=== PATIENT | female | born 1930 | race Hispanic/Latino ===

== ENCOUNTER 2017-05-20 17:57 | Inpatient (IN) | payer MEDICARE ==
--- NOTE | 2017-05-20 19:10 | C.PDOC ---
History Of Present Illness Patient presents to the ER with daughter due to an increased amount of falls and confusion within the last few days. Patient with increased confusing and difficulty taking care of herself. Time Seen by Provider: 05/20/17 19:10 Chief Complaint (Nursing): Medical Clearance History Per: Patient History/Exam Limitations: no limitations Onset/Duration Of Symptoms: Days Current Symptoms Are (Timing): Still Present Severity: None Pain Scale Rating Of: 0 Recent travel outside of the [place]: No Past Medical History Reviewed: Historical Data, Nursing Documentation, Vital Signs Vital Signs: Last Vital Signs Temp 98.3 F 05/20/17 18:15 Pulse 86 05/20/17 18:15 Resp 18 05/20/17 18:15 BP 128/79 05/20/17 18:15 Pulse Ox 95 05/20/17 19:53 - Medical History PMH: Alzheimer's Disease, Dementia, HTN, Kidney Stones, Osteoporosis Surgical History: Cholecystectomy - [facility] Procedures DILATION OF LEFT URETER WITH INTRALUMINAL DEVICE, ENDO (12/19/16) EXTIRPATION OF MATTER FROM LEFT KIDNEY, ENDO (12/19/16) REMOVAL OF INTRALUMINAL DEVICE FROM URETER, ENDO (12/19/16) Family History: States: No Known Family Hx - Social History Hx Alcohol Use: No Hx Substance Use: No - Immunization History Hx Tetanus Toxoid Vaccination: Yes Hx Influenza Vaccination: Yes Hx Pneumococcal Vaccination: Yes Review Of Systems Constitutional: Negative for: Fever, Chills Eyes: Negative for: Redness ENT: Negative for: Throat Pain Cardiovascular: Negative for: Chest Pain Respiratory: Negative for: Shortness of Breath Gastrointestinal: Negative for: Nausea, Vomiting, Diarrhea Genitourinary: Negative for: Dysuria Musculoskeletal: Negative for: Back Pain Skin: Negative for: Rash Neurological: Positive for: Confusion Psych: Negative for: Depression Physical Exam - Physical Exam Appears: Non-toxic Skin: Warm, Dry Head: Normacephalic Eye(s): bilateral: Normal Inspection Oral Mucosa: Moist Neck: Supple Chest: Symmetrical, No Tenderness Cardiovascular: Rhythm Regular, No Murmur Respiratory: No Rales, No Rhonchi, No Wheezing Gastrointestinal/Abdominal: Soft, No Tenderness Back: No CVA Tenderness Extremity: Normal ROM, No Tenderness Neurological/Psych: Oriented x3, Normal Speech, Normal Cognition Gait: With Assistance ED Course And Treatment - Laboratory Results Result Diagrams: 05/20/17 19:38 05/20/17 19:38 ECG: Interpreted By Me, Viewed By Me ECG Rhythm: Sinus Rhythm (78), Nonspecific Changes O2 Sat by Pulse Oximetry: 95 (Room air) Pulse Ox Interpretation: Normal - Radiology CXR: Interpreted by Me, Viewed By Me CXR Interpretation: Yes: Other (unchnaged from 12/19/16). No: Infiltrates, Fracture, Pnemothorax Progress Note: Blood work, EKG, CXR and urinalysis ordered. Disposition Discussed With Dr.: Jama Salmon Comment: accepted the pt on his service and took over the care at 9PM Doctor Will See Patient In The: Hospital Counseled Patient/Family Regarding: Studies Performed, Diagnosis - Disposition Disposition: HOSPITALIZED Disposition Time: 19:10 Condition: FAIR - POA Present On Arrival: Falls Or Trauma - Clinical Impression Clinical Impression: Dementia, Ambulatory dysfunction, Falls frequently - Scribe Statement The provider has reviewed the documentation as recorded by the Scribe Virgil Ann All medical record entries made by the Scribe were at my direction and personally dictated by me. I have reviewed the chart and agree that the record accurately reflects my personal performance of the history, physical exam, medical decision making, and the department course for this patient. I have also personally directed, reviewed, and agree with the discharge instructions and disposition. Decision To Admit - Pt Status Changed To: Hospital Disposition Of: Inpatient - Admit Certification Admit to Inpatient:: After my assessment, the patient will require hospitalization for at least two midnights. This is because of the severity of symptoms shown, intensity of services needed, and/or the medical risk in this patient being treated as an outpatient. - InPatient: Physician Admission Certification: I certify that this patient requires 2 or more midnights of care for the following reason:: After my assessment, the patient will require hospitalization for at least two midnights. This is because of the severity of symptoms shown, intensity of services needed, and/or the medical risk in this patient being treated as an outpatient. - . Bed Request Type: Regular Admitting Physician: Jama Salmon Patient Diagnosis: Dementia, Ambulatory dysfunction, Falls frequently
[2017-05-20 19:45] LABS: BASO # 0.1 K/uL (0.0-0.2); BASO % 0.9 % (0.0-2.0); EOS # 0.2 K/uL (0.0-0.7); EOS % 2.7 % (0.0-4.0); HEMOGLOBIN 11.8 g/dL (11.0-16.0); LYMPH # 2.6 K/uL (1.0-4.3); LYMPH % 34.6 % (20.0-40.0); MEAN CELL VOLUME 86.7 fL (81.0-99.0); MEAN CORPUSCULAR HEMOGLOBIN 29.8 pg (27.0-31.0); MEAN CORPUSCULAR HGB CONC 34.4 g/dL (33.0-37.0); MEAN PLATELET VOLUME 6.9 fL (7.2-11.7); MONO # 0.5 K/uL (0.0-0.8); MONO % 6.1 % (0.0-10.0); NEUT # 4.2 K/uL (1.8-7.0); NEUT % 55.7 % (50.0-75.0); NRBC % 0.1 % (0.0-2.0); RBC 3.97 Mil/uL (3.80-5.20); RED CELL DISTRIBUTION WIDTH 12.9 % (11.5-14.5); WHITE BLOOD COUNT 7.5 K/uL (4.8-10.8)
[2017-05-20 19:52] LABS: VENOUS BLOOD GAS BASE EXCESS 6.2 mmol/L (0.0-2.0); VENOUS BLOOD GAS PCO2 54 mmHg (40-60); VENOUS BLOOD GAS PO2 19 mm/Hg (30-55); VENOUS BLOOD PH 7.39 (7.32-7.43)
[2017-05-20 19:52] LABS: ALT/SGPT 17 U/L (9-52); AST/SGOT 18 U/L (14-36); BLOOD UREA NITROGEN 19 mg/dL (7-17); GFR AFRICAN-AMERICAN > 60; GFR NON-AFRICAN AMERICAN > 60
[2017-05-20 19:53] LABS: CALCIUM 9.6 mg/dl (8.6-10.4); LIPASE 83 U/L (23-300)
[2017-05-20 19:54] LABS: INR 1.1; PROTHROMBIN TIME 12.1 SECONDS (9.7-12.2)
--- NOTE | 2017-05-20 21:40 | CT ---
EXAM: CT Head Without Intravenous Contrast CLINICAL HISTORY: 86 years old, female; Signs and symptoms; Dizziness TECHNIQUE: Axial computed tomography images of the head/brain without intravenous contrast. This CT exam was performed using one or more of the following dose reduction techniques: automated exposure control, adjustment of the mA and/or kV according to patient size, and/or use of iterative reconstruction technique. EXAM DATE/TIME: 05/20/2017 7:51 PM COMPARISON: There are no prior studies for comparison. FINDINGS: Brain: There is dilatation of sulci gyri and ventricles. There is no midline shift. There is decreased attenuation in periventricular white matter. There are no focal masses. There are no focal hemorrhages. Hastings-white differentiation is visualized. Ventricles: See above. Bones: Cranial vault is intact. Soft tissues: unremarkable Sinuses: There is no acute sinusitis. Ears and mastoids: Middle ears and mastoids are unremarkable. Orbits: Orbital contents are unremarkable. IMPRESSION: Atrophy and small vessel disease, no bleed
[2017-05-21 08:16] VITALS: RESP 20
[2017-05-21] MEDS: GlipiZIDE 2.5 mg SR Tab PO SCH ×2 (08:46→18:08)
--- NOTE | 2017-05-21 10:51 | RAD ---
PROCEDURE: CHEST RADIOGRAPH, 1 VIEW HISTORY: Shortness of breath COMPARISON: 12/19/2016 FINDINGS: LUNGS: Mild venous congestion. Right hilar prominence. Linear increased markings at the right lung base may represent mild atelectasis. Lung apices partially excluded. Milder patchy increased markings at the right lung base. PLEURA: No pneumothorax or pleural fluid seen. CARDIOVASCULAR: Normal. OSSEOUS STRUCTURES: Chronic fracture deformity of the left proximal humerus. VISUALIZED UPPER ABDOMEN: Normal. OTHER FINDINGS: None. IMPRESSION: Mild venous congestion. Right hilar prominence. Linear increased markings at the right lung base may represent mild atelectasis. Lung apices partially excluded. Milder patchy increased markings at the right lung base.
[2017-05-21] MEDS: Enoxaparin 40 mg Syringe SC SCH (11:22)
[2017-05-21] MEDS: Pantoprazole 40 mg EC Tab PO SCH (11:22)
--- NOTE | 2017-05-21 13:13 | CP.PCM.HP ---
History of Present Illness - History of Present Illness History of Present Illness: COMPREHENSIVE HISTORY & PHYSICAL EXAM HPI PT WAS BROUGHT TO HOSPITAL BY DAUGHTER PT IS GETTING MORE CONFUSED AND HAS FREQUENT FALLS . DIFFICULT TO CARE FOE THE PT AT HOME . 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 HTN/RENAL STONE /COPD /SENILE DEMENTIA PERSONAL HIST: Smoking. N Alcohol. N Allergy N Travel_- . FAMILY HIST : ROS : Constitutional: Negative for weight change, chills, night sweats Eyes: Negative for redness, swelling, itching, discharge, vision changes, blurry vision, double vision, glaucoma, cataracts, Ears: Negative for hearing loss, ringing, , tinnitus, vertigo Nose: Negative for rhinorrhea, stuffiness, sniffing, itching, postnasal drip, discoloration, nasal congestion and epistaxis. Throat: Negative for throat clearing, sore throat, hoarseness, difficulty swallowing and difficulty speaking. Respiratory: Negative for cough, , sputum production, chest tightness, wheezing, pleuritic chest pain ,daytime somnolence, chronic cough, hemoptysis, snoring at night, Cardiovascular: Negative for chest pain, palpitations, orthopnea, PND, Edema of legs, leg cramps, angina, claudication, , irregular heartbeat, Neurology: Negative for irritability, muscle weakness, numbness and tingling, seizures, tremors, migraines, slurred speech, syncope. POS. PROGRRESIVE MEMORY LOSS Gastrointestinal: Negative for difficulty swallowing, diarrhea, constipation, black stools, rectal bleeding, nausea, flatulence, reflux, poor appetite, changes in bowel habits, abdominal pain Genitourinary: Negative for frequent urination, hematuria, discharge, incontinence, urinary retention, frequent UTI, Psychiatric: Negative for depression, anxiety/panic, suicidal tendencies, Musculoskeletal: Negative for swollen joints, back pain, , neck pain, morning stiffness of joints, . FREQUENT FALLS Skin: Negative for rash, ulcers, itching, dry skin and pigmented lesions. P/E: Constitutional: Appears stated age and in no apparent distress. Head: Normocephalic. Ears: External ear canals patent without inflammation. Tympanic membranes intact with normal light reflex and landmark. Eyes: Pupils are central, bilaterally equal, symmetrical and reacts to light with normal movements and no icterus or pallor. Nose: External nares are patent. Mucosa is pink Mouth-Throat: Good general appearance and condition. No post-pharyngeal/oropharyngeal erythema and tonsillar hypertrophy. Good dental hygiene. Neck-Lymphatic: Neck is supple with normal ROM, no thyromegaly, lymph nodes or masses. JVD is normal with no carotid bruit. Lungs: Clear to percussion and auscultation with bilateral normal air entry. SCATTERED RONCHI Cardiovascular: S1 and S2 are normal with no murmurs, gallops and rub. GI Exam: No hepatomegaly. Abdomen is soft and non-tender. No Organomegaly , masses or hernias are evident and bowel sounds are normal and active. Neurology: Higher function and all cranial nerves intact, with no gross motor or sensory deficit. Superficial and deep reflexes are normal with downwards planters. No cerebellar deficit with normal gait. Musculoskeletal: No tender spots with normal curvature of the spine with no swelling or restricted ROM of the small and large joints. Extremities: Homans sign absent. Intact pulses with no pitting edema, calf tenderness or skin color changes. Skin: No rash, eruptions or abnormal skin pigmentation LAB/RADIOLOGY: ASSESMENT : CHANGE OF MENTAL STATUS WITH WORSENING MEMORY HTN SENILE DEMENTIA PLAN: SEE ORDERS Present on Admission - Present on Admission Any Indicators Present on Admission: No Past Patient History - Past Medical History & Family History Past Medical History?: Yes - Past Social History Smoking Status: Never Smoked - CARDIAC Hx Cardiac Disorders: Yes Hx Hypertension: Yes - PULMONARY Hx Respiratory Disorders: No - NEUROLOGICAL Hx Neurological Disorder: Yes Hx Alzheimer's Disease: Yes Hx Dementia: Yes - HEENT Hx HEENT Problems: Yes Other/Comment: glasses for reading - RENAL Hx Chronic Kidney Disease: Yes Hx Kidney Stones: Yes - ENDOCRINE/METABOLIC Hx Endocrine Disorders: Yes Hx Diabetes Mellitus Type 2: Yes - HEMATOLOGICAL/ONCOLOGICAL Hx Blood Disorders: No - INTEGUMENTARY Hx Dermatological Problems: No - MUSCULOSKELETAL/RHEUMATOLOGICAL Hx Musculoskeletal Disorders: Yes Hx Falls: Yes Hx Osteoporosis: Yes Hx Unsteady Gait: Yes - GASTROINTESTINAL Hx Gastrointestinal Disorders: No - GENITOURINARY/GYNECOLOGICAL Hx Genitourinary Disorders: No - PSYCHIATRIC Hx Psychophysiologic Disorder: No Hx Substance Use: No - SURGICAL HISTORY Hx Surgeries: Yes Hx Cholecystectomy: Yes - ANESTHESIA Hx Anesthesia: Yes Hx Anesthesia Reactions: No Hx Malignant Hyperthermia: No Meds Allergies/Adverse Reactions: Allergies Allergy/AdvReac Type Severity Reaction Status Date / Time No Known Allergies Allergy Verified 05/20/17 18:12 Results - Vital Signs Recent Vital Signs: Last Vital Signs Temp 97.7 F 05/21/17 08:15 Pulse 70 05/21/17 08:15 Resp 20 05/21/17 08:15 BP 154/80 H 05/21/17 11:22 Pulse Ox 99 05/21/17 08:15 - Labs Result Diagrams: 05/20/17 19:38 05/20/17 19:38 Labs: Laboratory Results - last 24 hr 05/21/17 07:47 POC Glucose (mg/dL) 101
[2017-05-21] MEDS: (Novolin R) Insulin Human Regular 100 units/ml vial SC SCH ×2 (17:33→21:41)
[2017-05-22] MEDS: (Novolin R) Insulin Human Regular 100 units/ml vial SC SCH ×4 (08:20→22:02)
[2017-05-22] MEDS: GlipiZIDE 2.5 mg SR Tab PO SCH ×2 (08:20→16:42)
[2017-05-22] MEDS: Pantoprazole 40 mg EC Tab PO SCH (10:49)
[2017-05-22] MEDS: Enoxaparin 40 mg Syringe SC SCH (10:49)
--- NOTE | 2017-05-22 13:16 | CP.PCM.PN ---
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 TERM CARE PER FAMILY Objective - Vital Signs/Intake and Output Vital Signs (last 24 hours): Temp Pulse Resp BP Pulse Ox 98.3 F 76 20 153/82 H 98 05/22/17 08:00 05/22/17 08:00 05/22/17 08:00 05/22/17 10:49 05/22/17 08:00 Intake and Output: 05/22/17 05/22/17 11:59 23:59 Intake Total 0 Balance 0 - Medications Medications: Current Medications Enalapril Maleate (Vasotec) 5 mg PO DAILY [facility] Last Admin: 05/22/17 10:49 Dose: 5 mg Enoxaparin Sodium (Lovenox) 40 mg SC DAILY [facility] Last Admin: 05/22/17 10:49 Dose: 40 mg Glipizide (Glucotrol Xl) 2.5 mg PO ACBD [facility] Last Admin: 05/22/17 08:20 Dose: 2.5 mg Insulin Human Regular (Novolin R) 0 unit SC ACHS [facility] PRN Reason: Protocol Last Admin: 05/22/17 11:55 Dose: 2 unit Memantine (Namenda) 5 mg PO DAILY [facility] Last Admin: 05/22/17 10:49 Dose: 5 mg Metformin HCl (Glucophage) 500 mg PO BIDBS [facility] Pantoprazole Sodium (Protonix Ec Tab) 40 mg PO DAILY [facility] Last Admin: 05/22/17 10:49 Dose: 40 mg - Labs Labs: PT 12.1 SECONDS (9.7-12.2) 05/20/17 19:38 INR 1.1 05/20/17 19:38 APTT 30 SECONDS (21-34) 05/20/17 19:38
[2017-05-23 07:08] LABS: BASO % 0.7 % (0.0-2.0); EOS # 0.2 K/uL (0.0-0.7); EOS % 3.1 % (0.0-4.0); HEMOGLOBIN 10.9 g/dL (11.0-16.0); LYMPH % 35.1 % (20.0-40.0); MEAN CELL VOLUME 85.9 fL (81.0-99.0); MEAN CORPUSCULAR HEMOGLOBIN 29.9 pg (27.0-31.0); MEAN CORPUSCULAR HGB CONC 34.8 g/dL (33.0-37.0); MEAN PLATELET VOLUME 7.4 fL (7.2-11.7); MONO # 0.5 K/uL (0.0-0.8); NEUT # 3.1 K/uL (1.8-7.0); NEUT % 53.1 % (50.0-75.0); RBC 3.64 Mil/uL (3.80-5.20); RED CELL DISTRIBUTION WIDTH 12.9 % (11.5-14.5); WHITE BLOOD COUNT 5.8 K/uL (4.8-10.8)
[2017-05-23 07:40] LABS: GFR AFRICAN-AMERICAN > 60; GFR NON-AFRICAN AMERICAN > 60
[2017-05-23 07:41] LABS: BLOOD UREA NITROGEN 15 mg/dL (7-17); CALCIUM 8.8 mg/dl (8.6-10.4)
[2017-05-23] MEDS: (Novolin R) Insulin Human Regular 100 units/ml vial SC SCH ×4 (08:02→22:03)
[2017-05-23] MEDS: GlipiZIDE 2.5 mg SR Tab PO SCH ×2 (08:03→16:30)
[2017-05-23] MEDS: Enoxaparin 40 mg Syringe SC SCH (10:55)
[2017-05-23] MEDS: Potassium Chloride 20 mEq/15 ml LIQ UD PO SCH ×2 (10:55→14:51)
[2017-05-23] MEDS: Pantoprazole 40 mg EC Tab PO SCH (10:55)
--- NOTE | 2017-05-23 13:34 | CP.PCM.PN ---
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 TERM CARE PER FAMILY Objective - Vital Signs/Intake and Output Vital Signs (last 24 hours): Temp Pulse Resp BP Pulse Ox 97.5 F L 71 20 122/78 96 05/23/17 08:37 05/23/17 08:37 05/23/17 08:37 05/23/17 10:55 05/23/17 08:37 Intake and Output: 05/23/17 05/23/17 11:59 23:59 Intake Total 200 Balance 200 - Medications Medications: Current Medications Enalapril Maleate (Vasotec) 5 mg PO DAILY [facility] Last Admin: 05/23/17 10:55 Dose: 5 mg Enoxaparin Sodium (Lovenox) 40 mg SC DAILY [facility] Last Admin: 05/23/17 10:55 Dose: 40 mg Glipizide (Glucotrol Xl) 2.5 mg PO ACBD [facility] Last Admin: 05/23/17 08:03 Dose: Not Given Insulin Human Regular (Novolin R) 0 unit SC ACHS [facility] PRN Reason: Protocol Last Admin: 05/23/17 13:03 Dose: 3 unit Memantine (Namenda) 5 mg PO DAILY [facility] Last Admin: 05/23/17 10:55 Dose: 5 mg Metformin HCl (Glucophage) 500 mg PO BIDBS [facility] Last Admin: 05/23/17 08:03 Dose: Not Given Pantoprazole Sodium (Protonix Ec Tab) 40 mg PO DAILY [facility] Last Admin: 05/23/17 10:55 Dose: 40 mg Potassium Chloride (Potassium Chloride Oral Soln) 40 meq PO Q4H [facility] Stop: 05/23/17 14:16 Last Admin: 05/23/17 10:55 Dose: 40 meq - Labs Labs: 05/23/17 06:35 05/23/17 06:35 PT 12.1 SECONDS (9.7-12.2) 05/20/17 19:38 INR 1.1 05/20/17 19:38 APTT 30 SECONDS (21-34) 05/20/17 19:38
[2017-05-23 18:52] LABS: SQUAMOUS EPITHIAL 1 /hpf (0-5); URINE BACTERIA FEW (<OCC); URINE BILIRUBIN NEGATIVE (NEGATIVE); URINE BLOOD NEGATIVE (NEGATIVE); URINE CLARITY Clear (Clear); URINE COLOR Yellow (YELLOW); URINE GLUCOSE (UA) NORMAL (Normal); URINE LEUKOCYTE ESTERASE 3+ Leu/uL (Negative); URINE NITRATE NEGATIVE (NEGATIVE); URINE PROTEIN NEGATIVE (NEGATIVE); URINE UROBILINOGEN NORMAL mg/dL (0.2-1.0)
[2017-05-24] MEDS: Pantoprazole 40 mg EC Tab PO SCH (10:38)
[2017-05-24] MEDS: Enoxaparin 40 mg Syringe SC SCH (10:39)
[2017-05-24] MEDS: (Novolin R) Insulin Human Regular 100 units/ml vial SC SCH ×3 (10:39→18:17)
[2017-05-24] MEDS: GlipiZIDE 2.5 mg SR Tab PO SCH ×2 (10:39→17:30)
--- NOTE | 2017-05-24 11:55 | CP.PCM.CON ---
History of Present Illness - History of Present Illness History of Present Illness: Pt seen at bedside for eval of at risk foot care. Pt seen at request of PCP for c/o painful thickened nails that are hard to cut. Past Patient History - Past Medical History & Family History Past Medical History?: Yes - Past Social History Smoking Status: Never Smoked - CARDIAC Hx Cardiac Disorders: Yes Hx Hypertension: Yes - PULMONARY Hx Respiratory Disorders: No - NEUROLOGICAL Hx Neurological Disorder: Yes Hx Alzheimer's Disease: Yes Hx Dementia: Yes - HEENT Hx HEENT Problems: Yes Other/Comment: glasses for reading - RENAL Hx Chronic Kidney Disease: Yes Hx Kidney Stones: Yes - ENDOCRINE/METABOLIC Hx Diabetes Mellitus Type 2: Yes - HEMATOLOGICAL/ONCOLOGICAL Hx Blood Disorders: No - INTEGUMENTARY Hx Dermatological Problems: No - MUSCULOSKELETAL/RHEUMATOLOGICAL Hx Arthritis: Yes (KNEES; L SHOULDER) - GASTROINTESTINAL Hx Gastrointestinal Disorders: No - GENITOURINARY/GYNECOLOGICAL Hx Genitourinary Disorders: No - PSYCHIATRIC Hx Psychophysiologic Disorder: No Hx Substance Use: No - SURGICAL HISTORY Hx Surgeries: Yes Hx Cholecystectomy: Yes - ANESTHESIA Hx Anesthesia: Yes Hx Anesthesia Reactions: No Hx Malignant Hyperthermia: No Meds Allergies/Adverse Reactions: Allergies Allergy/AdvReac Type Severity Reaction Status Date / Time No Known Allergies Allergy Verified 05/20/17 18:12 - Medications Medications: Current Medications Enalapril Maleate (Vasotec) 5 mg PO DAILY [facility] Last Admin: 05/24/17 10:38 Dose: 5 mg Enoxaparin Sodium (Lovenox) 40 mg SC DAILY [facility] Last Admin: 05/24/17 10:39 Dose: 40 mg Glipizide (Glucotrol Xl) 2.5 mg PO ACBD [facility] Last Admin: 05/24/17 10:39 Dose: 2.5 mg Insulin Human Regular (Novolin R) [address] [facility] PRN Reason: Protocol Last Admin: 05/24/17 10:39 Dose: Not Given Memantine (Namenda) 5 mg PO DAILY [facility] Last Admin: 05/24/17 10:38 Dose: 5 mg Metformin HCl (Glucophage) 500 mg PO BIDBS [facility] Last Admin: 05/24/17 10:38 Dose: 500 mg Pantoprazole Sodium (Protonix Ec Tab) 40 mg PO DAILY [facility] Last Admin: 05/24/17 10:38 Dose: 40 mg Physical Exam - Additional Findings Additional findings: DP/PT pulses 1/4 B/L. Thickened, elongated, dystrophic, brittle, yellow, discolored nails x 10 with subungual debris (B/L 1-5). No breaks in skin. Skin is shiny and atrophic. Results - Vital Signs Recent Vital Signs: Last Vital Signs Temp 97.2 F L 05/24/17 08:00 Pulse 72 05/24/17 08:00 Resp 20 05/24/17 08:00 BP 127/70 05/24/17 10:38 Pulse Ox 97 05/24/17 08:00 - Labs Result Diagrams: 05/23/17 06:35 05/23/17 06:35 Labs: Laboratory Results - last 24 hr 05/23/17 05/23/17 05/23/17 16:59 18:35 21:33 POC Glucose (mg/dL) 134 H 214 H Urine Color Yellow Urine Clarity Clear Urine pH 7.0 Ur Specific [place] 1.013 Urine Protein Negative Urine Glucose (UA) Normal Urine Ketones Negative Urine Blood Negative Urine Nitrate Negative Urine Bilirubin Negative Urine Urobilinogen Normal Ur Leukocyte Esterase 3+ H Urine WBC (Auto) 26 H Urine RBC (Auto) < 1 Ur Squamous Epith Cells 1 Ur Transition Epith Cell < 1 Urine Bacteria Few H 05/24/17 05/24/17 07:16 11:38 POC Glucose (mg/dL) 216 H 259 H Urine Color Urine Clarity Urine pH Ur Specific [place] Urine Protein Urine Glucose (UA) Urine Ketones Urine Blood Urine Nitrate Urine Bilirubin Urine Urobilinogen Ur Leukocyte Esterase Urine WBC (Auto) Urine RBC (Auto) Ur Squamous Epith Cells Ur Transition Epith Cell Urine Bacteria Assessment & Plan - Assessment and Plan (Free Text) Assessment: 1. Onychomycosis 2. PVD 3. Fissured skin 4. Arthritis Plan: 1. H+P 2. Sharp debridment of mycotic nails 3. Cont with palliative care 4. Will f/u as outpatient Thank you for allowing us to participate in the care of your patient.
--- NOTE | 2017-05-24 13:27 | CP.PCM.DIS ---
Provider - Provider Date of Admission: 05/20/17 21:15 Attending physician: Jama Salmon MD Time Spent in preparation of Discharge (in minutes): 30 Hospital Course - Lab Results Lab Results: Micro Results 05/23/17 15:00 Urine Urine Culture - Preliminary Gram Negative Julio César Most Recent Lab Values WBC 5.8 K/uL (4.8-10.8) 05/23/17 06:35 RBC 3.64 Mil/uL (3.80-5.20) L 05/23/17 06:35 Hgb 10.9 g/dL (11.0-16.0) L 05/23/17 06:35 Hct 31.3 % (34.0-47.0) L 05/23/17 06:35 MCV 85.9 fL (81.0-99.0) 05/23/17 06:35 MCH 29.9 pg (27.0-31.0) 05/23/17 06:35 MCHC 34.8 g/dL (33.0-37.0) 05/23/17 06:35 RDW 12.9 % (11.5-14.5) 05/23/17 06:35 Plt Count 219 K/uL (130-400) 05/23/17 06:35 MPV 7.4 fL (7.2-11.7) 05/23/17 06:35 Neut % (Auto) 53.1 % (50.0-75.0) 05/23/17 06:35 Lymph % (Auto) 35.1 % (20.0-40.0) 05/23/17 06:35 Keith % (Auto) 8.0 % (0.0-10.0) 05/23/17 06:35 Eos % (Auto) 3.1 % (0.0-4.0) 05/23/17 06:35 Baso % (Auto) 0.7 % (0.0-2.0) 05/23/17 06:35 Neut # 3.1 K/uL (1.8-7.0) 05/23/17 06:35 Lymph # 2.0 K/uL (1.0-4.3) 05/23/17 06:35 Keith # 0.5 K/uL (0.0-0.8) 05/23/17 06:35 Eos # 0.2 K/uL (0.0-0.7) 05/23/17 06:35 Baso # 0.0 K/uL (0.0-0.2) 05/23/17 06:35 PT 12.1 SECONDS (9.7-12.2) 05/20/17 19:38 INR 1.1 05/20/17 19:38 APTT 30 SECONDS (21-34) 05/20/17 19:38 pO2 19 mm/Hg (30-55) L 05/20/17 19:48 VBG pH 7.39 (7.32-7.43) 05/20/17 19:48 VBG pCO2 54 mmHg (40-60) 05/20/17 19:48 VBG HCO3 27.9 mmol/L 05/20/17 19:48 VBG Total CO2 34.4 mmol/L (22-28) H 05/20/17 19:48 VBG O2 Sat (Calc) 30.6 % (40-65) L 05/20/17 19:48 VBG Base Excess 6.2 mmol/L (0.0-2.0) H 05/20/17 19:48 VBG Potassium 3.7 mmol/L (3.6-5.2) 05/20/17 19:48 Sodium 141.0 mmol/l (132-148) 05/20/17 19:48 Chloride 105.0 mmol/L (98-107) 05/20/17 19:48 Glucose 121 mg/dl (65-105) H 05/20/17 19:48 Lactate 2.3 mmol/L (0.7-2.1) H 05/20/17 19:48 Sodium 139 mmol/L (132-148) 05/23/17 06:35 Potassium 3.2 mmol/L (3.6-5.2) L 05/23/17 06:35 Chloride 104 mmol/L (98-107) 05/23/17 06:35 Carbon Dioxide 26 mmol/L (22-30) 05/23/17 06:35 Anion Gap 12 (10-20) 05/23/17 06:35 BUN 15 mg/dL (7-17) 05/23/17 06:35 Creatinine 0.6 MG/DL (0.7-1.2) L 05/23/17 06:35 Est GFR ( Amer) > 60 05/23/17 06:35 Est GFR (Non-Af Amer) > 60 05/23/17 06:35 POC Glucose (mg/dL) 259 mg/dL (65-110) H 05/24/17 11:38 Random Glucose 81 mg/dL (65-105) 05/23/17 06:35 Calcium 8.8 mg/dl (8.6-10.4) 05/23/17 06:35 Total Bilirubin 0.6 mg/dL (0.2-1.3) 05/20/17 19:38 AST 18 U/L (14-36) 05/20/17 19:38 ALT 17 U/L (9-52) 05/20/17 19:38 Alkaline Phosphatase 67 U/L (38-126) 05/20/17 19:38 Total Protein 8.0 g/dL (6.3-8.3) 05/20/17 19:38 Albumin 4.0 g/dL (3.5-5.0) 05/20/17 19:38 Globulin 4.0 gm/dL (2.2-3.9) H 05/20/17 19:38 Albumin/Globulin Ratio 1.0 (1.0-2.1) 05/20/17 19:38 Lipase 83 U/L (23-300) 05/20/17 19:38 Venous Blood Potassium 3.7 mmol/L (3.6-5.2) 05/20/17 19:48 Urine Color Yellow (YELLOW) 05/23/17 18:35 Urine Clarity Clear (Clear) 05/23/17 18:35 Urine pH 7.0 (5.0-8.0) 05/23/17 18:35 Ur Specific [place] 1.013 (1.003-1.030) 05/23/17 18:35 Urine Protein Negative mg/dL (NEGATIVE) 05/23/17 18:35 Urine Glucose (UA) Normal mg/dL (Normal) 05/23/17 18:35 Urine Ketones Negative mg/dL (NEGATIVE) 05/23/17 18:35 Urine Blood Negative (NEGATIVE) 05/23/17 18:35 Urine Nitrate Negative (NEGATIVE) 05/23/17 18:35 Urine Bilirubin Negative (NEGATIVE) 05/23/17 18:35 Urine Urobilinogen Normal mg/dL (0.2-1.0) 05/23/17 18:35 Ur Leukocyte Esterase 3+ Bibiana/uL (Negative) H 05/23/17 18:35 Urine WBC (Auto) 26 /hpf (0-5) H 05/23/17 18:35 Urine RBC (Auto) < 1 /hpf (0-3) 05/23/17 18:35 Ur Squamous Epith Cells 1 /hpf (0-5) 05/23/17 18:35 Ur Transition Epith Cell < 1 /hpf (0-3) 05/23/17 18:35 Urine Bacteria Few (<OCC) H 05/23/17 18:35 - Hospital Course Hospital Course: PT WAS BROUGHT TO HOSPITAL BY DAUGHTER PT IS GETTING MORE CONFUSED AND HAS FREQUENT FALLS . DIFFICULT TO CARE FOE THE PT AT HOME . PT IS ADMITTED TO R/O ANY ACUTE PATHOLOGY AND WILL BE [facility]ERRED TO [facility] FOR SENIOR CARE CARE PAST HIST. HTN/RENAL STONE /COPD /SENILE DEMENTIA PT. WAS MANAGED WITH ROUTINE TREATMENT FAMILY REFUSED TO GIVE FINANCIAL INFO TO MEDICAID PT HAS NO MEDICARE DAYS LEFT AFTER EXTENSIVE DISCUSSION BETWEEN SS AND DAUGHTER , THE FAMILY DECIDED TO TAKE PT HOME AND WILL MANAGE AT HOME Discharge Plan - Follow Up Plan Condition: FAIR Disposition: HOME/ ROUTINE
--- NOTE | 2017-05-24 16:18 | CP.PCM.CON ---
History of Present Illness - History of Present Illness History of Present Illness: INFECTIOUS DISEASE CONSULT: HPI: 86-year-old female with history of Alzheimer's dementia, hypertension, kidney stones, osteoporosis who was brought in by family members on 05/20/17 due to increased amount of falls and confusion within the last few days prior to admission. As per patient daughter patient was unable to take care of herself at home. She was recently discharged from subacute rehabilitation after a long stay at [facility] subacute rehabilitation. Patient had extensive workup including CT scan of the head on admission which showed atrophy and small vessel disease and no acute bleed. No history of fever or chills. Patient denies any cough or expectoration or shortness of breath. Patient was ready to be discharged today when urine cultures reported to be positive for gram-negative rods. History obtained mainly from the chart and the staff. Patient speaks [place] only and difficult to obtain facts. As per staff patient appetite is fair and patient denies any hematuria, dysuria or flank pain. Infectious disease consultation requested by PMD for further evaluation. PMH: Alzheimer's Disease, Dementia, HTN, Kidney Stones, Osteoporosis Surgical History: Cholecystectomy - [facility] Procedures DILATION OF LEFT URETER WITH INTRALUMINAL DEVICE, ENDO (12/19/16) EXTIRPATION OF MATTER FROM LEFT KIDNEY, ENDO (12/19/16) REMOVAL OF INTRALUMINAL DEVICE FROM URETER, ENDO (12/19/16) Family History: States: No Known Family Hx - Social History Hx Alcohol Use: No Hx Substance Use: No - Immunization History Hx Tetanus Toxoid Vaccination: Yes Hx Influenza Vaccination: Yes Hx Pneumococcal Vaccination: Yes Review of Systems - Constitutional Constitutional: absent: Chills, Fever Past Patient History - Past Medical History & Family History Past Medical History?: Yes - Past Social History Smoking Status: Never Smoked - CARDIAC Hx Cardiac Disorders: Yes Hx Hypertension: Yes - PULMONARY Hx Respiratory Disorders: No - NEUROLOGICAL Hx Neurological Disorder: Yes Hx Alzheimer's Disease: Yes Hx Dementia: Yes - HEENT Hx HEENT Problems: Yes Other/Comment: glasses for reading - RENAL Hx Chronic Kidney Disease: Yes Hx Kidney Stones: Yes - ENDOCRINE/METABOLIC Hx Diabetes Mellitus Type 2: Yes - HEMATOLOGICAL/ONCOLOGICAL Hx Blood Disorders: No - INTEGUMENTARY Hx Dermatological Problems: No - MUSCULOSKELETAL/RHEUMATOLOGICAL Hx Arthritis: Yes (KNEES; L SHOULDER) - GASTROINTESTINAL Hx Gastrointestinal Disorders: No - GENITOURINARY/GYNECOLOGICAL Hx Genitourinary Disorders: No - PSYCHIATRIC Hx Psychophysiologic Disorder: No Hx Substance Use: No - SURGICAL HISTORY Hx Surgeries: Yes Hx Cholecystectomy: Yes - ANESTHESIA Hx Anesthesia: Yes Hx Anesthesia Reactions: No Hx Malignant Hyperthermia: No Meds Allergies/Adverse Reactions: Allergies Allergy/AdvReac Type Severity Reaction Status Date / Time No Known Allergies Allergy Verified 05/20/17 18:12 - Medications Medications: Current Medications Enalapril Maleate (Vasotec) 5 mg PO DAILY [facility] Last Admin: 05/24/17 10:38 Dose: 5 mg Enoxaparin Sodium (Lovenox) 40 mg SC DAILY [facility] Last Admin: 05/24/17 10:39 Dose: 40 mg Glipizide (Glucotrol Xl) 2.5 mg PO ACBD [facility] Last Admin: 05/24/17 10:39 Dose: 2.5 mg Insulin Human Regular (Novolin R) 0 unit SC ACHS [facility] PRN Reason: Protocol Last Admin: 05/24/17 12:55 Dose: 4 unit Memantine (Namenda) 5 mg PO DAILY [facility] Last Admin: 05/24/17 10:38 Dose: 5 mg Metformin HCl (Glucophage) 500 mg PO BIDBS [facility] Last Admin: 05/24/17 10:38 Dose: 500 mg Pantoprazole Sodium (Protonix Ec Tab) 40 mg PO DAILY [facility] Last Admin: 05/24/17 10:38 Dose: 40 mg Physical Exam - Constitutional Appears: No Acute Distress, Confused - Head Exam Head Exam: NORMAL INSPECTION - Eye Exam Eye Exam: EOMI, PERRL - ENT Exam ENT Exam: Normal Oropharynx - Neck Exam Neck exam: Positive for: Normal Inspection - Respiratory Exam Respiratory Exam: Clear to Auscultation Bilateral, NORMAL BREATHING PATTERN - Cardiovascular Exam Cardiovascular Exam: REGULAR RHYTHM, +S1, +S2. absent: Systolic Murmur - GI/Abdominal Exam GI & Abdominal Exam: Normal Bowel Sounds, Soft. absent: Organomegaly - Extremities Exam Extremities exam: Positive for: normal capillary refill, pedal pulses present. Negative for: calf tenderness, pedal edema - Neurological Exam Neurological exam: CN II-XII Intact, Reflexes Normal - Skin Skin Exam: Normal Color, Warm Results - Vital Signs Recent Vital Signs: Last Vital Signs Temp 97.2 F L 05/24/17 08:00 Pulse 81 05/24/17 12:20 Resp 20 05/24/17 08:00 BP 127/70 05/24/17 10:38 Pulse Ox 96 05/24/17 12:20 - Labs Result Diagrams: 05/23/17 06:35 05/23/17 06:35 Labs: Laboratory Results - last 24 hr 05/23/17 05/23/17 05/23/17 16:59 18:35 21:33 POC Glucose (mg/dL) 134 H 214 H Urine Color Yellow Urine Clarity Clear Urine pH 7.0 Ur Specific [place] 1.013 Urine Protein Negative Urine Glucose (UA) Normal Urine Ketones Negative Urine Blood Negative Urine Nitrate Negative Urine Bilirubin Negative Urine Urobilinogen Normal Ur Leukocyte Esterase 3+ H Urine WBC (Auto) 26 H Urine RBC (Auto) < 1 Ur Squamous Epith Cells 1 Ur Transition Epith Cell < 1 Urine Bacteria Few H 05/24/17 05/24/17 07:16 11:38 POC Glucose (mg/dL) 216 H 259 H Urine Color Urine Clarity Urine pH Ur Specific [place] Urine Protein Urine Glucose (UA) Urine Ketones Urine Blood Urine Nitrate Urine Bilirubin Urine Urobilinogen Ur Leukocyte Esterase Urine WBC (Auto) Urine RBC (Auto) Ur Squamous Epith Cells Ur Transition Epith Cell Urine Bacteria - Imaging and Cardiology Chest x-ray Status: Report reviewed by me (MILD VENOUS CONGESTION.) Assessment & Plan (1) UTI (urinary tract infection) Assessment and Plan: PATIENT PRESENTLY HAS ASYMPTOMATIC BACTERIURIA / OR COLONIZATION. NO FEVER OR LEUKOCYTOSIS. WILL TRY TO GET CLEAN CATCH MIDSTREAM ua AND URINE CULTURE AND FOLLOW UP CLOSELY OUTPATIENT. DISCUSSED WITH THE STAFF AND NURSE PRACTITIONER MS ANITA SMITH. PATIENT HAS PREVIOUS HISTORY BILATERAL RENAL CALCULI AND PREVIOUS LEFT URETERAL STENT ON ct OF THE ABDOMEN AND PELVIS PERFORMED 12/28/16. PATIENT DOES HAVE HISTORY OF PREVIOUS UTI WITH PROTEUS MIRABILIS/ VRE PATIENT CAN BE FOLLOWED UP OUTPATIENT. fOLLOW UP IN OFFICE NEXT WEEK. Status: Acute (2) Dementia Assessment and Plan: CT HEAD 05/20/17 SHOWS ATROPHY AND SMALL VESSEL DISEASE. NO INTRACRANIAL BLEED. PATIENT HAS NO DEFICITS. CONTINUE TO OBSERVE. Status: Acute (3) Falls frequently Status: Acute
[2017-05-24 17:02] VITALS: BP 123/74; PULSE 88; TEMP 97.8; O2SAT 95
[2017-05-24 17:36] LABS: SQUAMOUS EPITHIAL 1 /hpf (0-5); URINE BACTERIA MANY (<OCC); URINE BILIRUBIN NEGATIVE (NEGATIVE); URINE BLOOD 1+ (NEGATIVE); URINE CLARITY Hazy (Clear); URINE COLOR Yellow (YELLOW); URINE GLUCOSE (UA) NORMAL (Normal); URINE LEUKOCYTE ESTERASE 3+ Leu/uL (Negative); URINE NITRATE POSITIVE (NEGATIVE); URINE PROTEIN NEGATIVE (NEGATIVE); URINE UROBILINOGEN NORMAL mg/dL (0.2-1.0); WBC CLUMPS MANY /hpf
--- NOTE | 2017-06-10 13:30 | CARD ---
APPROVED REPORT EKG Measurement Heart [id number] <Conclusion> Normal sinus rhythm Low voltage QRS Borderline ECG
== END 2017-05-24 18:15 | disposition home or self-care (01) | DRG 57 ==
LOC: C.ER 17:57 → C.9E 21:15 → C.3T 22:15
PROVIDERS: ADMIT Internal Medicine Cardiovascular Disease; ATTEND Internal Medicine Cardiovascular Disease
DX: G30.1 Alzheimer's disease with late onset (principal); E11.22 Type 2 diabetes mellitus with diabetic chronic kidney disease; N39.0 Urinary tract infection, site not specified; F02.80 Dementia in other diseases classified elsewhere, unspecified severity, without behavioral disturbance, psychotic disturbance, mood disturbance, and anxiety; B35.1 Tinea unguium; I12.9 Hypertensive chronic kidney disease with stage 1 through stage 4 chronic kidney disease, or unspecified chronic kidney disease; J44.9 Chronic obstructive pulmonary disease, unspecified; I73.9 Peripheral vascular disease, unspecified; M19.90 Unspecified osteoarthritis, unspecified site; N20.0 Calculus of kidney; R29.6 Repeated falls

== ENCOUNTER 2017-06-12 15:51 | Inpatient (IN) | payer MEDICARE ==
--- NOTE | 2017-06-12 16:18 | C.PDOC ---
History Of Present Illness Patient is a 86 y/o female, whose past medical history includes Alzheimer's, dementia, hypertension, kidney stones, and osteoporosis, presents to the emergency department with complaints of right sided chest pain. Patient states she feels pain because she fell. Patient was discharged on 05/24 after a fall. Otherwise, denies any cough, fever, or any other associated symptoms at this time. History limited due to dementia. LIMITED DUE TO DEMENTIA CO R SIDED CP "BC I FEEL". DENIES COUGH, FEVER, OTHER SX history of Alzheimer's dementia, hypertension, kidney stones, osteoporosis DC 05/24 SP FALL, ABN UA. ROS UTO EXAM NONTOXIC NAD HEENT ATRAUM LUNGS NEG CHEST WALL ATRAUM NONTEND BACK B/L MID BACK TEND ATRAUM PAIN W AROM NO LS TEND ABD NEG NEURO NO FOCAL DEF EXT R KNEE MOD SWELL. LIMITED AROM DUE TO PAIN. NO DEFORM SKIN +HEALING ABRASION R KNEE. NO INFXN NEG Time Seen by Provider: 06/12/17 16:15 Chief Complaint (Nursing): Back Pain History Per: Patient History/Exam Limitations: clinical condition Current Symptoms Are (Timing): Still Present Recent travel outside of the [place]: No Additional History Per: Patient Past Medical History Reviewed: Historical Data, Nursing Documentation, Vital Signs Vital Signs: Last Vital Signs Temp 98.1 F 06/12/17 16:01 Pulse 66 06/12/17 17:48 Resp 18 06/12/17 17:48 BP 122/57 L 06/12/17 17:48 Pulse Ox 98 06/12/17 18:48 - Medical History PMH: Alzheimer's Disease, Arthritis (KNEES; L SHOULDER), Dementia, HTN, Hypercholesterolemia, Kidney Stones, Osteoporosis, Chronic Kidney Disease Surgical History: Cholecystectomy - [facility] Procedures DILATION OF LEFT URETER WITH INTRALUMINAL DEVICE, ENDO (12/19/16) EXTIRPATION OF MATTER FROM LEFT KIDNEY, ENDO (12/19/16) REMOVAL OF INTRALUMINAL DEVICE FROM URETER, ENDO (12/19/16) Family History: States: Unknown Family Hx - Social History Hx Alcohol Use: No Hx Substance Use: No - Immunization History Hx Tetanus Toxoid Vaccination: Yes Hx Influenza Vaccination: Yes Hx Pneumococcal Vaccination: Yes Review Of Systems Review Of Systems: ROS cannot be obtained secondary to pt's inabilty to answer questions. Constitutional: Negative for: Fever, Chills Cardiovascular: Positive for: Chest Pain Respiratory: Negative for: Cough Physical Exam - Physical Exam Appears: Non-toxic, No Acute Distress Skin: Warm, Dry, Other (healing abrasion to right knee, no signs of infection) Head: Atraumatic, Normacephalic Eye(s): bilateral: Normal Inspection, PERRL, EOMI Ear(s): Bilateral: Normal Nose: Normal Oral Mucosa: Moist Throat: Normal, No Erythema, No Exudate Chest: Symmetrical, No Deformity, No Tenderness Cardiovascular: Rhythm Regular, No Murmur Respiratory: Normal Breath Sounds, No Accessory Muscle Use, No Rales, No Rhonchi , No Wheezing Gastrointestinal/Abdominal: Soft, No Tenderness Back: No CVA Tenderness, No Vertebral Tenderness, Paraspinal Tenderness ( tenderness to bilateral mid back, no LS tenderness, pain with ROM), Other Extremity: No Normal ROM (limited ROM of right knee secondary to pain), Capillary Refill (< 2 sec.), No Deformity, Swelling (moderate swelling to right knee) Neurological/Psych: Oriented x3, Normal Speech, Normal Cognition ED Course And Treatment - Laboratory Results Result Diagrams: 06/12/17 17:04 06/12/17 17:04 ECG: Interpreted By Mn ECG Rhythm: Sinus Rhythm ECG Interpretation: Normal Rate From EC O2 Sat by Pulse Oximetry: 98 Pulse Ox Interpretation: Normal Progress Note: Blood work, urinalysis, Abd & pelvis CT, EKG, CXR ordered and reviewed. Patient was given Toradol. Progress - Re-Evaluation Re-evaluation Note: 06/12/17 16:42 D/W DR PETERSON PT W HO COPD, UNRELIABLE HISTORIAN. REQUESTS CALL BACK W ER RESULTS 06/12/17 17:30 FAMILY @ BEDSIDE: STATES PT W RECUR FALL 1.5 WEEKS AGO NOW W NEW R KNEE INJURY AND SWELLING. TRIPPED DOWN STEPS WHILE USING WALKER. ALSO CO R SIDED CHEST WALL PAIN SINCE FALL, UNK IF DIRECT INJURY. CO EXAC CHRONIC BACK PAIN SINCE FALL. MORE INTENSE THAN USUAL PAIN, WORSE W MOVEMENT. FAMILH CONCERN FOR RECUR KIDNEY STONES. NO UTI SX, FEVER 06/12/17 18:48 EXAM [facility] PRIOR. PENDING UA, KNEE XRAY - Data Reviewed Data Reviewed: Lab, Diagnostic imaging, EKG, Old records Disposition Counseled Patient/Family Regarding: Studies Performed, Diagnosis - Disposition Disposition Time: 19:00 Condition: STABLE - Clinical Impression Clinical Impression: Acute exacerbation of chronic low back pain, Knee pain, Chest wall pain - Scribe Statement The provider has reviewed the documentation as recorded by the Sandyibdavid Gillespie All medical record entries made by the Scribe were at my direction and personally dictated by me. I have reviewed the chart and agree that the record accurately reflects my personal performance of the history, physical exam, medical decision making, and the department course for this patient. I have also personally directed, reviewed, and agree with the discharge instructions and disposition. Physician Patient Turnover Patient Signed Over To: Stuart Walker Handoff Comments: TONI XRAY, UA, MARCIANOO
[2017-06-12 17:09] LABS: BASO # 0.1 K/uL (0.0-0.2); BASO % 0.8 % (0.0-2.0); EOS # 0.1 K/uL (0.0-0.7); EOS % 1.7 % (0.0-4.0); HEMATOCRIT 32.4 % (34.0-47.0); LYMPH # 1.6 K/uL (1.0-4.3); MEAN CELL VOLUME 87.1 fL (81.0-99.0); MEAN CORPUSCULAR HEMOGLOBIN 30.3 pg (27.0-31.0); MEAN CORPUSCULAR HGB CONC 34.8 g/dL (33.0-37.0); MONO # 0.4 K/uL (0.0-0.8); MONO % 5.2 % (0.0-10.0); RED CELL DISTRIBUTION WIDTH 13.5 % (11.5-14.5); WHITE BLOOD COUNT 7.8 K/uL (4.8-10.8)
[2017-06-12 17:16] LABS: CHLORIDE 97 mmol/L (98-107)
[2017-06-12 17:17] LABS: POTASSIUM 3.4 mmol/L (3.6-5.2); SODIUM 139 mmol/L (132-148)
[2017-06-12 17:19] LABS: GFR AFRICAN-AMERICAN > 60
[2017-06-12 17:20] LABS: BLOOD UREA NITROGEN 19 mg/dL (7-17); CARBON DIOXIDE 25 mmol/L (22-30); GLUCOSE,RANDOM 179 mg/dL (65-105)
[2017-06-12] MEDS ORDERED: Lidocaine 5% Patch TD STA ×2 (17:34)
[2017-06-12] MEDS ORDERED: Lidocaine 5% Patch TD ONE (17:41)
--- NOTE | 2017-06-12 17:56 | RAD ---
HISTORY: CHEST PAIN COMPARISON: Chest x-ray performed 05/20/17 TECHNIQUE: Chest, one view. FINDINGS: Patient's chin obscures evaluation of the lung apices. Examination limited by habitus. LUNGS: No focal consolidation. Increased lucencies especially within the bilateral upper lung corley compatible with underlying emphysema. Please note that chest x-ray has limited sensitivity for the detection of pulmonary masses. PLEURA: No significant pleural effusion identified. No definite pneumothorax . CARDIOVASCULAR: Heart size appears within normal limits. OSSEOUS STRUCTURES: Osseous demineralization. Degenerative changes of the spine and shoulders. Chronic fracture deformity of the left proximal humerus. VISUALIZED UPPER ABDOMEN: Unremarkable. OTHER FINDINGS: None. IMPRESSION: Emphysematous changes.
--- NOTE | 2017-06-12 18:42 | CT ---
PROCEDURE: CT Abdomen and Pelvis without Oral or IV contrast. HISTORY: BACK PAIN RO RENAL STONE COMPARISON: CT abdomen and pelvis without contrast performed 12/28/16 TECHNIQUE: Contiguous axial images of the abdomen and pelvis. No oral or IV contrast administered. Coronal and Sagittal reformats generated and reviewed. Radiation dose: Total exam DLP = 890.02 mGy-cm. This CT exam was performed using one or more of the following dose reduction techniques: Automated exposure control, adjustment of the mA and/or kV according to patient size, and/or use of iterative reconstruction technique. FINDINGS: There is limited evaluation of the solid organs without the administration of IV contrast. LOWER THORAX: No visible consolidation, pleural effusion, or pneumothorax. Partially imaged dense coronary and valvular calcifications. Small hiatal hernia/distal esophageal wall thickening. LIVER: Unremarkable unenhanced appearance. GALLBLADDER AND BILE DUCTS: Cholecystectomy. Dilated common bile duct. PANCREAS: Atrophy. SPLEEN: Unremarkable unenhanced appearance. ADRENALS: Unremarkable unenhanced appearance. KIDNEYS AND URETERS: Interval removal of left ureteral stent. No hydronephrosis or obstructing renal calculus. 6 mm nonobstructing right upper pole calculus. Additional punctate bilateral upper lobe calculi measuring approximately 2 mm. BLADDER: Mildly thick-walled urinary bladder may be exaggerated by under distension. REPRODUCTIVE: Uterus is absent consistent with hysterectomy. APPENDIX: The appendix is not identified. No secondary signs of acute appendicitis. BOWEL: The stomach is nondistended. Lack of oral contrast limits evaluation for bowel pathology. The bowel loops appear within normal limits of caliber without evidence of intestinal obstruction. PERITONEUM: No significant free fluid. No definite free air. LYMPH NODES: No bulky lymphadenopathy identified. VASCULATURE: Atherosclerotic calcifications. No aortic aneurysm. BONES: Diffuse osseous demineralization. Multilevel degenerative changes. OTHER FINDINGS: None. IMPRESSION: Interval removal of left ureteral stent. No hydronephrosis or obstructing renal calculus. 6 mm nonobstructing right upper pole calculus. Additional punctate bilateral upper lobe calculi measuring approximately 2 mm. Mildly thick-walled urinary bladder may be exaggerated by under distension. Recommend correlation with urinalysis. Additional findings as above.
[2017-06-12 19:46] LABS: RBC URINE 4 /hpf (0-3); URINE BACTERIA MANY (<OCC); URINE BILIRUBIN NEGATIVE (NEGATIVE); URINE COLOR Amber (YELLOW); URINE GLUCOSE (UA) NORMAL (Normal); URINE KETONE TRACE mg/dL (NEGATIVE); URINE LEUKOCYTE ESTERASE 3+ Leu/uL (Negative); URINE PROTEIN 1+ mg/dL (NEGATIVE); URINE UROBILINOGEN NORMAL mg/dL (0.2-1.0); WBC URINE 218 /hpf (0-5)
[2017-06-12 19:47] LABS: URINE BLOOD 1+ (NEGATIVE)
[2017-06-12] MEDS ORDERED: Piperacillin/Tazobact 3.375 gm 100 ML IVPB STA (19:48)
[2017-06-12] MEDS ORDERED: Piperacillin/Tazobact 3.375 gm 100 ML IVPB ONE (20:02)
[2017-06-12] MEDS: (Novolog) Insulin Aspart, Recombinant 100 u/ml 10 ml vial SC SCH (22:13)
--- NOTE | 2017-06-12 23:20 | CP.PCM.CON ---
History of Present Illness - History of Present Illness History of Present Illness: INFECTIOUS DISEASE CONSULT; HPI: 86-year-old female with history of HTN, Alzheimer's dementia, kidney stones, osteoporosis was brought in by her daughter with complaints of change in mental status, shortness of breath and right-sided chest and flank pain. Patient well known to me from her previous admission and has had UTIs in the past. Patient also had a history of left ureteral stent which was removed in November 2016. Patient unable to give any details but at times is incontinent of urine. Patient only speaks [place] and difficult to obtain facts. In the ER patient was found to have foul-smelling urine with multiple WBCs. No history of hematuria. Infectious disease consultation was requested by PMD for further therapy . PMH: Alzheimer's Disease, Dementia, HTN, Kidney Stones, Osteoporosis Surgical History: Cholecystectomy - [facility] Procedures DILATION OF LEFT URETER WITH INTRALUMINAL DEVICE, ENDO (12/19/16) EXTIRPATION OF MATTER FROM LEFT KIDNEY, ENDO (12/19/16) REMOVAL OF INTRALUMINAL DEVICE FROM URETER, ENDO (12/19/16) Family History: States: No Known Family Hx - Social History Hx Alcohol Use: No Hx Substance Use: No - Immunization History Hx Tetanus Toxoid Vaccination: Yes Hx Influenza Vaccination: Yes Hx Pneumococcal Vaccination: Yes Review of Systems - Review of Systems Systems not reviewed;Unavailable: Dementia, Altered Mental Status Past Patient History - Infectious Disease Hx of Infectious Diseases: None - Past Medical History & Family History Past Medical History?: Yes - Past Social History Smoking Status: Never Smoked - CARDIAC Hx Hypercholesterolemia: Yes Hx Hypertension: Yes - PULMONARY Hx Respiratory Disorders: No - NEUROLOGICAL Hx Alzheimer's Disease: Yes Hx Dementia: Yes - HEENT Hx HEENT Problems: Yes Other/Comment: glasses for reading - RENAL Hx Chronic Kidney Disease: Yes Hx Kidney Stones: Yes - ENDOCRINE/METABOLIC Hx Diabetes Mellitus Type 2: Yes - HEMATOLOGICAL/ONCOLOGICAL Hx Blood Disorders: No - INTEGUMENTARY Hx Dermatological Problems: No - MUSCULOSKELETAL/RHEUMATOLOGICAL Hx Arthritis: Yes (KNEES; L SHOULDER) Hx Osteoporosis: Yes - GASTROINTESTINAL Hx Gastrointestinal Disorders: No - GENITOURINARY/GYNECOLOGICAL Hx Genitourinary Disorders: No - PSYCHIATRIC Hx Substance Use: No - SURGICAL HISTORY Hx Cholecystectomy: Yes - ANESTHESIA Hx Anesthesia: Yes Hx Anesthesia Reactions: No Hx Malignant Hyperthermia: No Meds Allergies/Adverse Reactions: Allergies Allergy/AdvReac Type Severity Reaction Status Date / Time No Known Allergies Allergy Verified 06/12/17 16:05 - Medications Medications: Current Medications Enalapril Maleate (Vasotec) 5 mg PO DAILY [facility] Glipizide (Glucotrol Xl) 2.5 mg PO ACBD [facility] Insulin Aspart (Novolog) 0 unit SC ACHS [facility] PRN Reason: Protocol Last Admin: 06/12/17 22:13 Dose: Not Given Memantine (Namenda) 5 mg PO DAILY [facility] Metformin HCl (Glucophage) 500 mg PO BID [facility] Pantoprazole Sodium (Protonix Ec Tab) 40 mg PO DAILY [facility] Physical Exam - Constitutional Appears: No Acute Distress - Head Exam Head Exam: NORMAL INSPECTION - Eye Exam Eye Exam: EOMI, PERRL, Scleral icterus - ENT Exam ENT Exam: Normal Oropharynx - Neck Exam Neck exam: Positive for: Normal Inspection. Negative for: Meningismus - Respiratory Exam Respiratory Exam: Clear to Auscultation Bilateral, NORMAL BREATHING PATTERN - Cardiovascular Exam Cardiovascular Exam: REGULAR RHYTHM, +S1, +S2 - GI/Abdominal Exam GI & Abdominal Exam: Normal Bowel Sounds, Soft, Tenderness (mild tenderness on deep palpation left flank region.) - Extremities Exam Extremities exam: Positive for: pedal pulses present. Negative for: calf tenderness, pedal edema - Neurological Exam Neurological exam: Altered, CN II-XII Intact, Reflexes Normal - Psychiatric Exam Psychiatric exam: Flat Affect - Skin Skin Exam: Normal Color, Warm Results - Vital Signs Recent Vital Signs: Last Vital Signs Temp 98 F 06/12/17 22:56 Pulse 68 06/12/17 22:56 Resp 18 06/12/17 22:56 BP 152/82 H 06/12/17 22:56 Pulse Ox 97 06/12/17 22:56 - Labs Result Diagrams: 06/12/17 17:04 06/12/17 17:04 Labs: Laboratory Results - last 24 hr 06/12/17 21:31 POC Glucose (mg/dL) 177 H - Imaging and Cardiology CT scan - abdomenand pelvis without by mouth or IV contrast Status: Report reviewed by me Assessment & Plan (1) Sepsis Assessment and Plan: pancultures Patient received 1 dose of Zosyn 3.375 in the ER 06/12 Start IV Azactam 1 g every 8 hourly for gram-negative coverage as previous history of Escherichia coli in the urine. Follow-up cultures to adjust antibiotics Status: Acute (2) UTI (urinary tract infection) Assessment and Plan: patient has history of left ureteral stent and bilateral kidney/ureteral stones. Patient stent has been removed in November 2016. CT of the abdomen and pelvis reviewed presently no hydro-or obstructive renal calculi. Continue IV Azactam 1 g every 8 hourly while awaiting cultures Status: Acute (3) Ureteral calculus, left Assessment and Plan: history of left hydro-and left ureteral stent which has been removed in November 2016. Present CT of the abdomen and pelvis without contrast shows no hydro-or obstructive renal calculi. Status: Acute (4) Falls frequently Assessment and Plan: c/o recurrent falls as per family member Status: Acute (5) COPD exacerbation Assessment and Plan: chest x-ray 06/12/17 shows extensive emphysematous changes. Pulmonary toilet. Status: Acute (6) Dementia Status: Acute
--- NOTE | 2017-06-12 23:33 | CP.PCM.HP ---
History of Present Illness - History of Present Illness History of Present Illness: COMPREHENSIVE HISTORY & PHYSICAL EXAM HPI The patient is admitted in [facility] for change in mental status mild dysuria and shortness of breath. Patient was evaluated in [facility] ER, patient had multiple WBCs in the urine and the rest of the pulmonary findings were normal PAST HIST. Hypertension, COPD, renal stones with mild renal insufficiency, dementia, and frequent UTIs. PERSONAL HIST: Smoking. N Alcohol. N Allergy N Travel_- . FAMILY HIST : ROS : Patient could not be evaluated for review of system because patient has a language barrier and also has confusion and disorientation. P/E: Constitutional: Appears stated age and in no apparent distress. Head: Normocephalic. Ears: External ear canals patent without inflammation. Tympanic membranes intact with normal light reflex and landmark. Eyes: Pupils are central, bilaterally equal, symmetrical and reacts to light with normal movements and no icterus or pallor. Nose: External nares are patent. Mucosa is pink Mouth-Throat: Good general appearance and condition. No post-pharyngeal/oropharyngeal erythema and tonsillar hypertrophy. Good dental hygiene. Neck-Lymphatic: Neck is supple with normal ROM, no thyromegaly, lymph nodes or masses. JVD is normal with no carotid bruit. Lungs: Clear to percussion and auscultation with bilateral normal air entry. Cardiovascular: S1 and S2 are normal with no murmurs, gallops and rub. GI Exam: No hepatomegaly. Abdomen is soft and non-tender. No Organomegaly , masses or hernias are evident and bowel sounds are normal and active. Neurology: Higher function and all cranial nerves intact, with no gross motor or sensory deficit. Superficial and deep reflexes are normal with downwards planters. No cerebellar deficit with normal gait. Musculoskeletal: No tender spots with normal curvature of the spine with no swelling or restricted ROM of the small and large joints. Extremities: Homans sign absent. Intact pulses with no pitting edema, calf tenderness or skin color changes. Skin: No rash, eruptions or abnormal skin pigmentation LAB/RADIOLOGY: ASSESMENT : Urinary tract infection. COPD with exacerbation. Previous history of renal stones with ureteral stent. Plan. IV antibiotics and bronchodilators. Present on Admission - Present on Admission Any Indicators Present on Admission: No Past Patient History - Infectious Disease Hx of Infectious Diseases: None - Past Medical History & Family History Past Medical History?: Yes - Past Social History Smoking Status: Never Smoked - CARDIAC Hx Hypercholesterolemia: Yes Hx Hypertension: Yes - PULMONARY Hx Respiratory Disorders: No - NEUROLOGICAL Hx Alzheimer's Disease: Yes Hx Dementia: Yes - HEENT Hx HEENT Problems: Yes Other/Comment: glasses for reading - RENAL Hx Chronic Kidney Disease: Yes Hx Kidney Stones: Yes - ENDOCRINE/METABOLIC Hx Diabetes Mellitus Type 2: Yes - HEMATOLOGICAL/ONCOLOGICAL Hx Blood Disorders: No - INTEGUMENTARY Hx Dermatological Problems: No - MUSCULOSKELETAL/RHEUMATOLOGICAL Hx Arthritis: Yes (KNEES; L SHOULDER) Hx Osteoporosis: Yes - GASTROINTESTINAL Hx Gastrointestinal Disorders: No - GENITOURINARY/GYNECOLOGICAL Hx Genitourinary Disorders: No - PSYCHIATRIC Hx Substance Use: No - SURGICAL HISTORY Hx Cholecystectomy: Yes - ANESTHESIA Hx Anesthesia: Yes Hx Anesthesia Reactions: No Hx Malignant Hyperthermia: No Meds Allergies/Adverse Reactions: Allergies Allergy/AdvReac Type Severity Reaction Status Date / Time No Known Allergies Allergy Verified 06/12/17 16:05 Results - Vital Signs Recent Vital Signs: Last Vital Signs Temp 98 F 06/12/17 22:56 Pulse 68 06/12/17 22:56 Resp 18 06/12/17 22:56 BP 152/82 H 06/12/17 22:56 Pulse Ox 97 06/12/17 22:56 - Labs Result Diagrams: 06/12/17 17:04 06/12/17 17:04 Labs: Laboratory Results - last 24 hr 06/12/17 21:31 POC Glucose (mg/dL) 177 H
[2017-06-13] MEDS: Aztreonam 1 GM in Sodium Chloride 0.9% 100 ML IVPB SCH ×5 (00:30→23:46)
[2017-06-13] MEDS: (Novolog) Insulin Aspart, Recombinant 100 u/ml 10 ml vial SC SCH ×4 (08:23→22:15)
[2017-06-13] MEDS: GlipiZIDE 2.5 mg SR Tab PO SCH ×2 (08:41→16:27)
[2017-06-13] MEDS: Pantoprazole 40 mg EC Tab PO SCH (09:33)
--- NOTE | 2017-06-13 10:21 | RAD ---
PROCEDURE: Right Knee Radiographs. HISTORY: COMPARISON: None available FINDINGS: BONES: Osseous demineralization limits evaluation for acute fracture lines. Extensive degenerative changes including tenting of the intercondylar notch. No acute displaced fracture. Suprapatellar enthesophyte. JOINTS: Tricompartmental joint space narrowing. No dislocation. JOINT EFFUSION: No significant joint effusion. OTHER FINDINGS: None. IMPRESSION: Extensive degenerative changes as above. If high clinical index of suspicion persists for occult fracture, suggest MRI for further evaluation due to extensive demineralization.
[2017-06-13] MEDS ORDERED: Potassium Chloride 20 mEq/15 ml LIQ UD PO ONE (12:00)
--- NOTE | 2017-06-13 14:16 | CP.PCM.PN ---
Subjective - Date & Time of Evaluation Date of Evaluation: 06/13/17 Time of Evaluation: 14:14 - Subjective Subjective: GRAM NEG RODS IN URINE ALERT AWAKE AND IN NO DISTRESS V.S As noted in the chart Head ,ear nose,throat and eyes : Normal. Neck : Supple with normal carotids. Lungs: RONCHI . Heart : S1 & S2 normal with S4. No murmur. Abd : Soft non tender with normal bowel sounds. Neuro : Moves all ext. with no localized deficit. Ext : No edema with intact pulses.Non tender calves Derm : No rashes or decubitus ulcer. LABS/RADIOLOGY: ASSESSMENT/PLAN : IV AB FOR UTI Objective - Vital Signs/Intake and Output Vital Signs (last 24 hours): Temp Pulse Resp BP Pulse Ox 97.8 F 60 20 138/75 97 06/13/17 07:53 06/13/17 07:53 06/13/17 07:53 06/13/17 09:32 06/13/17 07:53 Intake and Output: 06/13/17 06/13/17 11:59 23:59 Intake Total 220 Output Total 350 Balance -130 - Medications Medications: Current Medications Enalapril Maleate (Vasotec) 5 mg PO DAILY [facility] Last Admin: 06/13/17 09:32 Dose: 5 mg Glipizide (Glucotrol Xl) 2.5 mg PO ACBD [facility] Last Admin: 06/13/17 08:41 Dose: 2.5 mg Heparin Sodium (Porcine) (Heparin) 5,000 units SC Q12 [facility] Last Admin: 06/13/17 09:33 Dose: 5,000 units Aztreonam 1 gm/ Sodium (Chloride) 100 mls @ 100 mls/hr IVPB Q8H [facility] Last Admin: 06/13/17 09:30 Dose: 100 mls/hr Insulin Aspart (Novolog) 0 unit SC ACHS [facility] PRN Reason: Protocol Last Admin: 06/13/17 12:39 Dose: 4 unit Memantine (Namenda) 5 mg PO DAILY [facility] Last Admin: 06/13/17 10:58 Dose: 5 mg Metformin HCl (Glucophage) 500 mg PO BID [facility] Last Admin: 06/13/17 09:32 Dose: 500 mg Pantoprazole Sodium (Protonix Ec Tab) 40 mg PO DAILY [facility] Last Admin: 06/13/17 09:33 Dose: 40 mg
--- NOTE | 2017-06-13 14:40 | CARD ---
APPROVED REPORT EKG Measurement Heart [id number] [place] [id number] [id number] <Conclusion> Normal sinus rhythm Normal ECG
--- NOTE | 2017-06-13 18:11 | CP.PCM.PN ---
Subjective - Date & Time of Evaluation Date of Evaluation: 06/13/17 Time of Evaluation: 18:11 - Subjective Subjective: CHIEF COMPLAINTS TODAY : afebrile, confused Awake c/o left lower quadrant pain. No shortness of breath or chest pain. ROS. HEENT : N. Resp : No SOB wheezing, cough Cardio : No CP, PND orthopnea GI : +ve LT FLANK abd. 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 Musculoskel : N Ext. : Pedal pulses intact, no edema or calf pain Derm : N Psych : N. PE. Pt. is alert awake in no distress. V.S As noted in the chart Head ,ear nose,throat and eyes : Normal. Neck : Supple with normal carotids. Lungs: DIMINISHED BREATH SOUNDS. Heart : S1 & S2 normal . . No murmur. S4 + Abd : Soft MILD TENDERNESS LEFT LOWER QUADRANT AND SUPRAPUBIC with normal bowel sounds. Neuro : Moves all ext. with no localized deficit. Ext : No edema with intact pulses. Neg. calf tenderness Derm : No rashes or decubitus ulcer. Radiology/Labs .. URINE CULTURE +VE GRAM-NEGATIVE RODS. X-RAY RIGHT KNEE EXTENSIVE DEGENERATIVE CHANGES. CHEST [id number] CHANGES Objective - Vital Signs/Intake and Output Vital Signs (last 24 hours): Temp Pulse Resp BP Pulse Ox 98.3 F 67 20 119/65 98 06/13/17 15:00 06/13/17 15:00 06/13/17 15:00 06/13/17 15:00 06/13/17 15:00 Intake and Output: 06/13/17 06/13/17 06:59 18:59 Intake Total 560 Output Total 350 Balance 210 - Medications Medications: Current Medications Enalapril Maleate (Vasotec) 5 mg PO DAILY [facility] Last Admin: 06/13/17 09:32 Dose: 5 mg Glipizide (Glucotrol Xl) 2.5 mg PO ACBD [facility] Last Admin: 06/13/17 16:27 Dose: 2.5 mg Heparin Sodium (Porcine) (Heparin) 5,000 units SC Q12 [facility] Last Admin: 06/13/17 09:33 Dose: 5,000 units Aztreonam 1 gm/ Sodium (Chloride) 100 mls @ 100 mls/hr IVPB Q8H [facility] Last Admin: 06/13/17 16:27 Dose: 100 mls/hr Insulin Aspart (Novolog) 0 unit SC ACHS [facility] PRN Reason: Protocol Last Admin: 06/13/17 16:28 Dose: 4 unit Memantine (Namenda) 5 mg PO DAILY [facility] Last Admin: 06/13/17 10:58 Dose: 5 mg Metformin HCl (Glucophage) 500 mg PO BIDBS [facility] Last Admin: 06/13/17 16:27 Dose: 500 mg Pantoprazole Sodium (Protonix Ec Tab) 40 mg PO DAILY [facility] Last Admin: 06/13/17 09:33 Dose: 40 mg Assessment and Plan (1) Sepsis Assessment & Plan: blood cultures -pending. Patient on IV Azactam 1 g every 8 hourly Follow-up cultures to adjust antibiotics Status: Acute (2) UTI (urinary tract infection) Assessment & Plan: urine culture positive for gram-negative rods. continue IV Azactam 1 g every 8 hourly.. 06/12/17. Status: Acute (3) Ureteral calculus, left Status: Acute (4) COPD exacerbation Status: Acute (5) Dementia Status: Acute
[2017-06-14] MEDS: Pantoprazole 40 mg EC Tab PO SCH (10:40)
[2017-06-14] MEDS: (Novolog) Insulin Aspart, Recombinant 100 u/ml 10 ml vial SC SCH ×4 (10:40→22:24)
[2017-06-14] MEDS: GlipiZIDE 2.5 mg SR Tab PO SCH ×2 (10:40→17:08)
[2017-06-14] MEDS: Aztreonam 1 GM in Sodium Chloride 0.9% 100 ML IVPB SCH ×2 (10:48→17:08)
--- NOTE | 2017-06-14 13:10 | CP.PCM.PN ---
Subjective - Date & Time of Evaluation Date of Evaluation: 06/14/17 Time of Evaluation: 13:10 - Subjective Subjective: GRAM NEG RODS IN URINE ., E COLI ALERT AWAKE AND IN NO DISTRESS V.S As noted in the chart Head ,ear nose,throat and eyes : Normal. Neck : Supple with normal carotids. Lungs: RONCHI . Heart : S1 & S2 normal with S4. No murmur. Abd : Soft non tender with normal bowel sounds. Neuro : Moves all ext. with no localized deficit. Ext : No edema with intact pulses.Non tender calves Derm : No rashes or decubitus ulcer. LABS/RADIOLOGY: ASSESSMENT/PLAN : IV AB FOR UTI Objective - Vital Signs/Intake and Output Vital Signs (last 24 hours): Temp Pulse Resp BP Pulse Ox 97.9 F 66 20 175/74 H 97 06/14/17 08:00 06/14/17 08:00 06/14/17 08:00 06/14/17 10:41 06/14/17 08:00 Intake and Output: 06/14/17 06/14/17 11:59 23:59 Intake Total 220 Balance 220 - Medications Medications: Current Medications Enalapril Maleate (Vasotec) 5 mg PO DAILY [facility] Last Admin: 06/14/17 10:41 Dose: 5 mg Glipizide (Glucotrol Xl) 2.5 mg PO ACBD [facility] Last Admin: 06/14/17 10:40 Dose: 2.5 mg Heparin Sodium (Porcine) (Heparin) 5,000 units SC Q12 [facility] Last Admin: 06/14/17 10:40 Dose: 5,000 units Aztreonam 1 gm/ Sodium (Chloride) 100 mls @ 100 mls/hr IVPB Q8H [facility] Last Admin: 06/14/17 10:48 Dose: 100 mls/hr Insulin Aspart (Novolog) 0 unit SC ACHS [facility] PRN Reason: Protocol Last Admin: 06/14/17 10:40 Dose: Not Given Memantine (Namenda) 5 mg PO DAILY [facility] Last Admin: 06/14/17 10:40 Dose: 5 mg Metformin HCl (Glucophage) 500 mg PO BIDBS [facility] Last Admin: 06/14/17 10:40 Dose: 500 mg Pantoprazole Sodium (Protonix Ec Tab) 40 mg PO DAILY [facility] Last Admin: 06/14/17 10:40 Dose: 40 mg
--- NOTE | 2017-06-14 14:10 | CP.PCM.PN ---
Subjective - Date & Time of Evaluation Date of Evaluation: 06/14/17 Time of Evaluation: 14:10 - Subjective Subjective: CHIEF COMPLAINTS TODAY : afebrile, confused Awake No shortness of breath or chest pain. ROS. HEENT : N. Resp : No SOB wheezing, cough Cardio : No CP, PND orthopnea GI : +ve LT FLANK abd. Pain, NO n/v SEWER HEAD : No headache , focal deficit. Musculoskel : N Ext. : Pedal pulses intact, no edema or calf pain Derm : N Psych : N. PE. Pt. is alert awake in no distress. V.S As noted in the chart Head ,ear nose,throat and eyes : Normal. Neck : Supple with normal carotids. Lungs: DIMINISHED BREATH SOUNDS. Heart : S1 & S2 normal . . No murmur. S4 + Abd : Soft MILD TENDERNESS LEFT LOWER QUADRANT AND SUPRAPUBIC with normal bowel sounds. Neuro : Moves all ext. with no localized deficit. Ext : No edema with intact pulses. Neg. calf tenderness Derm : No rashes or decubitus ulcer. Radiology/Labs .. URINE CULTURE +VE ESCHERICHIA COLI- PANSENSITIVE X-RAY RIGHT KNEE EXTENSIVE DEGENERATIVE CHANGES. CHEST [id number] CHANGES Objective - Vital Signs/Intake and Output Vital Signs (last 24 hours): Temp Pulse Resp BP Pulse Ox 97.9 F 66 20 175/74 H 97 06/14/17 08:00 06/14/17 08:00 06/14/17 08:00 06/14/17 10:41 06/14/17 08:00 Intake and Output: 06/14/17 06/14/17 06:59 18:59 Intake Total 670 Balance 670 - Medications Medications: Current Medications Enalapril Maleate (Vasotec) 5 mg PO DAILY [facility] Last Admin: 06/14/17 10:41 Dose: 5 mg Glipizide (Glucotrol Xl) 2.5 mg PO ACBD [facility] Last Admin: 06/14/17 10:40 Dose: 2.5 mg Heparin Sodium (Porcine) (Heparin) 5,000 units SC Q12 [facility] Last Admin: 06/14/17 10:40 Dose: 5,000 units Aztreonam 1 gm/ Sodium (Chloride) 100 mls @ 100 mls/hr IVPB Q8H [facility] Last Admin: 06/14/17 10:48 Dose: 100 mls/hr Insulin Aspart (Novolog) 0 unit SC ACHS [facility] PRN Reason: Protocol Last Admin: 06/14/17 13:41 Dose: Not Given Memantine (Namenda) 5 mg PO DAILY [facility] Last Admin: 06/14/17 10:40 Dose: 5 mg Metformin HCl (Glucophage) 500 mg PO BIDBS [facility] Last Admin: 06/14/17 10:40 Dose: 500 mg Pantoprazole Sodium (Protonix Ec Tab) 40 mg PO DAILY [facility] Last Admin: 06/14/17 10:40 Dose: 40 mg Assessment and Plan (1) Sepsis Assessment & Plan: BLOOD CULTURES NEGATIVE TO DATE Status: Acute (2) UTI (urinary tract infection) Assessment & Plan: URINE CULTURES +VE ESCHERICHIA COLI PANSENSITIVE CONTINUE iv AZACTAM 1 G EVERY 8 HOURLY -DAY 3. F/U CLEAN CATCH ua URINE CULTURE IN A.M. Status: Acute (3) Ureteral calculus, left Assessment & Plan: ASYMPTOMATIC NONOBSTRUCTIVE URETERAL CALCULI. Status: Acute (4) COPD exacerbation Status: Acute (5) Dementia Status: Acute
[2017-06-15] MEDS: Aztreonam 1 GM in Sodium Chloride 0.9% 100 ML IVPB SCH ×3 (00:30→17:20)
[2017-06-15] MEDS: (Novolog) Insulin Aspart, Recombinant 100 u/ml 10 ml vial SC SCH ×4 (07:51→22:08)
[2017-06-15] MEDS: GlipiZIDE 2.5 mg SR Tab PO SCH ×2 (08:13→17:20)
[2017-06-15 08:25] VITALS: RESP 20
[2017-06-15 08:28] LABS: URINE BACTERIA OCC (<OCC); URINE BILIRUBIN NEGATIVE (NEGATIVE); URINE BLOOD NEGATIVE (NEGATIVE); URINE COLOR Yellow (YELLOW); URINE GLUCOSE (UA) NORMAL (Normal); URINE KETONE NEGATIVE (NEGATIVE); URINE LEUKOCYTE ESTERASE 2+ Leu/uL (Negative); URINE PROTEIN NEGATIVE (NEGATIVE); URINE UROBILINOGEN NORMAL mg/dL (0.2-1.0); WBC URINE 10 /hpf (0-5)
[2017-06-15] MEDS: Pantoprazole 40 mg EC Tab PO SCH (09:14)
--- NOTE | 2017-06-15 13:33 | CP.PCM.PN ---
Subjective - Date & Time of Evaluation Date of Evaluation: 06/15/17 Time of Evaluation: 13:33 - Subjective Subjective: GRAM NEG RODS IN URINE ., E COLI ALERT AWAKE AND IN NO DISTRESS V.S As noted in the chart Head ,ear nose,throat and eyes : Normal. Neck : Supple with normal carotids. Lungs: RONCHI . Heart : S1 & S2 normal with S4. No murmur. Abd : Soft non tender with normal bowel sounds. Neuro : Moves all ext. with no localized deficit. Ext : No edema with intact pulses.Non tender calves Derm : No rashes or decubitus ulcer. LABS/RADIOLOGY: ASSESSMENT/PLAN : IV AB FOR UTI Objective - Vital Signs/Intake and Output Vital Signs (last 24 hours): Temp Pulse Resp BP Pulse Ox 98.0 F 62 20 158/86 H 96 06/15/17 08:24 06/15/17 08:24 06/15/17 08:24 06/15/17 09:14 06/15/17 08:24 Intake and Output: 06/15/17 06/15/17 11:59 23:59 Intake Total 220 Balance 220 - Medications Medications: Current Medications Enalapril Maleate (Vasotec) 5 mg PO DAILY [facility] Last Admin: 06/15/17 09:14 Dose: 5 mg Glipizide (Glucotrol Xl) 2.5 mg PO ACBD [facility] Last Admin: 06/15/17 08:13 Dose: 2.5 mg Heparin Sodium (Porcine) (Heparin) 5,000 units SC Q12 [facility] Last Admin: 06/15/17 09:14 Dose: 5,000 units Aztreonam 1 gm/ Sodium (Chloride) 100 mls @ 100 mls/hr IVPB Q8H [facility] Last Admin: 06/15/17 09:13 Dose: 100 mls/hr Insulin Aspart (Novolog) 0 unit SC ACHS [facility] PRN Reason: Protocol Last Admin: 06/15/17 11:45 Dose: Not Given Memantine (Namenda) 5 mg PO DAILY [facility] Last Admin: 06/15/17 09:14 Dose: 5 mg Metformin HCl (Glucophage) 500 mg PO BIDBS [facility] Last Admin: 06/15/17 08:13 Dose: 500 mg Pantoprazole Sodium (Protonix Ec Tab) 40 mg PO DAILY [facility] Last Admin: 06/15/17 09:14 Dose: 40 mg
--- NOTE | 2017-06-15 22:15 | CP.PCM.PN ---
Subjective - Date & Time of Evaluation Date of Evaluation: 06/15/17 Time of Evaluation: 22:15 - Subjective Subjective: CHIEF COMPLAINTS TODAY : afebrile, confused Awake No shortness of breath or chest pain. ROS. HEENT : N. Resp : No SOB wheezing, cough Cardio : No CP, PND orthopnea GI : +ve LT FLANK abd. 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 Musculoskel : N Ext. : Pedal pulses intact, no edema or calf pain Derm : N Psych : N. PE. Pt. is alert awake in no distress. V.S As noted in the chart Head ,ear nose,throat and eyes : Normal. Neck : Supple with normal carotids. Lungs: DIMINISHED BREATH SOUNDS. Heart : S1 & S2 normal . . No murmur. S4 + Abd : Soft MILD TENDERNESS LEFT LOWER QUADRANT AND SUPRAPUBIC with normal bowel sounds. Neuro : Moves all ext. with no localized deficit. Ext : No edema with intact pulses. Neg. calf tenderness Derm : No rashes or decubitus ulcer. Radiology/Labs .. URINE CULTURE +VE ESCHERICHIA COLI- PANSENSITIVE X-RAY RIGHT KNEE EXTENSIVE DEGENERATIVE CHANGES. CHEST [id number] CHANGES Objective - Vital Signs/Intake and Output Vital Signs (last 24 hours): Temp Pulse Resp BP Pulse Ox 99 F 68 20 148/60 97 06/15/17 16:00 06/15/17 16:00 06/15/17 16:00 06/15/17 16:00 06/15/17 16:00 Intake and Output: 06/15/17 06/16/17 18:59 06:59 Intake Total 400 Balance 400 - Medications Medications: Current Medications Enalapril Maleate (Vasotec) 5 mg PO DAILY [facility] Last Admin: 06/15/17 09:14 Dose: 5 mg Glipizide (Glucotrol Xl) 2.5 mg PO ACBD [facility] Last Admin: 06/15/17 17:20 Dose: 2.5 mg Heparin Sodium (Porcine) (Heparin) 5,000 units SC Q12 [facility] Last Admin: 06/15/17 09:14 Dose: 5,000 units Aztreonam 1 gm/ Sodium (Chloride) 100 mls @ 100 mls/hr IVPB Q8H [facility] Last Admin: 06/15/17 17:20 Dose: 100 mls/hr Insulin Aspart (Novolog) 0 unit SC ACHS [facility] PRN Reason: Protocol Last Admin: 06/15/17 22:08 Dose: Not Given Memantine (Namenda) 5 mg PO DAILY [facility] Last Admin: 06/15/17 09:14 Dose: 5 mg Metformin HCl (Glucophage) 500 mg PO BIDBS [facility] Last Admin: 06/15/17 17:20 Dose: 500 mg Pantoprazole Sodium (Protonix Ec Tab) 40 mg PO DAILY [facility] Last Admin: 06/15/17 09:14 Dose: 40 mg Assessment and Plan (1) Sepsis Assessment & Plan: BLOOD CULTURES 2;2 SETS NEGATIVE TO DATE. cONTINUE iv ANTIBIOTICS Status: Acute (2) UTI (urinary tract infection) Assessment & Plan: URINE CULTURE +VE ECOLI -PANSENSITIVE. ON IV AZACTAM 1GM IV Q 8HRLY -DAY 4 F/U REPEAT U/A AND URINE CULTURE Status: Acute (3) Ureteral calculus, left Assessment & Plan: ASYMPTOMATIC NONOBSTRUCTIVE URETERAL CALCULI Status: Acute (4) COPD exacerbation Status: Acute (5) Dementia Status: Acute
[2017-06-16] MEDS: Aztreonam 1 GM in Sodium Chloride 0.9% 100 ML IVPB SCH ×4 (00:12→23:39)
[2017-06-16] MEDS: (Novolog) Insulin Aspart, Recombinant 100 u/ml 10 ml vial SC SCH ×4 (08:18→22:10)
[2017-06-16] MEDS: GlipiZIDE 2.5 mg SR Tab PO SCH ×2 (08:30→17:10)
[2017-06-16] MEDS: Pantoprazole 40 mg EC Tab PO SCH (10:19)
--- NOTE | 2017-06-16 14:41 | CP.PCM.PN ---
Subjective - Date & Time of Evaluation Date of Evaluation: 06/16/17 Time of Evaluation: 14:41 - Subjective Subjective: GRAM NEG RODS IN URINE ., E COLI ALERT AWAKE AND IN NO DISTRESS V.S As noted in the chart Head ,ear nose,throat and eyes : Normal. Neck : Supple with normal carotids. Lungs: RONCHI . Heart : S1 & S2 normal with S4. No murmur. Abd : Soft non tender with normal bowel sounds. Neuro : Moves all ext. with no localized deficit. Ext : No edema with intact pulses.Non tender calves Derm : No rashes or decubitus ulcer. LABS/RADIOLOGY: ASSESSMENT/PLAN : IV AB FOR UTI Objective - Vital Signs/Intake and Output Vital Signs (last 24 hours): Temp Pulse Resp BP Pulse Ox 98.1 F 72 20 164/80 H 96 06/16/17 08:26 06/16/17 08:26 06/16/17 08:26 06/16/17 10:19 06/16/17 08:26 - Medications Medications: Current Medications Enalapril Maleate (Vasotec) 5 mg PO DAILY [facility] Last Admin: 06/16/17 10:19 Dose: 5 mg Glipizide (Glucotrol Xl) 2.5 mg PO ACBD [facility] Last Admin: 06/16/17 08:30 Dose: 2.5 mg Aztreonam 1 gm/ Sodium (Chloride) 100 mls @ 100 mls/hr IVPB Q8H [facility] Last Admin: 06/16/17 08:49 Dose: 100 mls/hr Insulin Aspart (Novolog) 0 unit SC ACHS [facility] PRN Reason: Protocol Last Admin: 06/16/17 11:58 Dose: 3 unit Memantine (Namenda) 5 mg PO DAILY [facility] Last Admin: 06/16/17 10:19 Dose: 5 mg Metformin HCl (Glucophage) 500 mg PO BIDBS [facility] Last Admin: 06/16/17 08:30 Dose: 500 mg Pantoprazole Sodium (Protonix Ec Tab) 40 mg PO DAILY [facility] Last Admin: 06/16/17 10:19 Dose: 40 mg
--- NOTE | 2017-06-16 22:01 | CP.PCM.PN ---
Subjective - Date & Time of Evaluation Date of Evaluation: 06/16/17 Time of Evaluation: 22:00 - Subjective Subjective: CHIEF COMPLAINTS TODAY : afebrile, confused Awake No COMPLAINTS ROS. HEENT : N. Resp : No SOB wheezing, cough Cardio : No CP, PND orthopnea GI : +ve LT FLANK abd. 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 Musculoskel : N Ext. : Pedal pulses intact, no edema or calf pain Derm : N Psych : N. PE. Pt. is alert awake in no distress. V.S As noted in the chart Head ,ear nose,throat and eyes : Normal. Neck : Supple with normal carotids. Lungs: DIMINISHED BREATH SOUNDS. Heart : S1 & S2 normal . . No murmur. S4 + Abd : Soft MILD TENDERNESS LEFT LOWER QUADRANT AND SUPRAPUBIC with normal bowel sounds. Neuro : Moves all ext. with no localized deficit. Ext : No edema with intact pulses. Neg. calf tenderness Derm : No rashes or decubitus ulcer. Radiology/Labs .. URINE CULTURE +VE ESCHERICHIA COLI- PANSENSITIVE X-RAY RIGHT KNEE EXTENSIVE DEGENERATIVE CHANGES. CHEST [id number] CHANGES Objective - Vital Signs/Intake and Output Vital Signs (last 24 hours): Temp Pulse Resp BP Pulse Ox 98.2 F 74 20 138/62 97 06/16/17 15:10 06/16/17 15:10 06/16/17 15:10 06/16/17 15:10 06/16/17 15:10 Intake and Output: 06/16/17 06/17/17 18:59 06:59 Intake Total 400 Balance 400 - Medications Medications: Current Medications Enalapril Maleate (Vasotec) 5 mg PO DAILY [facility] Last Admin: 06/16/17 10:19 Dose: 5 mg Glipizide (Glucotrol Xl) 2.5 mg PO ACBD [facility] Last Admin: 06/16/17 17:10 Dose: 2.5 mg Aztreonam 1 gm/ Sodium (Chloride) 100 mls @ 100 mls/hr IVPB Q8H [facility] Last Admin: 06/16/17 17:10 Dose: 100 mls/hr Insulin Aspart (Novolog) 0 unit SC ACHS [facility] PRN Reason: Protocol Last Admin: 06/16/17 17:10 Dose: 3 unit Memantine (Namenda) 5 mg PO DAILY [facility] Last Admin: 06/16/17 10:19 Dose: 5 mg Metformin HCl (Glucophage) 500 mg PO BIDBS [facility] Last Admin: 06/16/17 17:10 Dose: 500 mg Pantoprazole Sodium (Protonix Ec Tab) 40 mg PO DAILY [facility] Last Admin: 06/16/17 10:19 Dose: 40 mg Assessment and Plan (1) Sepsis Assessment & Plan: BLOOD CULTURES 2;2 SETS NEGATIVE TO DATE. cONTINUE iv ANTIBIOTIC Status: Acute (2) UTI (urinary tract infection) Assessment & Plan: URINE CULTURE +VE ECOLI -PANSENSITIVE. ON IV AZACTAM 1GM IV Q 8HRLY -DAY 5 F/U REPEAT U/A AND URINE CULTUR Status: Acute (3) Ureteral calculus, left Assessment & Plan: NON -OBSTRUCTIVE. PER . Status: Acute (4) COPD exacerbation Assessment & Plan: PULMONARY TOILET. Status: Acute (5) Dementia Status: Acute
[2017-06-17 08:18] VITALS: O2SAT 96
[2017-06-17] MEDS: (Novolog) Insulin Aspart, Recombinant 100 u/ml 10 ml vial SC SCH ×3 (08:30→17:10)
[2017-06-17] MEDS: GlipiZIDE 2.5 mg SR Tab PO SCH ×2 (08:49→17:10)
[2017-06-17] MEDS: Aztreonam 1 GM in Sodium Chloride 0.9% 100 ML IVPB SCH ×2 (08:54→17:10)
[2017-06-17] MEDS: Pantoprazole 40 mg EC Tab PO SCH (09:48)
--- NOTE | 2017-06-17 12:12 | CP.PCM.PN ---
Subjective - Date & Time of Evaluation Date of Evaluation: 06/17/17 Time of Evaluation: 12:12 - Subjective Subjective: CHIEF COMPLAINTS TODAY : afebrile, confused Awake No COMPLAINTS ROS. HEENT : N. Resp : No SOB wheezing, cough Cardio : No CP, PND orthopnea GI : DENIES abd. Pain, NO n/v [employer] : No headache , focal deficit. Musculoskel : N Ext. : Pedal pulses intact, no edema or calf pain Derm : N Psych : N. PE. Pt. is alert awake in no distress. V.S As noted in the chart Head ,ear nose,throat and eyes : Normal. Neck : Supple with normal carotids. Lungs: DIMINISHED BREATH SOUNDS. Heart : S1 & S2 normal . . No murmur. S4 + Abd : Soft with normal bowel sounds. Neuro : Moves all ext. with no localized deficit. Ext : No edema with intact pulses. Neg. calf tenderness Derm : No rashes or decubitus ulcer. Radiology/Labs .. URINE CULTURE +VE ESCHERICHIA COLI- PANSENSITIVE X-RAY RIGHT KNEE EXTENSIVE DEGENERATIVE CHANGES. CHEST [id number] CHANGES Objective - Vital Signs/Intake and Output Vital Signs (last 24 hours): Temp Pulse Resp BP Pulse Ox 97.9 F 67 20 158/74 H 96 06/17/17 08:00 06/17/17 08:00 06/17/17 08:00 06/17/17 09:48 06/17/17 08:00 Intake and Output: 06/17/17 06/17/17 06:59 18:59 Intake Total 690 Balance 690 - Medications Medications: Current Medications Enalapril Maleate (Vasotec) 5 mg PO DAILY [facility] Last Admin: 06/17/17 09:48 Dose: 5 mg Glipizide (Glucotrol Xl) 2.5 mg PO ACBD [facility] Last Admin: 06/17/17 08:49 Dose: Not Given Aztreonam 1 gm/ Sodium (Chloride) 100 mls @ 100 mls/hr IVPB Q8H [facility] Last Admin: 06/17/17 08:54 Dose: 100 mls/hr Insulin Aspart (Novolog) 0 unit SC ACHS MARYELLEN PRN Reason: Protocol Last Admin: 06/17/17 08:30 Dose: Not Given Memantine (Namenda) 5 mg PO DAILY [facility] Last Admin: 06/17/17 09:48 Dose: 5 mg Metformin HCl (Glucophage) 500 mg PO BIDBS [facility] Last Admin: 06/17/17 08:48 Dose: Not Given Pantoprazole Sodium (Protonix Ec Tab) 40 mg PO DAILY [facility] Last Admin: 06/17/17 09:48 Dose: 40 mg Assessment and Plan (1) Sepsis Assessment & Plan: BLOOD CULTURES NEGATIVE TO DATE. Status: Acute (2) UTI (urinary tract infection) Assessment & Plan: PATIENT HAS URINE CULTURE POSITIVE FOR ESCHERICHIA COLI -PANSENSITIVE. DC iv AZACTAM . CIPRO 500 TWICE A DAY FOR 5 DAYS. PATIENT TO FOLLOW-UP OUTPATIENT WITH PMD. Status: Acute (3) Ureteral calculus, left Assessment & Plan: PATIENT HAS A NON-OBSTRUCTIVE RENAL CALCULI. pATIENT ASYMPTOMATIC. PRESENTLY ON ANTIBIOTICS FOR UTI. Status: Acute (4) COPD exacerbation Status: Acute (5) Dementia Status: Acute
--- NOTE | 2017-06-17 12:57 | CP.PCM.DIS ---
Provider - Provider Date of Admission: 06/12/17 20:14 Attending physician: Jama Salmon MD Time Spent in preparation of Discharge (in minutes): 30 Hospital Course - Lab Results Lab Results: Micro Results 06/12/17 20:45 Blood-Venous Blood Culture - Preliminary NO GROWTH AFTER 4 DAYS 06/12/17 20:15 Blood-Venous Blood Culture - Preliminary NO GROWTH AFTER 4 DAYS 06/12/17 20:16 Urine,Catheterized Urine Culture - Final Escherichia Coli Most Recent Lab Values WBC 7.8 K/uL (4.8-10.8) 06/12/17 17:04 RBC 3.72 Mil/uL (3.80-5.20) L 06/12/17 17:04 Hgb 11.3 g/dL (11.0-16.0) 06/12/17 17:04 Hct 32.4 % (34.0-47.0) L 06/12/17 17:04 MCV 87.1 fL (81.0-99.0) 06/12/17 17:04 MCH 30.3 pg (27.0-31.0) 06/12/17 17:04 MCHC 34.8 g/dL (33.0-37.0) 06/12/17 17:04 RDW 13.5 % (11.5-14.5) 06/12/17 17:04 Plt Count 323 K/uL (130-400) D 06/12/17 17:04 MPV 7.0 fL (7.2-11.7) L 06/12/17 17:04 Neut % (Auto) 71.3 % (50.0-75.0) 06/12/17 17:04 Lymph % (Auto) 21.0 % (20.0-40.0) 06/12/17 17:04 Mccone % (Auto) 5.2 % (0.0-10.0) 06/12/17 17:04 Eos % (Auto) 1.7 % (0.0-4.0) 06/12/17 17:04 Baso % (Auto) 0.8 % (0.0-2.0) 06/12/17 17:04 Neut # 5.6 K/uL (1.8-7.0) 06/12/17 17:04 Lymph # 1.6 K/uL (1.0-4.3) 06/12/17 17:04 Mccone # 0.4 K/uL (0.0-0.8) 06/12/17 17:04 Eos # 0.1 K/uL (0.0-0.7) 06/12/17 17:04 Baso # 0.1 K/uL (0.0-0.2) 06/12/17 17:04 Sodium 139 mmol/L (132-148) 06/12/17 17:04 Potassium 3.4 mmol/L (3.6-5.2) L 06/12/17 17:04 Chloride 97 mmol/L (98-107) L 06/12/17 17:04 Carbon Dioxide 25 mmol/L (22-30) 06/12/17 17:04 Anion Gap 20 (10-20) 06/12/17 17:04 BUN 19 mg/dL (7-17) H 06/12/17 17:04 Creatinine 0.6 MG/DL (0.7-1.2) L 06/12/17 17:04 Est GFR ( Amer) > 60 06/12/17 17:04 Est GFR (Non-Af Amer) > 60 06/12/17 17:04 POC Glucose (mg/dL) 133 mg/dL (65-110) H 06/17/17 07:30 Random Glucose 179 mg/dL (65-105) H 06/12/17 17:04 Calcium 9.0 mg/dl (8.6-10.4) 06/12/17 17:04 Troponin I < 0.0120 ng/mL (0.00-0.120) 06/12/17 17:04 NT-Pro-B Natriuret Pep 234 pg/mL (0-900) 06/12/17 17:04 Urine Color Yellow (YELLOW) 06/15/17 08:02 Urine Clarity Turbid (Clear) 06/15/17 08:02 Urine pH 6.0 (5.0-8.0) 06/15/17 08:02 Ur Specific [place] 1.010 (1.003-1.030) 06/15/17 08:02 Urine Protein Negative mg/dL (NEGATIVE) 06/15/17 08:02 Urine Glucose (UA) Normal mg/dL (Normal) 06/15/17 08:02 Urine Ketones Negative mg/dL (NEGATIVE) 06/15/17 08:02 Urine Blood Negative (NEGATIVE) 06/15/17 08:02 Urine Nitrate Negative (NEGATIVE) 06/15/17 08:02 Urine Bilirubin Negative (NEGATIVE) 06/15/17 08:02 Urine Urobilinogen Normal mg/dL (0.2-1.0) 06/15/17 08:02 Ur Leukocyte Esterase 2+ Bibiana/uL (Negative) H 06/15/17 08:02 Urine WBC (Auto) 10 /hpf (0-5) H 06/15/17 08:02 Urine RBC (Auto) 4 /hpf (0-3) H 06/12/17 19:33 Ur Squamous Epith Cells 205 /hpf (0-5) H 06/15/17 08:02 Urine Bacteria Occ (<OCC) H 06/15/17 08:02 Hyaline Casts 3-5 /lpf (0-2) H 06/12/17 19:33 Urine Yeast (Budding) Many /hpf (NEGATIVE) H 06/15/17 08:02 - Hospital Course Hospital Course: The patient is admitted in [facility] for change in mental status mild dysuria and shortness of breath. Patient was evaluated in [facility] ER, patient had multiple WBCs in the urine and the rest of the pulmonary findings were normal PAST HIST. Hypertension, COPD, renal stones with mild renal insufficiency, dementia, and frequent UTIs. PT HAD E.COLI IN URINE AND RESPONDED WITH IV AB PT IS TRANSFERRED TO [facility] Discharge Exam - Head Exam Head Exam: NORMAL INSPECTION Discharge Plan - Follow Up Plan Condition: STABLE Disposition: HOME/ ROUTINE
[2017-06-17 13:45] LABS: BASO % 0.9 % (0.0-2.0); EOS # 0.2 K/uL (0.0-0.7); EOS % 4.1 % (0.0-4.0); LYMPH # 1.5 K/uL (1.0-4.3); LYMPH % 29.3 % (20.0-40.0); MEAN CELL VOLUME 86.9 fL (81.0-99.0); MEAN CORPUSCULAR HGB CONC 34.6 g/dL (33.0-37.0); MEAN PLATELET VOLUME 6.9 fL (7.2-11.7); MONO # 0.4 K/uL (0.0-0.8); MONO % 7.7 % (0.0-10.0); NRBC % 0.1 % (0.0-2.0); RED CELL DISTRIBUTION WIDTH 13.7 % (11.5-14.5)
[2017-06-17 13:59] LABS: CHLORIDE 99 mmol/L (98-107); SODIUM 140 mmol/L (132-148)
[2017-06-17 14:00] LABS: POTASSIUM 3.9 mmol/L (3.6-5.2)
[2017-06-17 14:02] LABS: ALB/GLOB RATIO 0.9 (1.0-2.1); ALKALINE PHOSPHATASE 158 U/L (38-126); ALT/SGPT 29 U/L (9-52); AST/SGOT 31 U/L (14-36); BILIRUBIN,TOTAL 0.5 mg/dL (0.2-1.3); BLOOD UREA NITROGEN 18 mg/dL (7-17); CARBON DIOXIDE 27 mmol/L (22-30); GFR AFRICAN-AMERICAN > 60; GLUCOSE,RANDOM 119 mg/dL (65-105); TOTAL PROTEIN 7.5 g/dL (6.3-8.3)
[2017-06-17 14:03] LABS: CALCIUM 9.1 mg/dl (8.6-10.4)
[2017-06-17 15:59] VITALS: BP 128/72; PULSE 84; TEMP 98.3
--- NOTE | 2017-06-17 16:54 | CP.PCM.PN ---
Subjective - Date & Time of Evaluation Date of Evaluation: 06/17/17 Time of Evaluation: 16:00 - Subjective Subjective: ON LINE CSR NOTES Pt seen today at bedside, comfortable, denies any chest pain, sob, c/o back pain urine culture- + for . E coli and treated with azactum cbc, bmp- WNL D/w Dr. Jarvis . pat can be discharged home with cipro x [address] Salmon , discussed the discharge plan with patient daughter Objective - Vital Signs/Intake and Output Vital Signs (last 24 hours): Temp Pulse Resp BP Pulse Ox 98.3 F 84 20 128/72 96 06/17/17 15:00 06/17/17 15:00 06/17/17 15:00 06/17/17 15:00 06/17/17 15:00 Intake and Output: 06/17/17 06/17/17 06:59 18:59 Intake Total 690 350 Balance 690 350 - Medications Medications: Current Medications Enalapril Maleate (Vasotec) 5 mg PO DAILY [facility] Last Admin: 06/17/17 09:48 Dose: 5 mg Glipizide (Glucotrol Xl) 2.5 mg PO ACBD [facility] Last Admin: 06/17/17 08:49 Dose: Not Given Aztreonam 1 gm/ Sodium (Chloride) 100 mls @ 100 mls/hr IVPB Q8H [facility] Last Admin: 06/17/17 08:54 Dose: 100 mls/hr Insulin Aspart (Novolog) 0 unit SC ACHS MARYELLEN PRN Reason: Protocol Last Admin: 06/17/17 12:54 Dose: Not Given Memantine (Namenda) 5 mg PO DAILY [facility] Last Admin: 06/17/17 09:48 Dose: 5 mg Metformin HCl (Glucophage) 500 mg PO BIDBS [facility] Last Admin: 06/17/17 08:48 Dose: Not Given Pantoprazole Sodium (Protonix Ec Tab) 40 mg PO DAILY [facility] Last Admin: 06/17/17 09:48 Dose: 40 mg - Labs Labs: 06/17/17 13:27 06/17/17 13:27
== END 2017-06-17 17:45 | disposition home or self-care (01) | DRG 872 ==
LOC: C.ER 15:51 → C.9E 20:14 → C.3T 22:12
PROVIDERS: ADMIT Internal Medicine Cardiovascular Disease; ATTEND Internal Medicine Cardiovascular Disease
DX: A41.9 Sepsis, unspecified organism (principal); J44.1 Chronic obstructive pulmonary disease with (acute) exacerbation; N39.0 Urinary tract infection, site not specified; N20.1 Calculus of ureter; G30.9 Alzheimer's disease, unspecified; G89.29 Other chronic pain; M54.5 Low back pain; R07.89 Other chest pain; I10 Essential (primary) hypertension; F02.80 Dementia in other diseases classified elsewhere, unspecified severity, without behavioral disturbance, psychotic disturbance, mood disturbance, and anxiety; E11.9 Type 2 diabetes mellitus without complications; M81.0 Age-related osteoporosis without current pathological fracture; R29.6 Repeated falls; R65.20 Severe sepsis without septic shock; Z79.4 Long term (current) use of insulin

== ENCOUNTER 2017-07-01 21:54 | Inpatient (IN) | payer MEDICARE ==
--- NOTE | 2017-07-01 22:59 | C.PDOC ---
History Of Present Illness Patient presents to the ER with family after they found her to have become increasingly confused. Patient has a Hx of dementia and is unable to take care of herself. Patient has not verbalized at physical complaints at this time. Time Seen by Provider: 07/01/17 22:59 Chief Complaint (Nursing): Medical Clearance History Per: Family History/Exam Limitations: no limitations Onset/Duration Of Symptoms: Hrs Current Symptoms Are (Timing): Still Present Recent travel outside of the [place]: No Past Medical History Reviewed: Historical Data, Nursing Documentation, Vital Signs Vital Signs: Last Vital Signs Temp 98.2 F 07/01/17 22:10 Pulse 74 07/01/17 22:10 Resp 14 07/01/17 22:10 BP 102/54 L 07/01/17 22:10 Pulse Ox 99 07/01/17 23:43 - Medical History PMH: Alzheimer's Disease, Arthritis (KNEES; L SHOULDER), Dementia, HTN, Hypercholesterolemia, Kidney Stones, Osteoporosis, Chronic Kidney Disease Surgical History: Cholecystectomy - [facility] Procedures DILATION OF LEFT URETER WITH INTRALUMINAL DEVICE, ENDO (12/19/16) EXTIRPATION OF MATTER FROM LEFT KIDNEY, ENDO (12/19/16) REMOVAL OF INTRALUMINAL DEVICE FROM URETER, ENDO (12/19/16) Family History: States: No Known Family Hx - Social History Hx Alcohol Use: No Hx Substance Use: No - Immunization History Hx Tetanus Toxoid Vaccination: Yes Hx Influenza Vaccination: Yes Hx Pneumococcal Vaccination: Yes Review Of Systems Constitutional: Negative for: Fever, Chills Cardiovascular: Negative for: Chest Pain, Palpitations Respiratory: Negative for: Cough, Shortness of Breath Gastrointestinal: Negative for: Nausea, Vomiting, Diarrhea Skin: Negative for: Rash Neurological: Positive for: Confusion Physical Exam - Physical Exam Appears: Non-toxic, No Acute Distress Skin: Warm, Dry Oral Mucosa: Moist Neck: Normal, Supple Chest: Symmetrical, No Tenderness Cardiovascular: Rhythm Regular Respiratory: No Rales, No Rhonchi, No Wheezing Gastrointestinal/Abdominal: Soft, No Tenderness Back: No CVA Tenderness Extremity: No Tenderness Extremity: Bilateral: Atraumatic Neurological/Psych: Oriented x3 ED Course And Treatment - Laboratory Results Result Diagrams: 07/01/17 23:24 07/01/17 23:24 ECG: Interpreted By Me, Viewed By Me ECG Rhythm: Sinus Rhythm (66), Nonspecific Changes O2 Sat by Pulse Oximetry: 99 Pulse Ox Interpretation: Normal - Radiology CXR: Interpreted by Me, Viewed By Me CXR Interpretation: Yes: Other (unchanged from 06/12/17). No: Infiltrates, Fracture, Pnemothorax Progress Note: EKG, blood work, CXR, and urinalysis ordered. Disposition Discussed With Dr.: Jama Salmon Comment: accepted the pt on his service and took over the care at 11:40 PM Doctor Will See Patient In The: Hospital Counseled Patient/Family Regarding: Studies Performed, Diagnosis - Disposition Disposition: HOSPITALIZED Disposition Time: 22:59 Condition: FAIR Forms: [employer] (L[place]uanian) - POA Present On Arrival: Poor Glycemic Control - Clinical Impression Clinical Impression: Change in mental status, COPD (chronic obstructive pulmonary disease), Diabetes - Scribe Statement The provider has reviewed the documentation as recorded by the Scribe Virgil Ann All medical record entries made by the Scribe were at my direction and personally dictated by me. I have reviewed the chart and agree that the record accurately reflects my personal performance of the history, physical exam, medical decision making, and the department course for this patient. I have also personally directed, reviewed, and agree with the discharge instructions and disposition. Decision To Admit - Pt Status Changed To: Hospital Disposition Of: Inpatient - Admit Certification Admit to Inpatient:: After my assessment, the patient will require hospitalization for at least two midnights. This is because of the severity of symptoms shown, intensity of services needed, and/or the medical risk in this patient being treated as an outpatient. - InPatient: Physician Admission Certification: I certify that this patient requires 2 or more midnights of care for the following reason:: After my assessment, the patient will require hospitalization for at least two midnights. This is because of the severity of symptoms shown, intensity of services needed, and/or the medical risk in this patient being treated as an outpatient. - . Bed Request Type: Regular Admitting Physician: Jama Salmon Patient Diagnosis: Change in mental status, COPD (chronic obstructive pulmonary disease), Diabetes
[2017-07-01 23:27] LABS: BASO # 0.1 K/uL (0.0-0.2); BASO % 1.3 % (0.0-2.0); EOS # 0.3 K/uL (0.0-0.7); EOS % 3.1 % (0.0-4.0); HEMATOCRIT 31.8 % (34.0-47.0); LYMPH # 1.8 K/uL (1.0-4.3); MEAN CELL VOLUME 87.1 fL (81.0-99.0); MEAN CORPUSCULAR HGB CONC 34.5 g/dL (33.0-37.0); MEAN PLATELET VOLUME 7.3 fL (7.2-11.7); MONO # 0.5 K/uL (0.0-0.8); MONO % 5.6 % (0.0-10.0); RED CELL DISTRIBUTION WIDTH 13.6 % (11.5-14.5); WHITE BLOOD COUNT 8.3 K/uL (4.8-10.8)
[2017-07-01 23:35] LABS: INR 1.2
[2017-07-01 23:36] LABS: CHLORIDE 99 mmol/L (98-107); POTASSIUM 4.2 mmol/L (3.6-5.2); SODIUM 140 mmol/L (132-148)
[2017-07-01 23:38] LABS: AST/SGOT 32 U/L (14-36); BILIRUBIN,TOTAL 0.8 mg/dL (0.2-1.3); CARBON DIOXIDE 23 mmol/L (22-30); GFR AFRICAN-AMERICAN > 60
[2017-07-01 23:39] LABS: ALKALINE PHOSPHATASE 115 U/L (38-126); ALT/SGPT 17 U/L (9-52); BLOOD UREA NITROGEN 17 mg/dL (7-17); CALCIUM 8.8 mg/dl (8.6-10.4); GLUCOSE,RANDOM 177 mg/dL (65-105); TOTAL PROTEIN 7.8 g/dL (6.3-8.3)
[2017-07-02 00:09] LABS: THYROID STIMULATING HORMONE 1.51 mIU/L (0.46-4.68)
--- NOTE | 2017-07-02 08:07 | CARD ---
APPROVED REPORT EKG Measurement Heart [id number] <Conclusion> Normal sinus rhythm Nonspecific ST and T wave abnormality Abnormal ECG
[2017-07-02] MEDS: GlipiZIDE 2.5 mg SR Tab PO SCH ×2 (08:36→17:42)
[2017-07-02] MEDS: (Novolin R) Insulin Human Regular 100 units/ml vial SC SCH ×4 (08:37→22:08)
--- NOTE | 2017-07-02 08:38 | RAD ---
PROCEDURE: CHEST RADIOGRAPH, 1 VIEW HISTORY: Shortness of breath COMPARISON: 06/12/2017 FINDINGS: LUNGS: Mild venous congestion. Right hilar prominence. Mild nodularity at the right lung base laterally. PLEURA: No pneumothorax or pleural fluid seen. CARDIOVASCULAR: Normal. OSSEOUS STRUCTURES: Deformity of the left proximal humerus. Productive change at the distal acromion on the right. VISUALIZED UPPER ABDOMEN: Normal. OTHER FINDINGS: None. IMPRESSION: Mild venous congestion. Right hilar prominence. Mild nodularity at the right lung base laterally.
[2017-07-02] MEDS: Pantoprazole 40 mg EC Tab PO SCH (09:16)
[2017-07-02] MEDS: Enoxaparin 40 mg Syringe SC SCH (09:17)
--- NOTE | 2017-07-02 13:58 | CP.PCM.HP ---
History of Present Illness - History of Present Illness History of Present Illness: COMPREHENSIVE HISTORY & PHYSICAL EXAM HPI PER THE FAMILY PT HAS INCREASING MENTAL CONFUSION WITH FALLS AND UNABLE TO FUNCTION AT HOME AND DO HER ADL . FAMILY IS LOOKING FOR [facility] AND THEN DAUGHTER WILL TRANSFER PT TO [place] PAST HIST. T2DM/HTN/DEMENTIA/R PERSONAL HIST: Smoking. N Alcohol. N Allergy N Travel_- . FAMILY HIST : ROS :(DAUGHTER PRESENT ) Constitutional: Negative for weight change, chills, night sweats, fatigue and usage of assist device. Eyes: Negative for redness, swelling, itching, discharge, vision changes, blurry vision, double vision, glaucoma, cataracts, Ears: Negative for hearing loss, ringing, , tinnitus, vertigo Nose: Negative for rhinorrhea, stuffiness, sniffing, itching, postnasal drip, discoloration, nasal congestion and epistaxis. Throat: Negative for throat clearing, sore throat, hoarseness, difficulty swallowing and difficulty speaking. Respiratory: Negative for cough, , sputum production, chest tightness, wheezing, pleuritic chest pain ,daytime somnolence, chronic cough, hemoptysis, snoring at night, Cardiovascular: Negative for chest pain, palpitations, orthopnea, PND, Edema of legs, leg cramps, angina, claudication, , irregular heartbeat, Neurology: Negative for irritability, muscle weakness, numbness and tingling, seizures, tremors, migraines, slurred speech, syncope, memory loss, mood changes , recurrent headaches Gastrointestinal: Negative for difficulty swallowing, diarrhea, constipation, black stools, rectal bleeding, nausea, flatulence, reflux, poor appetite, changes in bowel habits, abdominal pain Genitourinary: Negative for frequent urination, hematuria, discharge, incontinence, urinary retention, frequent UTI, Psychiatric: Negative for depression, anxiety/panic, suicidal tendencies, Musculoskeletal: Negative for swollen joints, back pain, , neck pain, morning stiffness of joints, . Skin: Negative for rash, ulcers, itching, dry skin and pigmented lesions. P/E: Constitutional: Appears stated age and in no apparent distress. Head: Normocephalic. Ears: External ear canals patent without inflammation. Tympanic membranes intact with normal light reflex and landmark. Eyes: Pupils are central, bilaterally equal, symmetrical and reacts to light with normal movements and no icterus or pallor. Nose: External nares are patent. Mucosa is pink Mouth-Throat: Good general appearance and condition. No post-pharyngeal/oropharyngeal erythema and tonsillar hypertrophy. Good dental hygiene. Neck-Lymphatic: Neck is supple with normal ROM, no thyromegaly, lymph nodes or masses. JVD is normal with no carotid bruit. Lungs: Clear to percussion and auscultation with bilateral normal air entry. Cardiovascular: S1 and S2 are normal with no murmurs, gallops and rub. GI Exam: No hepatomegaly. Abdomen is soft and non-tender. No Organomegaly , masses or hernias are evident and bowel sounds are normal and active. Neurology: Higher function and all cranial nerves intact, with no gross motor or sensory deficit. Superficial and deep reflexes are normal with downwards planters. No cerebellar deficit with normal gait. Musculoskeletal: No tender spots with normal curvature of the spine with no swelling or restricted ROM of the small and large joints. Extremities: Homans sign absent. Intact pulses with no pitting edema, calf tenderness or skin color changes. Skin: No rash, eruptions or abnormal skin pigmentation LAB/RADIOLOGY: ASSESMENT : T2DM COPD DEMENTIA PLAN: PLACEMENT Present on Admission - Present on Admission Any Indicators Present on Admission: No Past Patient History - Infectious Disease Hx of Infectious Diseases: None - Past Medical History & Family History Past Medical History?: Yes - Past Social History Smoking Status: Unknown If Ever Smoked - CARDIAC Hx Cardiac Disorders: Yes Hx Hypercholesterolemia: Yes Hx Hypertension: Yes - PULMONARY Hx Respiratory Disorders: Yes Hx Chronic Obstructive Pulmonary Disease (COPD): Yes - NEUROLOGICAL Hx Neurological Disorder: Yes Hx Alzheimer's Disease: Yes Hx Dementia: Yes - HEENT Hx HEENT Problems: Yes Other/Comment: glasses for reading - RENAL Hx Chronic Kidney Disease: Yes Hx Kidney Stones: Yes - ENDOCRINE/METABOLIC Hx Endocrine Disorders: Yes Hx Diabetes Mellitus Type 2: Yes - HEMATOLOGICAL/ONCOLOGICAL Hx Blood Disorders: No - INTEGUMENTARY Hx Dermatological Problems: No - MUSCULOSKELETAL/RHEUMATOLOGICAL Hx Musculoskeletal Disorders: Yes Hx Arthritis: Yes (KNEES; L SHOULDER) Hx Falls: No Hx Osteoporosis: Yes - GASTROINTESTINAL Hx Gastrointestinal Disorders: No - GENITOURINARY/GYNECOLOGICAL Hx Genitourinary Disorders: No - PSYCHIATRIC Hx Psychophysiologic Disorder: No Hx Substance Use: No - SURGICAL HISTORY Hx Surgeries: Yes Hx Cholecystectomy: Yes - ANESTHESIA Hx Anesthesia: Yes Hx Anesthesia Reactions: No Hx Malignant Hyperthermia: No Has any member of the family had a problem w/ anesthesia?: No Meds Allergies/Adverse Reactions: Allergies Allergy/AdvReac Type Severity Reaction Status Date / Time No Known Allergies Allergy Verified 07/01/17 22:13 Results - Vital Signs Recent Vital Signs: Last Vital Signs Temp 97 F L 07/02/17 07:49 Pulse 60 07/02/17 07:49 Resp 20 07/02/17 07:49 BP 133/67 07/02/17 09:16 Pulse Ox 99 07/02/17 07:49 - Labs Result Diagrams: 07/15/17 06:16 07/15/17 06:16 Labs: Laboratory Results - last 24 hr 07/02/17 07/02/17 07:23 11:22 POC Glucose (mg/dL) 196 H 206 H
[2017-07-02 15:02] LABS: RBC URINE 9 /hpf (0-3); URINE BACTERIA RARE (<OCC); URINE BILIRUBIN NEGATIVE (NEGATIVE); URINE BLOOD 1+ (NEGATIVE); URINE COLOR Yellow (YELLOW); URINE GLUCOSE (UA) NORMAL (Normal); URINE KETONE NEGATIVE (NEGATIVE); URINE LEUKOCYTE ESTERASE 3+ Leu/uL (Negative); URINE PROTEIN NEGATIVE (NEGATIVE); URINE UROBILINOGEN NORMAL mg/dL (0.2-1.0); WBC CLUMPS MANY /hpf; WBC URINE 166 /hpf (0-5)
[2017-07-03] MEDS: GlipiZIDE 2.5 mg SR Tab PO SCH ×2 (08:09→17:31)
[2017-07-03] MEDS: (Novolin R) Insulin Human Regular 100 units/ml vial SC SCH ×4 (09:05→22:24)
[2017-07-03] MEDS: Enoxaparin 40 mg Syringe SC SCH (10:22)
[2017-07-03] MEDS: Pantoprazole 40 mg EC Tab PO SCH (10:25)
--- NOTE | 2017-07-03 13:37 | CP.PCM.PN ---
Subjective - Date & Time of Evaluation Date of Evaluation: 07/03/17 Time of Evaluation: 13:35 - Subjective Subjective: CHIEF COMPLAINTS TODAY : NO SP. COMPLAINTS ROS. PT. NOT ANSWERING PE. Pt. is alert awake in no distress. V.S As noted in the chart Head ,ear nose,throat and eyes : Normal. Neck : Supple with normal carotids. Lungs: Clear air entry. Heart : S1 & S2 normal with S4. No murmur. Abd : Soft non tender with normal bowel sounds. Neuro : Moves all ext. with no localized deficit. Ext : No edema with intact pulses.Non tender calves Derm : No rashes or decubitus ulcer. LABS/RADIOLOGY: CHECK URINE C/S ASSESSMENT/PLAN : FOR PLACEMENT Objective - Vital Signs/Intake and Output Vital Signs (last 24 hours): Temp Pulse Resp BP Pulse Ox 98.6 F 67 20 130/77 97 07/03/17 08:19 07/03/17 08:19 07/03/17 08:19 07/03/17 10:26 07/03/17 08:19 - Medications Medications: Current Medications Enalapril Maleate (Vasotec) 5 mg PO DAILY [facility] Last Admin: 07/03/17 10:26 Dose: 5 mg Enoxaparin Sodium (Lovenox) 40 mg SC DAILY [facility] Last Admin: 07/03/17 10:22 Dose: 40 mg Glipizide (Glucotrol Xl) 2.5 mg PO ACBD [facility] Last Admin: 07/03/17 08:09 Dose: 2.5 mg Insulin Human Regular (Novolin R) 0 unit SC ACHS [facility] PRN Reason: Protocol Last Admin: 07/03/17 13:21 Dose: Not Given Metformin HCl (Glucophage) 500 mg PO BID [facility] Last Admin: 07/03/17 09:08 Dose: 500 mg Pantoprazole Sodium (Protonix Ec Tab) 40 mg PO DAILY [facility] Last Admin: 07/03/17 10:25 Dose: 40 mg - Labs Labs: PT 13.0 SECONDS (9.7-12.2) H 07/01/17 23:24 INR 1.2 07/01/17 23:24 APTT 27 SECONDS (21-34) 07/01/17 23:24
[2017-07-04] MEDS: (Novolin R) Insulin Human Regular 100 units/ml vial SC SCH ×4 (08:27→22:13)
[2017-07-04] MEDS: GlipiZIDE 2.5 mg SR Tab PO SCH ×2 (08:30→17:31)
[2017-07-04] MEDS: Enoxaparin 40 mg Syringe SC SCH (09:52)
[2017-07-04] MEDS: Pantoprazole 40 mg EC Tab PO SCH (09:52)
--- NOTE | 2017-07-04 13:21 | CP.PCM.CON ---
History of Present Illness - History of Present Illness History of Present Illness: INFECTIOUS DISEASE CONSULT; HPI: 86-year-old female with history of HTN, Alzheimer's dementia, kidney stones, osteoporosis was brought in by her daughter with complaints of change in mental status,with confusion and falls and unable to function at home and do her ADLs. Patient well known to me from her previous admission and has had UTIs in the past. Patient also had a history of left ureteral stent which was removed in November 2016. Patient unable to give any details but at times is incontinent of urine. Patient only speaks Sami and difficult to obtain facts. Patient was found to have foul-smelling urine with multiple WBCs. No history of hematuria.URINE CULTURE WAS SENT WHICH CAME BACK POSITIVE FOR ESBL POSITIVE ESCHERICHIA COLI.-S -IMIPENEM / GENTAMICIN. Infectious disease consultation was requested by PMD for further therapy . Allergy; nka PMH: Alzheimer's Disease, Dementia, HTN, Kidney Stones, Osteoporosis Surgical History: Cholecystectomy - [facility] Procedures DILATION OF LEFT URETER WITH INTRALUMINAL DEVICE, ENDO (12/19/16) EXTIRPATION OF MATTER FROM LEFT KIDNEY, ENDO (12/19/16) REMOVAL OF INTRALUMINAL DEVICE FROM URETER, ENDO (12/19/16) Family History: States: No Known Family Hx - Social History Hx Alcohol Use: No Hx Substance Use: No - Immunization History Hx Tetanus Toxoid Vaccination: Yes Hx Influenza Vaccination: Yes Hx Pneumococcal Vaccination: Yes Review of Systems - Review of Systems Systems not reviewed;Unavailable: Dementia, Altered Mental Status - Constitutional Constitutional: Frequent Falls Past Patient History - Infectious Disease Hx of Infectious Diseases: None - Past Medical History & Family History Past Medical History?: Yes - Past Social History Smoking Status: Unknown If Ever Smoked - CARDIAC Hx Cardiac Disorders: Yes Hx Hypercholesterolemia: Yes Hx Hypertension: Yes - PULMONARY Hx Chronic Obstructive Pulmonary Disease (COPD): Yes - NEUROLOGICAL Hx Neurological Disorder: Yes Hx Alzheimer's Disease: Yes Hx Dementia: Yes - HEENT Hx HEENT Problems: Yes Other/Comment: glasses for reading - RENAL Hx Chronic Kidney Disease: Yes Hx Kidney Stones: Yes - ENDOCRINE/METABOLIC Hx Diabetes Mellitus Type 2: Yes - HEMATOLOGICAL/ONCOLOGICAL Hx Blood Disorders: No - INTEGUMENTARY Hx Dermatological Problems: No - MUSCULOSKELETAL/RHEUMATOLOGICAL Hx Arthritis: Yes (KNEES; L SHOULDER) - GASTROINTESTINAL Hx Gastrointestinal Disorders: No - GENITOURINARY/GYNECOLOGICAL Hx Genitourinary Disorders: No - PSYCHIATRIC Hx Psychophysiologic Disorder: No Hx Substance Use: No - SURGICAL HISTORY Hx Surgeries: Yes Hx Cholecystectomy: Yes - ANESTHESIA Hx Anesthesia: Yes Hx Anesthesia Reactions: No Hx Malignant Hyperthermia: No Has any member of the family had a problem w/ anesthesia?: No Meds Allergies/Adverse Reactions: Allergies Allergy/AdvReac Type Severity Reaction Status Date / Time No Known Allergies Allergy Verified 07/01/17 22:13 - Medications Medications: Current Medications Enalapril Maleate (Vasotec) 5 mg PO DAILY [facility] Last Admin: 07/04/17 09:52 Dose: 5 mg Enoxaparin Sodium (Lovenox) 40 mg SC DAILY [facility] Last Admin: 07/04/17 09:52 Dose: 40 mg Glipizide (Glucotrol Xl) 2.5 mg PO ACBD [facility] Last Admin: 07/04/17 08:30 Dose: 2.5 mg Imipenem/Cilastatin Sodium 500 (mg/ Dextrose) 100 mls @ 100 mls/hr IVPB Q8H [facility] Insulin Human Regular (Novolin R) 0 unit SC ACHS [facility] PRN Reason: Protocol Last Admin: 07/04/17 12:18 Dose: 3 unit Metformin HCl (Glucophage) 500 mg PO BID [facility] Last Admin: 07/04/17 09:51 Dose: 500 mg Pantoprazole Sodium (Protonix Ec Tab) 40 mg PO DAILY [facility] Last Admin: 07/04/17 09:52 Dose: 40 mg Physical Exam - Constitutional Appears: No Acute Distress - Head Exam Head Exam: NORMAL INSPECTION - Eye Exam Eye Exam: EOMI, PERRL - ENT Exam ENT Exam: Normal Oropharynx - Neck Exam Neck exam: Positive for: Normal Inspection - Respiratory Exam Respiratory Exam: Clear to Auscultation Bilateral, NORMAL BREATHING PATTERN - Cardiovascular Exam Cardiovascular Exam: REGULAR RHYTHM, +S1, +S2 - GI/Abdominal Exam GI & Abdominal Exam: Normal Bowel Sounds, Soft. absent: Organomegaly, Tenderness - Extremities Exam Extremities exam: Positive for: pedal pulses present. Negative for: calf tenderness, pedal edema - Neurological Exam Neurological exam: Altered, CN II-XII Intact, Reflexes Normal - Psychiatric Exam Psychiatric exam: Flat Affect - Skin Skin Exam: Normal Color, Warm Results - Vital Signs Recent Vital Signs: Last Vital Signs Temp 98.4 F 07/04/17 08:29 Pulse 69 07/04/17 08:29 Resp 20 07/04/17 08:29 BP 120/70 07/04/17 09:52 Pulse Ox 98 07/04/17 08:29 - Labs Result Diagrams: 07/01/17 23:24 07/01/17 23:24 Labs: Laboratory Results - last 24 hr 07/03/17 07/03/17 07/04/17 16:26 21:31 07:19 POC Glucose (mg/dL) 135 H 156 H 139 H 07/04/17 11:30 POC Glucose (mg/dL) 204 H - Imaging and Cardiology Chest x-ray Status: Report reviewed by me (chest x-ray 07/01/17; mild venous congestion. Right hilar prominence. Mild nodularity right lung base.) Assessment & Plan (1) Change in mental status Status: Acute (2) UTI (urinary tract infection) Status: Acute (3) Ureteral calculus, left Status: Acute (4) Hydronephrosis, left Status: Acute (5) Falls frequently Status: Acute (6) COPD (chronic obstructive pulmonary disease) Status: Acute - Assessment and Plan (Free Text) Plan: PLAN; START iv pRIMAXIN 500 MG iv PIGGYBACK EVERY [address] 07/04/17. CT OF THE CHEST/ ABDOMEN WITHOUT CONTRAST TO EVALUATE FOR HYDRONEPHROSIS/OR OBSTRUCTIVE RENAL CALCULI SINCE PATIENT HAS HISTORY OF BILATERAL RENAL CALCULI/ AND ABNORMAL CXR. PATIENT IS INCONTINENT OF URINE. DIAPERS AT PRESENT MONITOR RENAL FUNCTIONS CLOSELY. WILL FOLLOW PATIENT WHILE IN THE HOUSE.
--- NOTE | 2017-07-04 13:44 | CP.PCM.PN ---
Subjective - Date & Time of Evaluation Date of Evaluation: 07/04/17 Time of Evaluation: 13:44 - Subjective Subjective: CHIEF COMPLAINTS TODAY : NO SP. COMPLAINTS ROS. PT. NOT ANSWERING PE. Pt. is alert awake in no distress. V.S As noted in the chart Head ,ear nose,throat and eyes : Normal. Neck : Supple with normal carotids. Lungs: Clear air entry. Heart : S1 & S2 normal with S4. No murmur. Abd : Soft non tender with normal bowel sounds. Neuro : Moves all ext. with no localized deficit. Ext : No edema with intact pulses.Non tender calves Derm : No rashes or decubitus ulcer. LABS/RADIOLOGY: CHECK URINE C/S ASSESSMENT/PLAN : FOR PLACEMENT ID EVAL FOR UTI Objective - Vital Signs/Intake and Output Vital Signs (last 24 hours): Temp Pulse Resp BP Pulse Ox 98.4 F 69 20 120/70 98 07/04/17 08:29 07/04/17 08:29 07/04/17 08:29 07/04/17 09:52 07/04/17 08:29 - Medications Medications: Current Medications Enalapril Maleate (Vasotec) 5 mg PO DAILY [facility] Last Admin: 07/04/17 09:52 Dose: 5 mg Enoxaparin Sodium (Lovenox) 40 mg SC DAILY [facility] Last Admin: 07/04/17 09:52 Dose: 40 mg Glipizide (Glucotrol Xl) 2.5 mg PO ACBD [facility] Last Admin: 07/04/17 08:30 Dose: 2.5 mg Imipenem/Cilastatin Sodium 500 (mg/ Dextrose) 100 mls @ 100 mls/hr IVPB Q8H [facility] Insulin Human Regular (Novolin R) 0 unit SC ACHS [facility] PRN Reason: Protocol Last Admin: 07/04/17 12:18 Dose: 3 unit Metformin HCl (Glucophage) 500 mg PO BID [facility] Last Admin: 07/04/17 09:51 Dose: 500 mg Pantoprazole Sodium (Protonix Ec Tab) 40 mg PO DAILY [facility] Last Admin: 07/04/17 09:52 Dose: 40 mg - Labs Labs: PT 13.0 SECONDS (9.7-12.2) H 07/01/17 23:24 INR 1.2 07/01/17 23:24 APTT 27 SECONDS (21-34) 07/01/17 23:24
[2017-07-04] MEDS ORDERED: Imipenem/Cilastatin 500 MG in Dextrose 5% In Water 100 ML IVPB SCH (14:00)
[2017-07-05 07:59] LABS: BASO % 0.8 % (0.0-2.0); EOS # 0.2 K/uL (0.0-0.7); EOS % 3.1 % (0.0-4.0); HEMATOCRIT 31.9 % (34.0-47.0); LYMPH # 1.5 K/uL (1.0-4.3); LYMPH % 27.2 % (20.0-40.0); MEAN CELL VOLUME 86.2 fL (81.0-99.0); MEAN CORPUSCULAR HEMOGLOBIN 30.3 pg (27.0-31.0); MEAN CORPUSCULAR HGB CONC 35.1 g/dL (33.0-37.0); MEAN PLATELET VOLUME 7.1 fL (7.2-11.7); MONO # 0.4 K/uL (0.0-0.8); MONO % 7.8 % (0.0-10.0); NRBC % 0.1 % (0.0-2.0); WHITE BLOOD COUNT 5.6 K/uL (4.8-10.8)
[2017-07-05 08:03] LABS: CHLORIDE 101 mmol/L (98-107); SODIUM 140 mmol/L (132-148)
[2017-07-05 08:04] LABS: POTASSIUM 3.5 mmol/L (3.6-5.2)
[2017-07-05 08:06] LABS: ALKALINE PHOSPHATASE 116 U/L (38-126); AST/SGOT 17 U/L (14-36); BILIRUBIN,DIRECT 0.4 mg/dL (0.0-0.4); BILIRUBIN,TOTAL 0.8 mg/dL (0.2-1.3); BLOOD UREA NITROGEN 13 mg/dL (7-17); CARBON DIOXIDE 30 mmol/L (22-30); GFR AFRICAN-AMERICAN > 60; GLUCOSE,RANDOM 81 mg/dL (65-105); TOTAL PROTEIN 7.2 g/dL (6.3-8.3)
[2017-07-05 08:07] LABS: ALT/SGPT 20 U/L (9-52); CALCIUM 8.9 mg/dl (8.6-10.4)
[2017-07-05] MEDS: (Novolin R) Insulin Human Regular 100 units/ml vial SC SCH ×4 (08:09→21:12)
[2017-07-05] MEDS: GlipiZIDE 2.5 mg SR Tab PO SCH ×2 (08:43→16:30)
[2017-07-05] MEDS: Enoxaparin 40 mg Syringe SC SCH (10:24)
[2017-07-05] MEDS: Pantoprazole 40 mg EC Tab PO SCH (10:24)
--- NOTE | 2017-07-05 13:17 | CP.PCM.PN ---
Subjective - Date & Time of Evaluation Date of Evaluation: 07/05/17 Time of Evaluation: 13:17 - Subjective Subjective: CHIEF COMPLAINTS TODAY : NO SP. COMPLAINTS ROS. PT. NOT ANSWERING PE. Pt. is alert awake in no distress. V.S As noted in the chart Head ,ear nose,throat and eyes : Normal. Neck : Supple with normal carotids. Lungs: Clear air entry. Heart : S1 & S2 normal with S4. No murmur. Abd : Soft non tender with normal bowel sounds. Neuro : Moves all ext. with no localized deficit. Ext : No edema with intact pulses.Non tender calves Derm : No rashes or decubitus ulcer. LABS/RADIOLOGY: CHECK URINE C/S ASSESSMENT/PLAN : FOR PLACEMENT IV AB FOR UTI Objective - Vital Signs/Intake and Output Vital Signs (last 24 hours): Temp Pulse Resp BP Pulse Ox 98.2 F 67 20 138/81 96 07/05/17 08:09 07/05/17 08:09 07/05/17 08:09 07/05/17 10:24 07/05/17 08:09 - Medications Medications: Current Medications Enalapril Maleate (Vasotec) 5 mg PO DAILY [facility] Last Admin: 07/05/17 10:24 Dose: 5 mg Enoxaparin Sodium (Lovenox) 40 mg SC DAILY [facility] Last Admin: 07/05/17 10:24 Dose: 40 mg Glipizide (Glucotrol Xl) 2.5 mg PO ACBD [facility] Last Admin: 07/05/17 08:43 Dose: 2.5 mg Imipenem/Cilastatin Sodium 500 (mg/ Sodium Chloride) 100 mls @ 100 mls/hr IVPB Q8H [facility] Last Admin: 07/05/17 05:50 Dose: 100 mls/hr Insulin Human Regular (Novolin R) 0 unit SC ACHS [facility] PRN Reason: Protocol Last Admin: 07/05/17 11:58 Dose: 4 unit Metformin HCl (Glucophage) 500 mg PO BID [facility] Last Admin: 07/05/17 10:24 Dose: 500 mg Pantoprazole Sodium (Protonix Ec Tab) 40 mg PO DAILY [facility] Last Admin: 07/05/17 10:24 Dose: 40 mg Potassium Chloride (K-Dur 20 Meq Er Tab) 20 meq PO ONCE ONE Stop: 07/05/17 14:01 - Labs Labs: 07/05/17 07:45 08/11/17 07:45 PT 13.0 SECONDS (9.7-12.2) H 07/01/17 23:24 INR 1.2 07/01/17 23:24 APTT 27 SECONDS (21-34) 07/01/17 23:24
--- NOTE | 2017-07-05 13:18 | CP.PCM.PN ---
Subjective - Date & Time of Evaluation Date of Evaluation: 07/05/17 Time of Evaluation: 13:18 - Subjective Subjective: CHIEF COMPLAINTS TODAY : AFEBRILE Offers no new complaints. Intermittent incontinence. ROS. PT. NOT ANSWERING PE. Pt. is alert awake in no distress. V.S As noted in the chart Head ,ear nose,throat and eyes : Normal. Neck : Supple with normal carotids. Lungs: Clear air entry. Heart : S1 & S2 normal with S4. No murmur. Abd : Soft non tender with normal bowel sounds. Neuro : Moves all ext. with no localized deficit. Ext : No edema with intact pulses.Non tender calves Derm : No rashes or decubitus ulcer. LABS/RADIOLOGY: urine culture 07/02/17 positive for Escherichia coli. ASSESSMENT/PLAN : patient to continue IV antibiotics. Follow-up CT chest abdomen and pelvis with IV contrast as ordered To rule out hydronephrosis and renal calculi. Objective - Vital Signs/Intake and Output Vital Signs (last 24 hours): Temp Pulse Resp BP Pulse Ox 98.2 F 67 20 138/81 96 07/05/17 08:09 07/05/17 08:09 07/05/17 08:09 07/05/17 10:24 07/05/17 08:09 Intake and Output: 07/05/17 07/05/17 06:59 18:59 Intake Total 340 Output Total 1 Balance 339 - Medications Medications: Current Medications Enalapril Maleate (Vasotec) 5 mg PO DAILY [facility] Last Admin: 07/05/17 10:24 Dose: 5 mg Enoxaparin Sodium (Lovenox) 40 mg SC DAILY [facility] Last Admin: 07/05/17 10:24 Dose: 40 mg Glipizide (Glucotrol Xl) 2.5 mg PO ACBD [facility] Last Admin: 07/05/17 08:43 Dose: 2.5 mg Imipenem/Cilastatin Sodium 500 (mg/ Sodium Chloride) 100 mls @ 100 mls/hr IVPB Q8H [facility] Last Admin: 07/05/17 05:50 Dose: 100 mls/hr Insulin Human Regular (Novolin R) 0 unit SC ACHS [facility] PRN Reason: Protocol Last Admin: 07/05/17 11:58 Dose: 4 unit Metformin HCl (Glucophage) 500 mg PO BID [facility] Last Admin: 07/05/17 10:24 Dose: 500 mg Pantoprazole Sodium (Protonix Ec Tab) 40 mg PO DAILY [facility] Last Admin: 07/05/17 10:24 Dose: 40 mg Potassium Chloride (K-Dur 20 Meq Er Tab) 20 meq PO ONCE ONE Stop: 07/05/17 14:01 - Labs Labs: 07/05/17 07:45 07/05/17 07:45 PT 13.0 SECONDS (9.7-12.2) H 07/01/17 23:24 INR 1.2 07/01/17 23:24 APTT 27 SECONDS (21-34) 07/01/17 23:24 Assessment and Plan (1) Change in mental status Status: Acute (2) UTI (urinary tract infection) Status: Acute (3) Ureteral calculus, left Status: Acute (4) Hydronephrosis, left Status: Acute (5) Falls frequently Status: Acute (6) COPD (chronic obstructive pulmonary disease) Status: Acute
[2017-07-05] MEDS ORDERED: Potassium Chloride 20 mEq ER Tab PO ONE (14:00)
[2017-07-05] MEDS ORDERED: Iohexol 350mg/ml 100 ML ONE (17:19)
--- NOTE | 2017-07-05 18:59 | CT ---
PROCEDURE: CT Chest, Abdomen and Pelvis with intravenous contrast HISTORY: renal calculi/right hydronephrosis s/p stent remov COMPARISON: CT abdomen/ pelvis 06/12/2017, CT chest, abdomen and pelvis 12/19/2016 TECHNIQUE: IV dose administered: 100 mL Omnipaque 350 Radiation dose: Total exam DLP = 824.46 mGy-cm. This CT exam was performed using one or more of the following dose reduction techniques: Automated exposure control, adjustment of the mA and/or kV according to patient size, and/or use of iterative reconstruction technique. FINDINGS: CT CHEST WITH CONTRAST: LUNGS: Minimal right upper lobe linear scar/ atelectasis. No infiltrate. No pulmonary mass. MEDIASTINUM: . Normal caliber aorta and pulmonary arterial trunk. No aortic dissection. Normal size heart. Coronary arterial calcification. LYMPH NODES: Calcified right paratracheal node consistent with old granulomatous disease. PLEURA: Unremarkable. No pneumothorax. No pleural fluid. BONES: Unremarkable. OTHER FINDINGS: None. CT ABDOMEN AND PELVIS: LIVER: Normal size, contour and attenuation. Mild central intrahepatic biliary dilatation. No mass. GALLBLADDER AND BILE DUCTS: Status post cholecystectomy. Dilatation of common bile duct up to 15 mm consistent with patient age and prior cholecystectomy. Unchanged from prior examination. PANCREAS: Unremarkable. No gross lesion or ductal dilatation. SPLEEN: Unremarkable. ADRENALS: Unremarkable. No mass. KIDNEYS AND URETERS: 11 mm right upper pole renal cortical cyst. No hydronephrosis. No large renal calculus. Evaluation for renal calculi is limited by the presence of excreted contrast material. VASCULATURE: Unremarkable. No aortic aneurysm. BOWEL: Unremarkable. No obstruction. No gross mural thickening. APPENDIX: Not identified PERITONEUM: Unremarkable. No free fluid. No free air. LYMPH NODES: Unremarkable. No enlarged lymph nodes. BLADDER: Unremarkable. REPRODUCTIVE: Status post hysterectomy BONES: No acute fracture. OTHER FINDINGS: None. IMPRESSION: No hydronephrosis. No large renal calculus. No pulmonary infiltrate. No hilar mass.
[2017-07-06] MEDS: (Novolin R) Insulin Human Regular 100 units/ml vial SC SCH ×4 (09:21→21:32)
[2017-07-06] MEDS: Pantoprazole 40 mg EC Tab PO SCH (09:22)
[2017-07-06] MEDS: Enoxaparin 40 mg Syringe SC SCH (09:23)
--- NOTE | 2017-07-06 13:29 | CP.PCM.PN ---
Subjective - Date & Time of Evaluation Date of Evaluation: 07/06/17 Time of Evaluation: 13:28 - Subjective Subjective: CHIEF COMPLAINTS TODAY : NO SP. COMPLAINTS ROS. PT. NOT ANSWERING PE. Pt. is alert awake in no distress. V.S As noted in the chart Head ,ear nose,throat and eyes : Normal. Neck : Supple with normal carotids. Lungs: Clear air entry. Heart : S1 & S2 normal with S4. No murmur. Abd : Soft non tender with normal bowel sounds. Neuro : Moves all ext. with no localized deficit. Ext : No edema with intact pulses.Non tender calves Derm : No rashes or decubitus ulcer. LABS/RADIOLOGY: CTABD/CHEST , NOTHING ACUTE ASSESSMENT/PLAN : FOR PLACEMENT IV AB FOR UTI Objective - Vital Signs/Intake and Output Vital Signs (last 24 hours): Temp Pulse Resp BP Pulse Ox 97.7 F 69 20 130/72 93 L 07/06/17 09:20 07/06/17 09:20 07/06/17 09:20 07/06/17 09:22 07/06/17 09:20 - Medications Medications: Current Medications Enalapril Maleate (Vasotec) 5 mg PO DAILY [facility] Last Admin: 07/06/17 09:22 Dose: 5 mg Enoxaparin Sodium (Lovenox) 40 mg SC DAILY [facility] Last Admin: 07/06/17 09:23 Dose: 40 mg Glipizide (Glucotrol Xl) 2.5 mg PO ACBD [facility] Last Admin: 07/05/17 16:30 Dose: Not Given Imipenem/Cilastatin Sodium 500 (mg/ Sodium Chloride) 100 mls @ 100 mls/hr IVPB Q8H [facility] Last Admin: 07/06/17 05:17 Dose: 100 mls/hr Insulin Human Regular (Novolin R) 0 unit SC ACHS [facility] PRN Reason: Protocol Last Admin: 07/06/17 09:21 Dose: 2 unit Metformin HCl (Glucophage) 500 mg PO BID [facility] Last Admin: 07/05/17 17:14 Dose: Not Given Pantoprazole Sodium (Protonix Ec Tab) 40 mg PO DAILY [facility] Last Admin: 07/06/17 09:22 Dose: 40 mg - Labs Labs: 07/05/17 07:45 07/05/17 07:45 PT 13.0 SECONDS (9.7-12.2) H 07/01/17 23:24 INR 1.2 07/01/17 23:24 APTT 27 SECONDS (21-34) 07/01/17 23:24
[2017-07-06] MEDS: GlipiZIDE 2.5 mg SR Tab PO SCH (17:46)
--- NOTE | 2017-07-06 20:54 | CP.PCM.PN ---
Subjective - Date & Time of Evaluation Date of Evaluation: 07/06/17 Time of Evaluation: 20:54 - Subjective Subjective: CHIEF COMPLAINTS TODAY : AFEBRILE Offers no new complaints. Intermittent incontinence. ROS. PT. NOT ANSWERING PE. Pt. is alert awake in no distress. V.S As noted in the chart Head ,ear nose,throat and eyes : Normal. Neck : Supple with normal carotids. Lungs: Clear air entry. Heart : S1 & S2 normal with S4. No murmur. Abd : Soft non tender with normal bowel sounds. Neuro : Moves all ext. with no localized deficit. Ext : No edema with intact pulses.Non tender calves Derm : No rashes or decubitus ulcer. LABS/RADIOLOGY: urine culture 07/02/17 positive for Escherichia coli. ASSESSMENT/PLAN : patient to continue IV antibiotics. CONTINUE iv IMIPENEM 500 MG EVERY 8 HOURLY 07/04/17. Follow-up CT chest abdomen and pelvis with IV contrast as ordered To rule out hydronephrosis and renal calculi./hILAR MASS. Objective - Vital Signs/Intake and Output Vital Signs (last 24 hours): Temp Pulse Resp BP Pulse Ox 98.6 F 76 20 148/71 96 07/06/17 15:00 07/06/17 15:00 07/06/17 15:00 07/06/17 15:00 07/06/17 15:00 - Medications Medications: Current Medications Enalapril Maleate (Vasotec) 5 mg PO DAILY [facility] Last Admin: 07/06/17 09:22 Dose: 5 mg Enoxaparin Sodium (Lovenox) 40 mg SC DAILY [facility] Last Admin: 07/06/17 09:23 Dose: 40 mg Glipizide (Glucotrol Xl) 2.5 mg PO ACBD [facility] Last Admin: 07/06/17 17:46 Dose: Not Given Imipenem/Cilastatin Sodium 500 (mg/ Sodium Chloride) 100 mls @ 100 mls/hr IVPB Q8H [facility] Last Admin: 07/06/17 14:01 Dose: 100 mls/hr Insulin Human Regular (Novolin R) 0 unit SC ACHS [facility] PRN Reason: Protocol Last Admin: 07/06/17 16:57 Dose: Not Given Metformin HCl (Glucophage) 500 mg PO BID [facility] Last Admin: 07/05/17 17:14 Dose: Not Given Pantoprazole Sodium (Protonix Ec Tab) 40 mg PO DAILY [facility] Last Admin: 07/06/17 09:22 Dose: 40 mg - Labs Labs: 07/05/17 07:45 07/05/17 07:45 PT 13.0 SECONDS (9.7-12.2) H 07/01/17 23:24 INR 1.2 07/01/17 23:24 APTT 27 SECONDS (21-34) 07/01/17 23:24 Assessment and Plan (1) Change in mental status Status: Acute (2) UTI (urinary tract infection) Status: Acute (3) Ureteral calculus, left Status: Acute (4) Hydronephrosis, left Status: Acute (5) Falls frequently Status: Acute (6) COPD (chronic obstructive pulmonary disease) Status: Acute
[2017-07-07] MEDS: GlipiZIDE 2.5 mg SR Tab PO SCH ×2 (09:48→17:41)
[2017-07-07] MEDS: Pantoprazole 40 mg EC Tab PO SCH (09:49)
[2017-07-07] MEDS: (Novolin R) Insulin Human Regular 100 units/ml vial SC SCH ×4 (09:50→21:45)
[2017-07-07] MEDS: Enoxaparin 40 mg Syringe SC SCH (09:50)
--- NOTE | 2017-07-07 14:09 | CP.PCM.PN ---
Subjective - Date & Time of Evaluation Date of Evaluation: 07/07/17 Time of Evaluation: 14:08 - Subjective Subjective: CHIEF COMPLAINTS TODAY : NO SP. COMPLAINTS ROS. PT. NOT ANSWERING PE. Pt. is alert awake in no distress. V.S As noted in the chart Head ,ear nose,throat and eyes : Normal. Neck : Supple with normal carotids. Lungs: Clear air entry. Heart : S1 & S2 normal with S4. No murmur. Abd : Soft non tender with normal bowel sounds. Neuro : Moves all ext. with no localized deficit. Ext : No edema with intact pulses.Non tender calves Derm : No rashes or decubitus ulcer. LABS/RADIOLOGY: CTABD/CHEST , NOTHING ACUTE ASSESSMENT/PLAN : FOR PLACEMENT IV AB FOR UTI Objective - Vital Signs/Intake and Output Vital Signs (last 24 hours): Temp Pulse Resp BP Pulse Ox 97.4 F L 68 20 130/80 97 07/07/17 08:00 07/07/17 08:00 07/07/17 08:00 07/07/17 09:54 07/07/17 08:00 Intake and Output: 07/07/17 07/07/17 11:59 23:59 Intake Total 220 Balance 220 - Medications Medications: Current Medications Enalapril Maleate (Vasotec) 5 mg PO DAILY [facility] Last Admin: 07/07/17 09:48 Dose: 5 mg Enoxaparin Sodium (Lovenox) 40 mg SC DAILY [facility] Last Admin: 07/07/17 09:50 Dose: 40 mg Glipizide (Glucotrol Xl) 2.5 mg PO ACBD [facility] Last Admin: 07/07/17 09:48 Dose: 2.5 mg Imipenem/Cilastatin Sodium 500 (mg/ Sodium Chloride) 100 mls @ 100 mls/hr IVPB Q8H [facility] Last Admin: 07/07/17 13:53 Dose: 100 mls/hr Insulin Human Regular (Novolin R) 0 unit SC ACHS [facility] PRN Reason: Protocol Last Admin: 07/07/17 12:02 Dose: 3 unit Metformin HCl (Glucophage) 500 mg PO BID [facility] Last Admin: 07/05/17 17:14 Dose: Not Given Pantoprazole Sodium (Protonix Ec Tab) 40 mg PO DAILY [facility] Last Admin: 07/07/17 09:49 Dose: 40 mg - Labs Labs: 07/05/17 07:45 07/05/17 07:45 PT 13.0 SECONDS (9.7-12.2) H 07/01/17 23:24 INR 1.2 07/01/17 23:24 APTT 27 SECONDS (21-34) 07/01/17 23:24
[2017-07-08] MEDS: (Novolin R) Insulin Human Regular 100 units/ml vial SC SCH ×4 (08:43→22:10)
[2017-07-08] MEDS: Pantoprazole 40 mg EC Tab PO SCH (09:31)
[2017-07-08] MEDS: GlipiZIDE 2.5 mg SR Tab PO SCH ×2 (09:31→17:10)
[2017-07-08] MEDS: Enoxaparin 40 mg Syringe SC SCH (09:34)
--- NOTE | 2017-07-08 13:36 | CP.PCM.PN ---
Subjective - Date & Time of Evaluation Date of Evaluation: 07/08/17 Time of Evaluation: 13:36 - Subjective Subjective: CHIEF COMPLAINTS TODAY : NO SP. COMPLAINTS ROS. PT. NOT ANSWERING PE. Pt. is alert awake in no distress. V.S As noted in the chart Head ,ear nose,throat and eyes : Normal. Neck : Supple with normal carotids. Lungs: Clear air entry. Heart : S1 & S2 normal with S4. No murmur. Abd : Soft non tender with normal bowel sounds. Neuro : Moves all ext. with no localized deficit. Ext : No edema with intact pulses.Non tender calves Derm : No rashes or decubitus ulcer. LABS/RADIOLOGY: CTABD/CHEST , NOTHING ACUTE ASSESSMENT/PLAN : FOR PLACEMENT IV AB FOR UTI Objective - Vital Signs/Intake and Output Vital Signs (last 24 hours): Temp Pulse Resp BP Pulse Ox 98.5 F 70 19 135/67 98 07/08/17 08:00 07/08/17 08:00 07/08/17 08:00 07/08/17 09:32 07/08/17 08:00 Intake and Output: 07/08/17 07/08/17 11:59 23:59 Intake Total 220 Balance 220 - Medications Medications: Current Medications Enalapril Maleate (Vasotec) 5 mg PO DAILY [facility] Last Admin: 07/08/17 09:32 Dose: 5 mg Enoxaparin Sodium (Lovenox) 40 mg SC DAILY [facility] Last Admin: 07/08/17 09:34 Dose: 40 mg Glipizide (Glucotrol Xl) 2.5 mg PO ACBD [facility] Last Admin: 07/08/17 09:31 Dose: 2.5 mg Imipenem/Cilastatin Sodium 500 (mg/ Sodium Chloride) 100 mls @ 100 mls/hr IVPB Q8H [facility] Last Admin: 07/08/17 05:43 Dose: 100 mls/hr Insulin Human Regular (Novolin R) 0 unit SC ACHS [facility] PRN Reason: Protocol Last Admin: 07/08/17 12:47 Dose: 6 unit Metformin HCl (Glucophage) 500 mg PO BID [facility] Last Admin: 07/08/17 09:32 Dose: 500 mg Pantoprazole Sodium (Protonix Ec Tab) 40 mg PO DAILY [facility] Last Admin: 07/08/17 09:31 Dose: 40 mg - Labs Labs: 07/05/17 07:45 07/05/17 07:45 PT 13.0 SECONDS (9.7-12.2) H 07/01/17 23:24 INR 1.2 07/01/17 23:24 APTT 27 SECONDS (21-34) 07/01/17 23:24
[2017-07-08 16:39] VITALS: RESP 20
--- NOTE | 2017-07-08 23:26 | CP.PCM.PN ---
Subjective - Date & Time of Evaluation Date of Evaluation: 07/08/17 Time of Evaluation: 23:25 - Subjective Subjective: CHIEF COMPLAINTS TODAY : AFEBRILE Offers no new complaints. Intermittent incontinence. ROS. DENIES SHORTNESS OF BREATH OR COUGH dENIES CHEST PAIN dENIES ABDOMINAL PAIN. dENIES HEADACHE OR VISUAL PROBLEMS. PE. Pt. is alert awake in no distress. V.S As noted in the chart Head ,ear nose,throat and eyes : Normal. Neck : Supple with normal carotids. Lungs: Clear air entry. Heart : S1 & S2 normal with S4. No murmur. Abd : Soft non tender with normal bowel sounds. Neuro : Moves all ext. with no localized deficit. Ext : No edema with intact pulses.Non tender calves Derm : No rashes or decubitus ulcer. LABS/RADIOLOGY: urine culture 07/02/[address] chest abdomen and pelvis with IV contrast as ordered NOTED NO EVIDENCE OF HYDRONEPHROSIS, RENAL CALCULI, OR HILAR MASS. ASSESSMENT/PLAN : patient to continue IV antibiotics. CONTINUE iv IMIPENEM 500 MG EVERY 8 HOURLY 07/04/17. PATIENT AWAITING DISPOSITION. Objective - Vital Signs/Intake and Output Vital Signs (last 24 hours): Temp Pulse Resp BP Pulse Ox 97.6 F 76 20 111/63 97 07/08/17 15:00 07/08/17 15:00 07/08/17 15:00 07/08/17 15:00 07/08/17 15:00 Intake and Output: 07/08/17 07/09/17 18:59 06:59 Intake Total 250 Balance 250 - Medications Medications: Current Medications Enalapril Maleate (Vasotec) 5 mg PO DAILY [facility] Last Admin: 07/08/17 09:32 Dose: 5 mg Enoxaparin Sodium (Lovenox) 40 mg SC DAILY [facility] Last Admin: 07/08/17 09:34 Dose: 40 mg Glipizide (Glucotrol Xl) 2.5 mg PO ACBD [facility] Last Admin: 07/08/17 17:10 Dose: 2.5 mg Imipenem/Cilastatin Sodium 500 (mg/ Sodium Chloride) 100 mls @ 100 mls/hr IVPB Q8H [facility] Last Admin: 07/08/17 21:17 Dose: 100 mls/hr Insulin Human Regular (Novolin R) 0 unit SC ACHS [facility] PRN Reason: Protocol Last Admin: 07/08/17 22:10 Dose: Not Given Metformin HCl (Glucophage) 500 mg PO BID [facility] Last Admin: 07/08/17 18:20 Dose: 500 mg Pantoprazole Sodium (Protonix Ec Tab) 40 mg PO DAILY [facility] Last Admin: 07/08/17 09:31 Dose: 40 mg - Labs Labs: 07/05/17 07:45 07/05/17 07:45 PT 13.0 SECONDS (9.7-12.2) H 07/01/17 23:24 INR 1.2 07/01/17 23:24 APTT 27 SECONDS (21-34) 07/01/17 23:24 Assessment and Plan (1) Change in mental status Status: Acute (2) UTI (urinary tract infection) Status: Acute (3) Ureteral calculus, left Status: Acute (4) Hydronephrosis, left Status: Acute (5) Falls frequently Status: Acute (6) COPD (chronic obstructive pulmonary disease) Status: Acute
[2017-07-09] MEDS: (Novolin R) Insulin Human Regular 100 units/ml vial SC SCH ×4 (07:55→21:24)
[2017-07-09] MEDS: GlipiZIDE 2.5 mg SR Tab PO SCH ×2 (08:41→17:15)
[2017-07-09] MEDS: Pantoprazole 40 mg EC Tab PO SCH ×2 (08:41→10:57)
[2017-07-09] MEDS: Enoxaparin 40 mg Syringe SC SCH ×2 (08:42→10:57)
--- NOTE | 2017-07-09 13:42 | CP.PCM.PN ---
Subjective - Date & Time of Evaluation Date of Evaluation: 07/09/17 Time of Evaluation: 13:42 - Subjective Subjective: CHIEF COMPLAINTS TODAY : NO SP. COMPLAINTS ROS. PT. NOT ANSWERING PE. Pt. is alert awake in no distress. V.S As noted in the chart Head ,ear nose,throat and eyes : Normal. Neck : Supple with normal carotids. Lungs: Clear air entry. Heart : S1 & S2 normal with S4. No murmur. Abd : Soft non tender with normal bowel sounds. Neuro : Moves all ext. with no localized deficit. Ext : No edema with intact pulses.Non tender calves Derm : No rashes or decubitus ulcer. LABS/RADIOLOGY: CTABD/CHEST , NOTHING ACUTE ASSESSMENT/PLAN : FOR PLACEMENT IV AB FOR UTI Objective - Vital Signs/Intake and Output Vital Signs (last 24 hours): Temp Pulse Resp BP Pulse Ox 97.4 F L 72 20 137/81 97 07/09/17 08:00 07/09/17 08:00 07/09/17 08:00 07/09/17 08:42 07/09/17 08:00 Intake and Output: 07/09/17 07/09/17 11:59 23:59 Intake Total 500 Balance 500 - Medications Medications: Current Medications Enalapril Maleate (Vasotec) 5 mg PO DAILY [facility] Last Admin: 07/09/17 10:58 Dose: Not Given Glipizide (Glucotrol Xl) 2.5 mg PO ACBD [facility] Last Admin: 07/09/17 08:41 Dose: 2.5 mg Imipenem/Cilastatin Sodium 500 (mg/ Sodium Chloride) 100 mls @ 100 mls/hr IVPB Q8H [facility] Last Admin: 07/09/17 13:30 Dose: 100 mls/hr Insulin Human Regular (Novolin R) 0 unit SC ACHS [facility] PRN Reason: Protocol Last Admin: 07/09/17 13:34 Dose: 4 unit Metformin HCl (Glucophage) 500 mg PO BID [facility] Last Admin: 07/09/17 10:57 Dose: Not Given Pantoprazole Sodium (Protonix Ec Tab) 40 mg PO DAILY [facility] Last Admin: 07/09/17 10:57 Dose: Not Given - Labs Labs: 07/05/17 07:45 07/05/17 07:45 PT 13.0 SECONDS (9.7-12.2) H 07/01/17 23:24 INR 1.2 07/01/17 23:24 APTT 27 SECONDS (21-34) 07/01/17 23:24
--- NOTE | 2017-07-09 22:35 | CP.PCM.PN ---
Subjective - Date & Time of Evaluation Date of Evaluation: 07/09/17 Time of Evaluation: 22:35 - Subjective Subjective: CHIEF COMPLAINTS TODAY : AFEBRILE Offers no new complaints. ROS. DENIES SHORTNESS OF BREATH OR COUGH dENIES CHEST PAIN dENIES ABDOMINAL PAIN. dENIES HEADACHE OR VISUAL PROBLEMS. PE. Pt. is alert awake in no distress. V.S As noted in the chart Head ,ear nose,throat and eyes : Normal. Neck : Supple with normal carotids. Lungs: Clear air entry. Heart : S1 & S2 normal with S4. No murmur. Abd : Soft non tender with normal bowel sounds. Neuro : Moves all ext. with no localized deficit. Ext : No edema with intact pulses.Non tender calves Derm : No rashes or decubitus ulcer. LABS/RADIOLOGY: urine culture 07/02/[address] chest abdomen and pelvis with IV contrast as ordered NOTED NO EVIDENCE OF HYDRONEPHROSIS, RENAL CALCULI, OR HILAR MASS. ASSESSMENT/PLAN : patient to continue IV antibiotics. CONTINUE iv IMIPENEM 500 MG EVERY 8 HOURLY 07/04/17. PATIENT AWAITING DISPOSITION. Objective - Vital Signs/Intake and Output Vital Signs (last 24 hours): Temp Pulse Resp BP Pulse Ox 98.8 F 71 20 115/75 97 07/09/17 15:00 07/09/17 15:00 07/09/17 15:00 07/09/17 15:00 07/09/17 15:00 Intake and Output: 07/09/17 07/10/17 18:59 06:59 Intake Total 400 Balance 400 - Medications Medications: Current Medications Enalapril Maleate (Vasotec) 5 mg PO DAILY [facility] Last Admin: 07/09/17 10:58 Dose: Not Given Glipizide (Glucotrol Xl) 2.5 mg PO ACBD [facility] Last Admin: 07/09/17 17:15 Dose: 2.5 mg Imipenem/Cilastatin Sodium 500 (mg/ Sodium Chloride) 100 mls @ 100 mls/hr IVPB Q8H [facility] Last Admin: 07/09/17 21:45 Dose: 100 mls/hr Insulin Human Regular (Novolin R) 0 unit SC ACHS [facility] PRN Reason: Protocol Last Admin: 07/09/17 21:24 Dose: Not Given Metformin HCl (Glucophage) 500 mg PO BID [facility] Last Admin: 07/09/17 17:16 Dose: Not Given Pantoprazole Sodium (Protonix Ec Tab) 40 mg PO DAILY [facility] Last Admin: 07/09/17 10:57 Dose: Not Given - Labs Labs: 07/05/17 07:45 07/05/17 07:45 PT 13.0 SECONDS (9.7-12.2) H 07/01/17 23:24 INR 1.2 07/01/17 23:24 APTT 27 SECONDS (21-34) 07/01/17 23:24 Assessment and Plan (1) Change in mental status Status: Acute (2) UTI (urinary tract infection) Status: Acute (3) Ureteral calculus, left Status: Acute (4) Hydronephrosis, left Status: Acute (5) Falls frequently Status: Acute (6) COPD (chronic obstructive pulmonary disease) Status: Acute
[2017-07-10] MEDS: (Novolin R) Insulin Human Regular 100 units/ml vial SC SCH ×3 (07:58→17:18)
[2017-07-10] MEDS: GlipiZIDE 2.5 mg SR Tab PO SCH ×2 (08:35→17:18)
[2017-07-10] MEDS: Pantoprazole 40 mg EC Tab PO SCH (09:01)
--- NOTE | 2017-07-10 13:37 | CP.PCM.PN ---
Subjective - Date & Time of Evaluation Date of Evaluation: 07/10/17 Time of Evaluation: 13:37 - Subjective Subjective: CHIEF COMPLAINTS TODAY : NO SP. COMPLAINTS ROS. PT. NOT ANSWERING PE. Pt. is alert awake in no distress. V.S As noted in the chart Head ,ear nose,throat and eyes : Normal. Neck : Supple with normal carotids. Lungs: Clear air entry. Heart : S1 & S2 normal with S4. No murmur. Abd : Soft non tender with normal bowel sounds. Neuro : Moves all ext. with no localized deficit. Ext : No edema with intact pulses.Non tender calves Derm : No rashes or decubitus ulcer. LABS/RADIOLOGY: CTABD/CHEST , NOTHING ACUTE ASSESSMENT/PLAN : FOR PLACEMENT IV AB FOR UTI Objective - Vital Signs/Intake and Output Vital Signs (last 24 hours): Temp Pulse Resp BP Pulse Ox 98.7 F 78 20 110/60 96 07/10/17 08:00 07/10/17 08:00 07/10/17 08:00 07/10/17 09:02 07/10/17 08:00 - Medications Medications: Current Medications Enalapril Maleate (Vasotec) 5 mg PO DAILY [facility] Last Admin: 07/10/17 09:02 Dose: 5 mg Glipizide (Glucotrol Xl) 2.5 mg PO ACBD [facility] Last Admin: 07/10/17 08:35 Dose: 2.5 mg Imipenem/Cilastatin Sodium 500 (mg/ Sodium Chloride) 100 mls @ 100 mls/hr IVPB Q8H [facility] Last Admin: 07/10/17 06:34 Dose: 100 mls/hr Insulin Human Regular (Novolin R) 0 unit SC ACHS [facility] PRN Reason: Protocol Last Admin: 07/10/17 12:22 Dose: Not Given Metformin HCl (Glucophage) 500 mg PO BID [facility] Last Admin: 07/10/17 09:01 Dose: 500 mg Pantoprazole Sodium (Protonix Ec Tab) 40 mg PO DAILY [facility] Last Admin: 07/10/17 09:01 Dose: 40 mg - Labs Labs: 07/05/17 07:45 07/05/17 07:45 PT 13.0 SECONDS (9.7-12.2) H 07/01/17 23:24 INR 1.2 07/01/17 23:24 APTT 27 SECONDS (21-34) 07/01/17 23:24
[2017-07-11] MEDS: (Novolin R) Insulin Human Regular 100 units/ml vial SC SCH ×4 (07:34→22:05)
[2017-07-11] MEDS: GlipiZIDE 2.5 mg SR Tab PO SCH ×3 (07:35→16:49)
[2017-07-11] MEDS: Pantoprazole 40 mg EC Tab PO SCH (11:00)
--- NOTE | 2017-07-11 14:06 | CP.PCM.PN ---
Subjective - Date & Time of Evaluation Date of Evaluation: 07/11/17 Time of Evaluation: 14:06 - Subjective Subjective: CHIEF COMPLAINTS TODAY : NO SP. COMPLAINTS ROS. PT. NOT ANSWERING PE. Pt. is alert awake in no distress. V.S As noted in the chart Head ,ear nose,throat and eyes : Normal. Neck : Supple with normal carotids. Lungs: Clear air entry. Heart : S1 & S2 normal with S4. No murmur. Abd : Soft non tender with normal bowel sounds. Neuro : Moves all ext. with no localized deficit. Ext : No edema with intact pulses.Non tender calves Derm : No rashes or decubitus ulcer. LABS/RADIOLOGY: CTABD/CHEST , NOTHING ACUTE ASSESSMENT/PLAN : FOR PLACEMENT IV AB FOR UTI Objective - Vital Signs/Intake and Output Vital Signs (last 24 hours): Temp Pulse Resp BP Pulse Ox 97.6 F 65 20 134/84 97 07/11/17 08:00 07/11/17 08:00 07/11/17 08:00 07/11/17 11:00 07/11/17 08:00 Intake and Output: 07/11/17 07/11/17 11:59 23:59 Intake Total 220 Balance 220 - Medications Medications: Current Medications Enalapril Maleate (Vasotec) 5 mg PO DAILY [facility] Last Admin: 07/11/17 11:00 Dose: 5 mg Glipizide (Glucotrol Xl) 2.5 mg PO ACBD [facility] Last Admin: 07/11/17 11:00 Dose: 2.5 mg Imipenem/Cilastatin Sodium 500 (mg/ Sodium Chloride) 100 mls @ 100 mls/hr IVPB Q8H [facility] Last Admin: 07/11/17 05:10 Dose: 100 mls/hr Insulin Human Regular (Novolin R) 0 unit SC ACHS [facility] PRN Reason: Protocol Last Admin: 07/11/17 12:00 Dose: Not Given Metformin HCl (Glucophage) 500 mg PO BID [facility] Last Admin: 07/11/17 11:00 Dose: 500 mg Pantoprazole Sodium (Protonix Ec Tab) 40 mg PO DAILY [facility] Last Admin: 07/11/17 11:00 Dose: 40 mg - Labs Labs: 07/05/17 07:45 07/05/17 07:45 PT 13.0 SECONDS (9.7-12.2) H 07/01/17 23:24 INR 1.2 07/01/17 23:24 APTT 27 SECONDS (21-34) 07/01/17 23:24
--- NOTE | 2017-07-11 22:26 | CP.PCM.PN ---
Subjective - Date & Time of Evaluation Date of Evaluation: 07/11/17 Time of Evaluation: 22:25 - Subjective Subjective: CHIEF COMPLAINTS TODAY : AFEBRILE Offers no new complaints. ROS. DENIES SHORTNESS OF BREATH OR COUGH dENIES CHEST PAIN dENIES ABDOMINAL PAIN. dENIES HEADACHE OR VISUAL PROBLEMS. PE. Pt. is alert awake in no distress. V.S As noted in the chart Head ,ear nose,throat and eyes : Normal. Neck : Supple with normal carotids. Lungs: Clear air entry. Heart : S1 & S2 normal with S4. No murmur. Abd : Soft non tender with normal bowel sounds. Neuro : Moves all ext. with no localized deficit. Ext : No edema with intact pulses.Non tender calves Derm : No rashes or decubitus ulcer. LABS/RADIOLOGY: urine culture 07/02/[address] positive [address] chest abdomen and pelvis with IV contrast as ordered NOTED NO EVIDENCE OF HYDRONEPHROSIS, RENAL CALCULI, OR HILAR MASS. ASSESSMENT/PLAN : patient to continue IV antibiotics. CONTINUE iv IMIPENEM 500 MG EVERY 8 HOURLY 07/04/17.-DAY 8 X2DAYS MORE PER PMD. Objective - Vital Signs/Intake and Output Vital Signs (last 24 hours): Temp Pulse Resp BP Pulse Ox 98.3 F 85 20 143/79 96 07/11/17 15:00 07/11/17 15:00 07/11/17 15:00 07/11/17 15:00 07/11/17 15:00 - Medications Medications: Current Medications Enalapril Maleate (Vasotec) 5 mg PO DAILY [facility] Last Admin: 07/11/17 11:00 Dose: 5 mg Glipizide (Glucotrol Xl) 2.5 mg PO ACBD [facility] Last Admin: 07/11/17 16:49 Dose: 2.5 mg Imipenem/Cilastatin Sodium 500 (mg/ Sodium Chloride) 100 mls @ 100 mls/hr IVPB Q8H [facility] Last Admin: 07/11/17 21:29 Dose: 100 mls/hr Insulin Human Regular (Novolin R) 0 unit SC ACHS [facility] PRN Reason: Protocol Last Admin: 07/11/17 22:05 Dose: Not Given Metformin HCl (Glucophage) 500 mg PO BID [facility] Last Admin: 07/11/17 18:01 Dose: 500 mg Pantoprazole Sodium (Protonix Ec Tab) 40 mg PO DAILY [facility] Last Admin: 07/11/17 11:00 Dose: 40 mg - Labs Labs: 07/05/17 07:45 07/05/17 07:45 PT 13.0 SECONDS (9.7-12.2) H 07/01/17 23:24 INR 1.2 07/01/17 23:24 APTT 27 SECONDS (21-34) 07/01/17 23:24 Assessment and Plan (1) Change in mental status Status: Acute (2) UTI (urinary tract infection) Status: Acute (3) Ureteral calculus, left Status: Acute (4) Hydronephrosis, left Status: Acute (5) Falls frequently Status: Acute (6) COPD (chronic obstructive pulmonary disease) Status: Acute
[2017-07-12] MEDS: (Novolin R) Insulin Human Regular 100 units/ml vial SC SCH ×4 (07:52→22:04)
[2017-07-12] MEDS: GlipiZIDE 2.5 mg SR Tab PO SCH ×2 (08:25→16:30)
[2017-07-12 08:52] LABS: BASO % 0.5 % (0.0-2.0); EOS # 0.4 K/uL (0.0-0.7); EOS % 4.9 % (0.0-4.0); HEMATOCRIT 32.5 % (34.0-47.0); LYMPH # 1.7 K/uL (1.0-4.3); LYMPH % 23.7 % (20.0-40.0); MEAN CELL VOLUME 86.1 fL (81.0-99.0); MEAN CORPUSCULAR HEMOGLOBIN 29.2 pg (27.0-31.0); MEAN CORPUSCULAR HGB CONC 33.9 g/dL (33.0-37.0); MEAN PLATELET VOLUME 7.3 fL (7.2-11.7); MONO # 0.5 K/uL (0.0-0.8); MONO % 7.1 % (0.0-10.0); NRBC % 0.1 % (0.0-2.0); WHITE BLOOD COUNT 7.3 K/uL (4.8-10.8)
[2017-07-12 08:57] LABS: CHLORIDE 101 mmol/L (98-107)
[2017-07-12 08:58] LABS: POTASSIUM 3.8 mmol/L (3.6-5.2); SODIUM 137 mmol/L (132-148)
[2017-07-12 09:01] LABS: ALKALINE PHOSPHATASE 94 U/L (38-126); ALT/SGPT 21 U/L (9-52); AST/SGOT 15 U/L (14-36); BILIRUBIN,DIRECT 0.4 mg/dL (0.0-0.4); BILIRUBIN,TOTAL 0.7 mg/dL (0.2-1.3); BLOOD UREA NITROGEN 16 mg/dL (7-17); CARBON DIOXIDE 25 mmol/L (22-30); GFR AFRICAN-AMERICAN > 60; GLUCOSE,RANDOM 106 mg/dL (65-105)
[2017-07-12] MEDS: Pantoprazole 40 mg EC Tab PO SCH (11:24)
--- NOTE | 2017-07-12 13:37 | CP.PCM.PN ---
Subjective - Date & Time of Evaluation Date of Evaluation: 07/12/17 Time of Evaluation: 13:37 - Subjective Subjective: CHIEF COMPLAINTS TODAY : NO SP. COMPLAINTS ROS. PT. NOT ANSWERING PE. Pt. is alert awake in no distress. V.S As noted in the chart Head ,ear nose,throat and eyes : Normal. Neck : Supple with normal carotids. Lungs: Clear air entry. Heart : S1 & S2 normal with S4. No murmur. Abd : Soft non tender with normal bowel sounds. Neuro : Moves all ext. with no localized deficit. Ext : No edema with intact pulses.Non tender calves Derm : No rashes or decubitus ulcer. LABS/RADIOLOGY: CTABD/CHEST , NOTHING ACUTE ASSESSMENT/PLAN : FOR PLACEMENT IV AB FOR UTI Objective - Vital Signs/Intake and Output Vital Signs (last 24 hours): Temp Pulse Resp BP Pulse Ox 98.3 F 85 20 128/78 100 07/12/17 07:43 07/12/17 07:43 07/12/17 07:43 07/12/17 11:25 07/12/17 07:43 Intake and Output: 07/12/17 07/12/17 11:59 23:59 Intake Total 300 Balance 300 - Medications Medications: Current Medications Enalapril Maleate (Vasotec) 5 mg PO DAILY [facility] Last Admin: 07/12/17 11:25 Dose: 5 mg Glipizide (Glucotrol Xl) 2.5 mg PO ACBD [facility] Last Admin: 07/12/17 08:25 Dose: 2.5 mg Imipenem/Cilastatin Sodium 500 (mg/ Sodium Chloride) 100 mls @ 100 mls/hr IVPB Q8H [facility] Last Admin: 07/12/17 13:11 Dose: 100 mls/hr Insulin Human Regular (Novolin R) 0 unit SC ACHS [facility] PRN Reason: Protocol Last Admin: 07/12/17 13:03 Dose: Not Given Metformin HCl (Glucophage) 500 mg PO BID [facility] Last Admin: 07/12/17 11:23 Dose: Not Given Pantoprazole Sodium (Protonix Ec Tab) 40 mg PO DAILY [facility] Last Admin: 07/12/17 11:24 Dose: 40 mg - Labs Labs: 07/12/17 08:36 07/12/17 08:36 PT 13.0 SECONDS (9.7-12.2) H 07/01/17 23:24 INR 1.2 07/01/17 23:24 APTT 27 SECONDS (21-34) 07/01/17 23:24
--- NOTE | 2017-07-12 19:49 | CP.PCM.PN ---
Subjective - Date & Time of Evaluation Date of Evaluation: 07/12/17 Time of Evaluation: 19:49 - Subjective Subjective: CHIEF COMPLAINTS TODAY : AFEBRILE Offers no new complaints. ROS. patient refused to answer PE. Pt. is alert awake in no distress. V.S As noted in the chart Head ,ear nose,throat and eyes : Normal. Neck : Supple with normal carotids. Lungs: Clear air entry. Heart : S1 & S2 normal with S4. No murmur. Abd : Soft non tender with normal bowel sounds. Neuro : Moves all ext. with no localized deficit. Ext : No edema with intact pulses.Non tender calves Derm : No rashes or decubitus ulcer. LABS/RADIOLOGY: urine culture 07/02/[address] positive for [address] chest abdomen and pelvis with IV contrast as ordered NOTED NO EVIDENCE OF HYDRONEPHROSIS, RENAL CALCULI, OR HILAR MASS. ASSESSMENT/PLAN : patient to continue IV antibiotics. CONTINUE iv IMIPENEM 500 MG EVERY 8 HOURLY 07/04/17.-DAY 9 X 1DAY MORE PER PMD. Objective - Vital Signs/Intake and Output Vital Signs (last 24 hours): Temp Pulse Resp BP Pulse Ox 98.1 F 87 20 131/69 96 07/12/17 16:00 07/12/17 16:00 07/12/17 16:00 07/12/17 16:00 07/12/17 16:00 - Medications Medications: Current Medications Enalapril Maleate (Vasotec) 5 mg PO DAILY [facility] Last Admin: 07/12/17 11:25 Dose: 5 mg Glipizide (Glucotrol Xl) 2.5 mg PO ACBD [facility] Last Admin: 07/12/17 16:30 Dose: 2.5 mg Imipenem/Cilastatin Sodium 500 (mg/ Sodium Chloride) 100 mls @ 100 mls/hr IVPB Q8H [facility] Last Admin: 07/12/17 13:11 Dose: 100 mls/hr Insulin Human Regular (Novolin R) 0 unit SC ACHS [facility] PRN Reason: Protocol Last Admin: 07/12/17 16:30 Dose: Not Given Metformin HCl (Glucophage) 500 mg PO BID [facility] Last Admin: 07/12/17 17:36 Dose: 500 mg Pantoprazole Sodium (Protonix Ec Tab) 40 mg PO DAILY [facility] Last Admin: 07/12/17 11:24 Dose: 40 mg - Labs Labs: 07/12/17 08:36 07/12/17 08:36 PT 13.0 SECONDS (9.7-12.2) H 07/01/17 23:24 INR 1.2 07/01/17 23:24 APTT 27 SECONDS (21-34) 07/01/17 23:24 Assessment and Plan (1) Change in mental status Status: Acute (2) UTI (urinary tract infection) Status: Acute (3) Ureteral calculus, left Status: Acute (4) Hydronephrosis, left Status: Acute (5) Falls frequently Status: Acute (6) COPD (chronic obstructive pulmonary disease) Status: Acute
[2017-07-13] MEDS: (Novolin R) Insulin Human Regular 100 units/ml vial SC SCH ×4 (08:03→22:10)
[2017-07-13] MEDS: GlipiZIDE 2.5 mg SR Tab PO SCH ×2 (08:06→17:10)
[2017-07-13] MEDS: Pantoprazole 40 mg EC Tab PO SCH (09:40)
--- NOTE | 2017-07-13 12:06 | CP.PCM.PN ---
Subjective - Date & Time of Evaluation Date of Evaluation: 07/13/17 Time of Evaluation: 12:06 - Subjective Subjective: CHIEF COMPLAINTS TODAY : NO SP. COMPLAINTS ROS. PT. NOT ANSWERING PE. Pt. is alert awake in no distress. V.S As noted in the chart Head ,ear nose,throat and eyes : Normal. Neck : Supple with normal carotids. Lungs: Clear air entry. Heart : S1 & S2 normal with S4. No murmur. Abd : Soft non tender with normal bowel sounds. Neuro : Moves all ext. with no localized deficit. Ext : No edema with intact pulses.Non tender calves Derm : No rashes or decubitus ulcer. LABS/RADIOLOGY: CTABD/CHEST , NOTHING ACUTE ASSESSMENT/PLAN : FOR PLACEMENT IV AB FOR UTI Objective - Vital Signs/Intake and Output Vital Signs (last 24 hours): Temp Pulse Resp BP Pulse Ox 98.0 F 75 20 132/71 98 07/13/17 08:21 07/13/17 08:21 07/13/17 08:21 07/13/17 09:41 07/13/17 08:21 Intake and Output: 07/13/17 07/13/17 11:59 23:59 Intake Total 100 Balance 100 - Medications Medications: Current Medications Enalapril Maleate (Vasotec) 5 mg PO DAILY [facility] Last Admin: 07/13/17 09:41 Dose: 5 mg Glipizide (Glucotrol Xl) 2.5 mg PO ACBD [facility] Last Admin: 07/13/17 08:06 Dose: 2.5 mg Imipenem/Cilastatin Sodium 500 (mg/ Sodium Chloride) 100 mls @ 100 mls/hr IVPB Q8H [facility] Last Admin: 07/13/17 05:34 Dose: 100 mls/hr Insulin Human Regular (Novolin R) 0 unit SC ACHS [facility] PRN Reason: Protocol Last Admin: 07/13/17 08:03 Dose: Not Given Metformin HCl (Glucophage) 500 mg PO BID [facility] Last Admin: 07/13/17 09:40 Dose: 500 mg Pantoprazole Sodium (Protonix Ec Tab) 40 mg PO DAILY [facility] Last Admin: 07/13/17 09:40 Dose: 40 mg - Labs Labs: 07/12/17 08:36 07/12/17 08:36 PT 13.0 SECONDS (9.7-12.2) H 07/01/17 23:24 INR 1.2 07/01/17 23:24 APTT 27 SECONDS (21-34) 07/01/17 23:24
--- NOTE | 2017-07-13 21:52 | CP.PCM.PN ---
Subjective - Date & Time of Evaluation Date of Evaluation: 07/13/17 Time of Evaluation: 21:52 - Subjective Subjective: CHIEF COMPLAINTS TODAY : AFEBRILE Offers no new complaints. ROS. patient refused to answer PE. Pt. is alert awake in no distress. V.S As noted in the chart Head ,ear nose,throat and eyes : Normal. Neck : Supple with normal carotids. Lungs: Clear air entry. Heart : S1 & S2 normal with S4. No murmur. Abd : Soft non tender with normal bowel sounds. Neuro : Moves all ext. with no localized deficit. Ext : No edema with intact pulses.Non tender calves Derm : No rashes or decubitus ulcer. LABS/RADIOLOGY: urine culture 07/02/17 positive for [address]. CT chest abdomen and pelvis with IV contrast as ordered NOTED NO EVIDENCE OF HYDRONEPHROSIS, RENAL CALCULI, OR HILAR MASS. ASSESSMENT/PLAN : patient to continue IV antibiotics. CONTINUE iv IMIPENEM 500 MG EVERY 8 HOURLY 07/04/17.-DAY 10 PER PMD. PATIENT AWAITING DISPOSITION PER FAMILY. Objective - Vital Signs/Intake and Output Vital Signs (last 24 hours): Temp Pulse Resp BP Pulse Ox 98.6 F 70 20 132/83 96 07/13/17 15:00 07/13/17 15:00 07/13/17 15:00 07/13/17 15:00 07/13/17 15:00 Intake and Output: 07/13/17 07/14/17 18:59 06:59 Intake Total 650 Balance 650 - Medications Medications: Current Medications Enalapril Maleate (Vasotec) 5 mg PO DAILY [facility] Last Admin: 07/13/17 09:41 Dose: 5 mg Glipizide (Glucotrol Xl) 2.5 mg PO ACBD [facility] Last Admin: 07/13/17 17:10 Dose: 2.5 mg Imipenem/Cilastatin Sodium 500 (mg/ Sodium Chloride) 100 mls @ 100 mls/hr IVPB Q8H [facility] Last Admin: 07/13/17 21:19 Dose: 100 mls/hr Insulin Human Regular (Novolin R) 0 unit SC ACHS [facility] PRN Reason: Protocol Last Admin: 07/13/17 17:10 Dose: 2 unit Metformin HCl (Glucophage) 500 mg PO BID [facility] Last Admin: 07/13/17 18:50 Dose: 500 mg Pantoprazole Sodium (Protonix Ec Tab) 40 mg PO DAILY [facility] Last Admin: 07/13/17 09:40 Dose: 40 mg - Labs Labs: 07/12/17 08:36 07/12/17 08:36 PT 13.0 SECONDS (9.7-12.2) H 07/01/17 23:24 INR 1.2 07/01/17 23:24 APTT 27 SECONDS (21-34) 07/01/17 23:24 Assessment and Plan (1) Change in mental status Status: Acute (2) UTI (urinary tract infection) Status: Acute (3) Ureteral calculus, left Status: Acute (4) Hydronephrosis, left Status: Acute (5) Falls frequently Status: Acute (6) COPD (chronic obstructive pulmonary disease) Status: Acute
[2017-07-14] MEDS: (Novolin R) Insulin Human Regular 100 units/ml vial SC SCH ×5 (08:00→21:51)
[2017-07-14] MEDS: GlipiZIDE 2.5 mg SR Tab PO SCH ×2 (08:19→19:27)
[2017-07-14] MEDS: Pantoprazole 40 mg EC Tab PO SCH (10:15)
--- NOTE | 2017-07-14 15:01 | CP.PCM.PN ---
Subjective - Date & Time of Evaluation Date of Evaluation: 07/14/17 Time of Evaluation: 15:00 - Subjective Subjective: CHIEF COMPLAINTS TODAY : NO SP. COMPLAINTS ROS. PT. NOT ANSWERING PE. Pt. is alert awake in no distress. V.S As noted in the chart Head ,ear nose,throat and eyes : Normal. Neck : Supple with normal carotids. Lungs: Clear air entry. Heart : S1 & S2 normal with S4. No murmur. Abd : Soft non tender with normal bowel sounds. Neuro : Moves all ext. with no localized deficit. Ext : No edema with intact pulses.Non tender calves Derm : No rashes or decubitus ulcer. LABS/RADIOLOGY: CTABD/CHEST , NOTHING ACUTE ASSESSMENT/PLAN : FOR PLACEMENT IV AB FOR UTI Objective - Vital Signs/Intake and Output Vital Signs (last 24 hours): Temp Pulse Resp BP Pulse Ox 98.4 F 63 20 138/66 95 07/14/17 08:57 07/14/17 08:57 07/14/17 08:57 07/14/17 10:15 07/14/17 08:57 Intake and Output: 07/14/17 07/14/17 11:59 23:59 Intake Total 280 Balance 280 - Medications Medications: Current Medications Enalapril Maleate (Vasotec) 5 mg PO DAILY [facility] Last Admin: 07/14/17 10:15 Dose: 5 mg Glipizide (Glucotrol Xl) 2.5 mg PO ACBD [facility] Last Admin: 07/14/17 08:19 Dose: 2.5 mg Imipenem/Cilastatin Sodium 500 (mg/ Sodium Chloride) 100 mls @ 100 mls/hr IVPB Q8H [facility] Last Admin: 07/14/17 14:00 Dose: 100 mls/hr Insulin Human Regular (Novolin R) 0 unit SC ACHS [facility] PRN Reason: Protocol Last Admin: 07/14/17 11:55 Dose: 3 unit Metformin HCl (Glucophage) 500 mg PO BID [facility] Last Admin: 07/14/17 10:15 Dose: 500 mg Pantoprazole Sodium (Protonix Ec Tab) 40 mg PO DAILY [facility] Last Admin: 07/14/17 10:15 Dose: 40 mg - Labs Labs: 07/12/17 08:36 07/12/17 08:36 PT 13.0 SECONDS (9.7-12.2) H 07/01/17 23:24 INR 1.2 07/01/17 23:24 APTT 27 SECONDS (21-34) 07/01/17 23:24
[2017-07-15 06:31] LABS: BASO % 0.9 % (0.0-2.0); EOS # 0.3 K/uL (0.0-0.7); EOS % 5.1 % (0.0-4.0); HEMATOCRIT 31.9 % (34.0-47.0); LYMPH # 1.9 K/uL (1.0-4.3); LYMPH % 33.3 % (20.0-40.0); MEAN CORPUSCULAR HEMOGLOBIN 30.7 pg (27.0-31.0); MEAN CORPUSCULAR HGB CONC 35.7 g/dL (33.0-37.0); MEAN PLATELET VOLUME 6.9 fL (7.2-11.7); MONO # 0.4 K/uL (0.0-0.8); MONO % 7.4 % (0.0-10.0); NRBC % 0.1 % (0.0-2.0); RED CELL DISTRIBUTION WIDTH 14.1 % (11.5-14.5); WHITE BLOOD COUNT 5.7 K/uL (4.8-10.8)
[2017-07-15 06:46] LABS: ALB/GLOB RATIO 1.1 (1.0-2.1); ALKALINE PHOSPHATASE 92 U/L (38-126); ALT/SGPT 20 U/L (9-52); AST/SGOT 15 U/L (14-36); BILIRUBIN,TOTAL 0.5 mg/dL (0.2-1.3); BLOOD UREA NITROGEN 14 mg/dL (7-17); CALCIUM 9.5 mg/dl (8.6-10.4); CARBON DIOXIDE 29 mmol/L (22-30); CHLORIDE 99 mmol/L (98-107); GFR AFRICAN-AMERICAN > 60; GLUCOSE,RANDOM 83 mg/dL (65-105); POTASSIUM 3.5 mmol/L (3.6-5.2); SODIUM 139 mmol/L (132-148); TOTAL PROTEIN 7.1 g/dL (6.3-8.3)
[2017-07-15] MEDS: (Novolin R) Insulin Human Regular 100 units/ml vial SC SCH ×5 (08:18→21:21)
[2017-07-15] MEDS: GlipiZIDE 2.5 mg SR Tab PO SCH ×2 (08:21→16:35)
[2017-07-15] MEDS: Pantoprazole 40 mg EC Tab PO SCH (10:24)
--- NOTE | 2017-07-15 13:34 | CP.PCM.PN ---
Subjective - Date & Time of Evaluation Date of Evaluation: 07/15/17 Time of Evaluation: 13:34 - Subjective Subjective: CHIEF COMPLAINTS TODAY : NO SP. COMPLAINTS ROS. PT. NOT ANSWERING PE. Pt. is alert awake in no distress. V.S As noted in the chart Head ,ear nose,throat and eyes : Normal. Neck : Supple with normal carotids. Lungs: Clear air entry. Heart : S1 & S2 normal with S4. No murmur. Abd : Soft non tender with normal bowel sounds. Neuro : Moves all ext. with no localized deficit. Ext : No edema with intact pulses.Non tender calves Derm : No rashes or decubitus ulcer. LABS/RADIOLOGY: CTABD/CHEST , NOTHING ACUTE ASSESSMENT/PLAN : FOR PLACEMENT IV AB FOR UTI Objective - Vital Signs/Intake and Output Vital Signs (last 24 hours): Temp Pulse Resp BP Pulse Ox 98 F 81 20 133/75 96 07/15/17 08:17 07/15/17 08:17 07/15/17 08:17 07/15/17 10:24 07/15/17 08:17 Intake and Output: 07/15/17 07/15/17 11:59 23:59 Intake Total 300 Output Total 0 Balance 300 - Medications Medications: Current Medications Enalapril Maleate (Vasotec) 5 mg PO DAILY [facility] Last Admin: 07/15/17 10:24 Dose: 5 mg Glipizide (Glucotrol Xl) 2.5 mg PO ACBD [facility] Last Admin: 07/15/17 08:21 Dose: 2.5 mg Imipenem/Cilastatin Sodium 500 (mg/ Sodium Chloride) 100 mls @ 100 mls/hr IVPB Q8H [facility] Last Admin: 07/15/17 05:40 Dose: 100 mls/hr Insulin Human Regular (Novolin R) 0 unit SC ACHS [facility] PRN Reason: Protocol Last Admin: 07/15/17 08:18 Dose: Not Given Metformin HCl (Glucophage) 500 mg PO BID [facility] Last Admin: 07/15/17 10:24 Dose: 500 mg Pantoprazole Sodium (Protonix Ec Tab) 40 mg PO DAILY [facility] Last Admin: 07/15/17 10:24 Dose: 40 mg - Labs Labs: 07/15/17 06:16 07/15/17 06:16 PT 13.0 SECONDS (9.7-12.2) H 07/01/17 23:24 INR 1.2 07/01/17 23:24 APTT 27 SECONDS (21-34) 07/01/17 23:24
--- NOTE | 2017-07-15 14:06 | CP.PCM.PN ---
Subjective - Date & Time of Evaluation Date of Evaluation: 07/15/17 Time of Evaluation: 14:05 - Subjective Subjective: CHIEF COMPLAINTS TODAY : AFEBRILE Offers no new complaints. ROS. patient refused to answer PE. Pt. is alert awake in no distress. V.S As noted in the chart Head ,ear nose,throat and eyes : Normal. Neck : Supple with normal carotids. Lungs: Clear air entry. Heart : S1 & S2 normal with S4. No murmur. Abd : Soft non tender with normal bowel sounds. Neuro : Moves all ext. with no localized deficit. Ext : No edema with intact pulses.Non tender calves Derm : No rashes or decubitus ulcer. LABS/RADIOLOGY: WBC 5.7 h/h 11.4/31.9 lfts ok urine culture 07/02/[address] for [address] chest abdomen and pelvis with IV contrast as ordered NOTED NO EVIDENCE OF HYDRONEPHROSIS, RENAL CALCULI, OR HILAR MASS. ASSESSMENT/PLAN : patient to continue IV antibiotics. CONTINUE iv IMIPENEM 500 MG EVERY 8 HOURLY 07/04/17.-DAY 11 repeat UA urine culture clean catch today PER PMD. PATIENT AWAITING DISPOSITION PER FAMILY. Objective - Vital Signs/Intake and Output Vital Signs (last 24 hours): Temp Pulse Resp BP Pulse Ox 98 F 81 20 133/75 96 07/15/17 08:17 07/15/17 08:17 07/15/17 08:17 07/15/17 10:24 07/15/17 08:17 Intake and Output: 07/15/17 07/15/17 06:59 18:59 Intake Total 650 Output Total 0 Balance 650 - Medications Medications: Current Medications Enalapril Maleate (Vasotec) 5 mg PO DAILY [facility] Last Admin: 07/15/17 10:24 Dose: 5 mg Glipizide (Glucotrol Xl) 2.5 mg PO ACBD [facility] Last Admin: 07/15/17 08:21 Dose: 2.5 mg Imipenem/Cilastatin Sodium 500 (mg/ Sodium Chloride) 100 mls @ 100 mls/hr IVPB Q8H [facility] Last Admin: 07/15/17 05:40 Dose: 100 mls/hr Insulin Human Regular (Novolin R) 0 unit SC ACHS [facility] PRN Reason: Protocol Last Admin: 07/15/17 08:18 Dose: Not Given Metformin HCl (Glucophage) 500 mg PO BID [facility] Last Admin: 07/15/17 10:24 Dose: 500 mg Pantoprazole Sodium (Protonix Ec Tab) 40 mg PO DAILY [facility] Last Admin: 07/15/17 10:24 Dose: 40 mg - Labs Labs: 07/15/17 06:16 07/15/17 06:16 PT 13.0 SECONDS (9.7-12.2) H 07/01/17 23:24 INR 1.2 07/01/17 23:24 APTT 27 SECONDS (21-34) 07/01/17 23:24 Assessment and Plan (1) Change in mental status Status: Acute (2) UTI (urinary tract infection) Status: Acute (3) Ureteral calculus, left Status: Acute (4) Hydronephrosis, left Status: Acute (5) Falls frequently Status: Acute (6) COPD (chronic obstructive pulmonary disease) Status: Acute
[2017-07-16] MEDS: (Novolin R) Insulin Human Regular 100 units/ml vial SC SCH ×4 (08:26→21:20)
[2017-07-16] MEDS: GlipiZIDE 2.5 mg SR Tab PO SCH ×2 (08:29→17:53)
[2017-07-16] MEDS: Pantoprazole 40 mg EC Tab PO SCH (10:23)
--- NOTE | 2017-07-16 11:05 | CP.PCM.PN ---
Subjective - Date & Time of Evaluation Date of Evaluation: 07/16/17 Time of Evaluation: 11:04 - Subjective Subjective: CHIEF COMPLAINTS TODAY : NO SP. COMPLAINTS ROS. PT. NOT ANSWERING PE. Pt. is alert awake in no distress. V.S As noted in the chart Head ,ear nose,throat and eyes : Normal. Neck : Supple with normal carotids. Lungs: Clear air entry. Heart : S1 & S2 normal with S4. No murmur. Abd : Soft non tender with normal bowel sounds. Neuro : Moves all ext. with no localized deficit. Ext : No edema with intact pulses.Non tender calves Derm : No rashes or decubitus ulcer. LABS/RADIOLOGY: CTABD/CHEST , NOTHING ACUTE ASSESSMENT/PLAN : FOR PLACEMENT IV AB FOR UTI Objective - Vital Signs/Intake and Output Vital Signs (last 24 hours): Temp Pulse Resp BP Pulse Ox 98.4 F 77 20 138/73 96 07/16/17 07:43 07/16/17 07:43 07/16/17 07:43 07/16/17 10:23 07/16/17 07:43 Intake and Output: 07/15/17 07/16/17 23:59 11:59 Intake Total 600 300 Output Total 0 Balance 600 300 - Medications Medications: Current Medications Enalapril Maleate (Vasotec) 5 mg PO DAILY [facility] Last Admin: 07/16/17 10:23 Dose: 5 mg Glipizide (Glucotrol Xl) 2.5 mg PO ACBD [facility] Last Admin: 07/16/17 08:29 Dose: 2.5 mg Imipenem/Cilastatin Sodium 500 (mg/ Sodium Chloride) 100 mls @ 100 mls/hr IVPB Q8H [facility] Last Admin: 07/16/17 05:20 Dose: 100 mls/hr Insulin Human Regular (Novolin R) 0 unit SC ACHS [facility] PRN Reason: Protocol Last Admin: 07/16/17 08:26 Dose: Not Given Metformin HCl (Glucophage) 500 mg PO BID [facility] Last Admin: 07/16/17 10:23 Dose: 500 mg Pantoprazole Sodium (Protonix Ec Tab) 40 mg PO DAILY [facility] Last Admin: 07/16/17 10:23 Dose: 40 mg - Labs Labs: 07/15/17 06:16 07/15/17 06:16 PT 13.0 SECONDS (9.7-12.2) H 07/01/17 23:24 INR 1.2 07/01/17 23:24 APTT 27 SECONDS (21-34) 07/01/17 23:24
--- NOTE | 2017-07-16 20:18 | CP.PCM.PN ---
Subjective - Date & Time of Evaluation Date of Evaluation: 07/16/17 Time of Evaluation: 20:18 - Subjective Subjective: CHIEF COMPLAINTS TODAY : AFEBRILE Offers no new complaints. ROS. patient refused to answer PE. Pt. is alert awake in no distress. V.S As noted in the chart Head ,ear nose,throat and eyes : Normal. Neck : Supple with normal carotids. Lungs: Clear air entry. Heart : S1 & S2 normal with S4. No murmur. Abd : Soft non tender with normal bowel sounds. Neuro : Moves all ext. with no localized deficit. Ext : No edema with intact pulses.Non tender calves Derm : No rashes or decubitus ulcer. LABS/RADIOLOGY: WBC 5.7 h/h 11.4/31.9 lfts ok urine culture 07/02/[address] for [address] chest abdomen and pelvis with IV contrast as ordered NOTED NO EVIDENCE OF HYDRONEPHROSIS, RENAL CALCULI, OR HILAR MASS. ASSESSMENT/PLAN : patient to continue IV antibiotics. CONTINUE iv IMIPENEM 500 MG EVERY 8 HOURLY 07/04/17.-DAY 12 X2DAYS MORE. repeat UA urine culture clean catch -P PER PMD. PATIENT AWAITING DISPOSITION PER FAMILY. Objective - Vital Signs/Intake and Output Vital Signs (last 24 hours): Temp Pulse Resp BP Pulse Ox 98.6 F 85 20 123/70 97 07/16/17 15:00 07/16/17 17:06 07/16/17 15:00 07/16/17 17:06 07/16/17 17:06 Intake and Output: 07/16/17 07/17/17 18:59 06:59 Intake Total 550 Balance 550 - Medications Medications: Current Medications Enalapril Maleate (Vasotec) 5 mg PO DAILY [facility] Last Admin: 07/16/17 10:23 Dose: 5 mg Glipizide (Glucotrol Xl) 2.5 mg PO ACBD [facility] Last Admin: 07/16/17 17:53 Dose: 2.5 mg Imipenem/Cilastatin Sodium 500 (mg/ Sodium Chloride) 100 mls @ 100 mls/hr IVPB Q8H [facility] Last Admin: 07/16/17 14:39 Dose: 100 mls/hr Insulin Human Regular (Novolin R) 0 unit SC ACHS [facility] PRN Reason: Protocol Last Admin: 07/16/17 17:48 Dose: Not Given Metformin HCl (Glucophage) 500 mg PO BID [facility] Last Admin: 07/16/17 17:46 Dose: 500 mg Pantoprazole Sodium (Protonix Ec Tab) 40 mg PO DAILY [facility] Last Admin: 07/16/17 10:23 Dose: 40 mg - Labs Labs: 07/15/17 06:16 07/15/17 06:16 PT 13.0 SECONDS (9.7-12.2) H 07/01/17 23:24 INR 1.2 07/01/17 23:24 APTT 27 SECONDS (21-34) 07/01/17 23:24 Assessment and Plan (1) Change in mental status Status: Acute (2) UTI (urinary tract infection) Status: Acute (3) Ureteral calculus, left Status: Acute (4) Hydronephrosis, left Status: Acute (5) Falls frequently Status: Acute (6) COPD (chronic obstructive pulmonary disease) Status: Acute
[2017-07-17] MEDS: (Novolin R) Insulin Human Regular 100 units/ml vial SC SCH ×4 (08:29→21:24)
[2017-07-17] MEDS: GlipiZIDE 2.5 mg SR Tab PO SCH ×2 (08:30→17:29)
[2017-07-17] MEDS: Pantoprazole 40 mg EC Tab PO SCH (12:16)
--- NOTE | 2017-07-17 13:22 | CP.PCM.PN ---
Subjective - Date & Time of Evaluation Date of Evaluation: 07/17/17 Time of Evaluation: 13:22 - Subjective Subjective: CHIEF COMPLAINTS TODAY : AFEBRILE Offers no new complaints. ROS. patient refused to answer PE. Pt. is alert awake in no distress. V.S As noted in the chart Head ,ear nose,throat and eyes : Normal. Neck : Supple with normal carotids. Lungs: Clear air entry. Heart : S1 & S2 normal with S4. No murmur. Abd : Soft non tender with normal bowel sounds. Neuro : Moves all ext. with no localized deficit. Ext : No edema with intact pulses.Non tender calves Derm : No rashes or decubitus ulcer. LABS/RADIOLOGY: WBC 5.7 h/h 11.4/31.9 lfts ok urine culture 07/02/[address] for [address] chest abdomen and pelvis with IV contrast as ordered NOTED NO EVIDENCE OF HYDRONEPHROSIS, RENAL CALCULI, OR HILAR MASS. ASSESSMENT/PLAN : patient to continue IV antibiotics. CONTINUE iv IMIPENEM 500 MG EVERY 8 HOURLY 07/04/17.-DAY 13 X1 DAY MORE. repeat UA urine culture clean catch -P PER PMD. PATIENT AWAITING DISPOSITION PER FAMILY Objective - Vital Signs/Intake and Output Vital Signs (last 24 hours): Temp Pulse Resp BP Pulse Ox 97.7 F 75 20 123/67 96 07/17/17 07:59 07/17/17 07:59 07/17/17 07:59 07/17/17 10:07 07/17/17 07:59 Intake and Output: 07/17/17 07/17/17 06:59 18:59 Intake Total 220 Balance 220 - Medications Medications: Current Medications Enalapril Maleate (Vasotec) 5 mg PO DAILY [facility] Last Admin: 07/17/17 10:07 Dose: 5 mg Glipizide (Glucotrol Xl) 2.5 mg PO ACBD [facility] Last Admin: 07/17/17 08:30 Dose: Not Given Imipenem/Cilastatin Sodium 500 (mg/ Sodium Chloride) 100 mls @ 100 mls/hr IVPB Q8H [facility] Last Admin: 07/17/17 05:09 Dose: 100 mls/hr Insulin Human Regular (Novolin R) 0 unit SC ACHS [facility] PRN Reason: Protocol Last Admin: 07/17/17 12:15 Dose: Not Given Metformin HCl (Glucophage) 500 mg PO BID [facility] Last Admin: 07/17/17 10:07 Dose: 500 mg - Labs Labs: 07/15/17 06:16 07/15/17 06:16 PT 13.0 SECONDS (9.7-12.2) H 07/01/17 23:24 INR 1.2 07/01/17 23:24 APTT 27 SECONDS (21-34) 07/01/17 23:24 Assessment and Plan (1) Change in mental status Status: Acute (2) UTI (urinary tract infection) Status: Acute (3) Ureteral calculus, left Status: Acute (4) Hydronephrosis, left Status: Acute (5) Falls frequently Status: Acute (6) COPD (chronic obstructive pulmonary disease) Status: Acute
--- NOTE | 2017-07-17 13:36 | CP.PCM.PN ---
Subjective - Date & Time of Evaluation Date of Evaluation: 07/17/17 Time of Evaluation: 13:35 - Subjective Subjective: CHIEF COMPLAINTS TODAY : NO SP. COMPLAINTS ROS. PT. NOT ANSWERING PE. Pt. is alert awake in no distress. V.S As noted in the chart Head ,ear nose,throat and eyes : Normal. Neck : Supple with normal carotids. Lungs: Clear air entry. Heart : S1 & S2 normal with S4. No murmur. Abd : Soft non tender with normal bowel sounds. Neuro : Moves all ext. with no localized deficit. Ext : No edema with intact pulses.Non tender calves Derm : No rashes or decubitus ulcer. LABS/RADIOLOGY: CTABD/CHEST , NOTHING ACUTE ASSESSMENT/PLAN : FOR PLACEMENT IV AB FOR UTI Objective - Vital Signs/Intake and Output Vital Signs (last 24 hours): Temp Pulse Resp BP Pulse Ox 97.7 F 75 20 123/67 96 07/17/17 07:59 07/17/17 07:59 07/17/17 07:59 07/17/17 10:07 07/17/17 07:59 Intake and Output: 07/17/17 07/17/17 11:59 23:59 Intake Total 220 Balance 220 - Medications Medications: Current Medications Enalapril Maleate (Vasotec) 5 mg PO DAILY [facility] Last Admin: 07/17/17 10:07 Dose: 5 mg Glipizide (Glucotrol Xl) 2.5 mg PO ACBD [facility] Last Admin: 07/17/17 08:30 Dose: Not Given Imipenem/Cilastatin Sodium 500 (mg/ Sodium Chloride) 100 mls @ 100 mls/hr IVPB Q8H [facility] Last Admin: 07/17/17 05:09 Dose: 100 mls/hr Insulin Human Regular (Novolin R) 0 unit SC ACHS [facility] PRN Reason: Protocol Last Admin: 07/17/17 12:15 Dose: Not Given Metformin HCl (Glucophage) 500 mg PO BID [facility] Last Admin: 07/17/17 10:07 Dose: 500 mg - Labs Labs: 07/15/17 06:16 07/15/17 06:16 PT 13.0 SECONDS (9.7-12.2) H 07/01/17 23:24 INR 1.2 07/01/17 23:24 APTT 27 SECONDS (21-34) 07/01/17 23:24
[2017-07-18] MEDS: (Novolin R) Insulin Human Regular 100 units/ml vial SC SCH ×4 (07:52→22:06)
[2017-07-18] MEDS: GlipiZIDE 2.5 mg SR Tab PO SCH ×2 (07:52→17:10)
[2017-07-18] MEDS: Pantoprazole 40 mg EC Tab PO SCH (09:20)
--- NOTE | 2017-07-18 13:52 | CP.PCM.DIS ---
Provider - Provider Date of Admission: 07/01/17 23:43 Attending physician: Jama Salmon MD Time Spent in preparation of Discharge (in minutes): 30 Hospital Course - Lab Results Lab Results: Micro Results 07/02/17 14:33 Urine,Catheterized Urine Culture - Final Escherichia Coli Most Recent Lab Values WBC 5.7 K/uL (4.8-10.8) 07/15/17 06:16 RBC 3.71 Mil/uL (3.80-5.20) L 07/15/17 06:16 Hgb 11.4 g/dL (11.0-16.0) 07/15/17 06:16 Hct 31.9 % (34.0-47.0) L 07/15/17 06:16 MCV 86.0 fL (81.0-99.0) 07/15/17 06:16 MCH 30.7 pg (27.0-31.0) 07/15/17 06:16 MCHC 35.7 g/dL (33.0-37.0) 07/15/17 06:16 RDW 14.1 % (11.5-14.5) 07/15/17 06:16 Plt Count 244 K/uL (130-400) 07/15/17 06:16 MPV 6.9 fL (7.2-11.7) L 07/15/17 06:16 Neut % (Auto) 53.3 % (50.0-75.0) 07/15/17 06:16 Lymph % (Auto) 33.3 % (20.0-40.0) 07/15/17 06:16 [place] % (Auto) 7.4 % (0.0-10.0) 07/15/17 06:16 Eos % (Auto) 5.1 % (0.0-4.0) H 07/15/17 06:16 Baso % (Auto) 0.9 % (0.0-2.0) 07/15/17 06:16 Neut # 3.0 K/uL (1.8-7.0) 07/15/17 06:16 Lymph # 1.9 K/uL (1.0-4.3) 07/15/17 06:16 [place] # 0.4 K/uL (0.0-0.8) 07/15/17 06:16 Eos # 0.3 K/uL (0.0-0.7) 07/15/17 06:16 Baso # 0.0 K/uL (0.0-0.2) 07/15/17 06:16 PT 13.0 SECONDS (9.7-12.2) H 07/01/17 23:24 INR 1.2 07/01/17 23:24 APTT 27 SECONDS (21-34) 07/01/17 23:24 Sodium 139 mmol/L (132-148) 07/15/17 06:16 Potassium 3.5 mmol/L (3.6-5.2) L 07/15/17 06:16 Chloride 99 mmol/L (98-107) 07/15/17 06:16 Carbon Dioxide 29 mmol/L (22-30) 07/15/17 06:16 Anion Gap 15 (10-20) 07/15/17 06:16 BUN 14 mg/dL (7-17) 07/15/17 06:16 Creatinine 0.5 MG/DL (0.7-1.2) L 07/15/17 06:16 Est GFR ( Amer) > 60 07/15/17 06:16 Est GFR (Non-Af Amer) > 60 07/15/17 06:16 POC Glucose (mg/dL) 167 mg/dL (65-110) H 07/18/17 11:15 Random Glucose 83 mg/dL (65-105) 07/15/17 06:16 Calcium 9.5 mg/dl (8.6-10.4) 07/15/17 06:16 Total Bilirubin 0.5 mg/dL (0.2-1.3) 07/15/17 06:16 Direct Bilirubin 0.4 mg/dL (0.0-0.4) 07/12/17 08:36 AST 15 U/L (14-36) 07/15/17 06:16 ALT 20 U/L (9-52) 07/15/17 06:16 Alkaline Phosphatase 92 U/L (38-126) 07/15/17 06:16 Total Protein 7.1 g/dL (6.3-8.3) 07/15/17 06:16 Albumin 3.7 g/dL (3.5-5.0) 07/15/17 06:16 Globulin 3.4 gm/dL (2.2-3.9) 07/15/17 06:16 Albumin/Globulin Ratio 1.1 (1.0-2.1) 07/15/17 06:16 TSH 3rd Generation 1.51 mIU/L (0.46-4.68) 07/01/17 23:24 Urine Color Yellow (YELLOW) 07/02/17 14:53 Urine Clarity Hazy (Clear) 07/02/17 14:53 Urine pH 5.0 (5.0-8.0) 07/02/17 14:53 Ur Specific [place] 1.020 (1.003-1.030) 07/02/17 14:53 Urine Protein Negative mg/dL (NEGATIVE) 07/02/17 14:53 Urine Glucose (UA) Normal mg/dL (Normal) 07/02/17 14:53 Urine Ketones Negative mg/dL (NEGATIVE) 07/02/17 14:53 Urine Blood 1+ (NEGATIVE) H 07/02/17 14:53 Urine Nitrate Positive (NEGATIVE) H 07/02/17 14:53 Urine Bilirubin Negative (NEGATIVE) 07/02/17 14:53 Urine Urobilinogen Normal mg/dL (0.2-1.0) 07/02/17 14:53 Ur Leukocyte Esterase 3+ Bibiana/uL (Negative) H 07/02/17 14:53 Urine WBC (Auto) 166 /hpf (0-5) H 07/02/17 14:53 Urine RBC (Auto) 9 /hpf (0-3) H 07/02/17 14:53 Urine WBC Clumps (Auto) Many /hpf (NONE) H 07/02/17 14:53 Ur Squamous Epith Cells 12 /hpf (0-5) H 07/02/17 14:53 Urine Bacteria Rare (<OCC) 07/02/17 14:53 - Hospital Course Hospital Course: PER THE FAMILY PT HAS INCREASING MENTAL CONFUSION WITH FALLS AND UNABLE TO FUNCTION AT HOME AND DO HER ADL . FAMILY IS LOOKING FOR ANIMAL ASSISTED THERAPIST REHAB AND THEN DAUGHTER WILL TRANSFER PT TO RI URINE WAS POS FOR INFECTION PT RECEIVED COMPLETE 2 WEEKS IV AB PT CURRENTLY HAS NO SYMPTOMS PT HAS NO DAYS LEFT FOR JUAN M FAMILY TO MAKE ARRANGEMENTS FOR HOME Discharge Exam - Head Exam Head Exam: NORMAL INSPECTION Discharge Plan - Follow Up Plan Condition: FAIR Disposition: HOME/ ROUTINE
[2017-07-19] MEDS: (Novolin R) Insulin Human Regular 100 units/ml vial SC SCH ×4 (07:30→21:16)
[2017-07-19] MEDS: GlipiZIDE 2.5 mg SR Tab PO SCH ×2 (09:31→17:40)
[2017-07-19] MEDS: Pantoprazole 40 mg EC Tab PO SCH (09:31)
[2017-07-20] MEDS: (Novolin R) Insulin Human Regular 100 units/ml vial SC SCH ×4 (08:10→21:31)
[2017-07-20] MEDS: GlipiZIDE 2.5 mg SR Tab PO SCH ×2 (08:11→17:43)
[2017-07-20] MEDS: Pantoprazole 40 mg EC Tab PO SCH (09:26)
--- NOTE | 2017-07-20 13:40 | CP.PCM.PN ---
Subjective - Date & Time of Evaluation Date of Evaluation: 07/20/17 Time of Evaluation: 13:40 - Subjective Subjective: CHIEF COMPLAINTS TODAY : NO SP. COMPLAINTS ROS. PT. NOT ANSWERING PE. Pt. is alert awake in no distress. V.S As noted in the chart Head ,ear nose,throat and eyes : Normal. Neck : Supple with normal carotids. Lungs: Clear air entry. Heart : S1 & S2 normal with S4. No murmur. Abd : Soft non tender with normal bowel sounds. Neuro : Moves all ext. with no localized deficit. Ext : No edema with intact pulses.Non tender calves Derm : No rashes or decubitus ulcer. LABS/RADIOLOGY: CTABD/CHEST , NOTHING ACUTE ASSESSMENT/PLAN : FOR PLACEMENT Objective - Vital Signs/Intake and Output Vital Signs (last 24 hours): Temp Pulse Resp BP Pulse Ox 98.5 F 87 20 138/79 97 07/20/17 08:00 07/20/17 08:00 07/20/17 08:00 07/20/17 09:26 07/20/17 08:00 Intake and Output: 07/20/17 07/20/17 11:59 23:59 Intake Total 220 Balance 220 - Medications Medications: Current Medications Enalapril Maleate (Vasotec) 5 mg PO DAILY [facility] Last Admin: 07/20/17 09:26 Dose: 5 mg Glipizide (Glucotrol Xl) 2.5 mg PO ACBD [facility] Last Admin: 07/20/17 08:11 Dose: 2.5 mg Imipenem/Cilastatin Sodium 500 (mg/ Sodium Chloride) 100 mls @ 100 mls/hr IVPB Q8H [facility] Last Admin: 07/20/17 05:20 Dose: 100 mls/hr Insulin Human Regular (Novolin R) 0 unit SC ACHS [facility] PRN Reason: Protocol Last Admin: 07/20/17 11:52 Dose: 3 unit Metformin HCl (Glucophage) 500 mg PO BID [facility] Last Admin: 07/20/17 09:26 Dose: 500 mg Pantoprazole Sodium (Protonix Ec Tab) 40 mg PO DAILY [facility] Last Admin: 07/20/17 09:26 Dose: 40 mg - Labs Labs: 07/15/17 06:16 07/15/17 06:16 PT 13.0 SECONDS (9.7-12.2) H 07/01/17 23:24 INR 1.2 07/01/17 23:24 APTT 27 SECONDS (21-34) 07/01/17 23:24
[2017-07-21] MEDS: (Novolin R) Insulin Human Regular 100 units/ml vial SC SCH ×4 (08:17→23:26)
[2017-07-21] MEDS: Pantoprazole 40 mg EC Tab PO SCH (09:36)
[2017-07-21] MEDS: GlipiZIDE 2.5 mg SR Tab PO SCH ×2 (09:48→18:11)
--- NOTE | 2017-07-21 14:24 | CP.PCM.PN ---
Subjective - Date & Time of Evaluation Date of Evaluation: 07/21/17 Time of Evaluation: 14:24 - Subjective Subjective: CHIEF COMPLAINTS TODAY : NO SP. COMPLAINTS ROS. PT. NOT ANSWERING PE. Pt. is alert awake in no distress. V.S As noted in the chart Head ,ear nose,throat and eyes : Normal. Neck : Supple with normal carotids. Lungs: Clear air entry. Heart : S1 & S2 normal with S4. No murmur. Abd : Soft non tender with normal bowel sounds. Neuro : Moves all ext. with no localized deficit. Ext : No edema with intact pulses.Non tender calves Derm : No rashes or decubitus ulcer. LABS/RADIOLOGY: CTABD/CHEST , NOTHING ACUTE ASSESSMENT/PLAN : FOR PLACEMENT Objective - Vital Signs/Intake and Output Vital Signs (last 24 hours): Temp Pulse Resp BP Pulse Ox 98.1 F 80 20 122/82 96 07/21/17 07:52 07/21/17 07:52 07/21/17 07:52 07/21/17 09:36 07/21/17 07:52 Intake and Output: 07/21/17 07/21/17 11:59 23:59 Intake Total 450 Balance 450 - Medications Medications: Current Medications Enalapril Maleate (Vasotec) 5 mg PO DAILY [facility] Last Admin: 07/21/17 09:36 Dose: 5 mg Glipizide (Glucotrol Xl) 2.5 mg PO ACBD [facility] Last Admin: 07/21/17 09:48 Dose: 2.5 mg Imipenem/Cilastatin Sodium 500 (mg/ Sodium Chloride) 100 mls @ 100 mls/hr IVPB Q8H [facility] Last Admin: 07/21/17 13:42 Dose: 100 mls/hr Insulin Human Regular (Novolin R) 0 unit SC ACHS [facility] PRN Reason: Protocol Last Admin: 07/21/17 12:07 Dose: 4 unit Metformin HCl (Glucophage) 500 mg PO BID [facility] Last Admin: 07/21/17 09:37 Dose: 500 mg Pantoprazole Sodium (Protonix Ec Tab) 40 mg PO DAILY [facility] Last Admin: 07/21/17 09:36 Dose: 40 mg - Labs Labs: 07/15/17 06:16 07/15/17 06:16 PT 13.0 SECONDS (9.7-12.2) H 07/01/17 23:24 INR 1.2 07/01/17 23:24 APTT 27 SECONDS (21-34) 07/01/17 23:24
[2017-07-22] MEDS: (Novolin R) Insulin Human Regular 100 units/ml vial SC SCH ×4 (08:15→23:05)
[2017-07-22] MEDS: Pantoprazole 40 mg EC Tab PO SCH (08:58)
--- NOTE | 2017-07-22 13:39 | CP.PCM.PN ---
Subjective - Date & Time of Evaluation Date of Evaluation: 07/22/17 Time of Evaluation: 13:38 - Subjective Subjective: CHIEF COMPLAINTS TODAY : NO SP. COMPLAINTS ROS. PT. NOT ANSWERING PE. Pt. is alert awake in no distress. V.S As noted in the chart Head ,ear nose,throat and eyes : Normal. Neck : Supple with normal carotids. Lungs: Clear air entry. Heart : S1 & S2 normal with S4. No murmur. Abd : Soft non tender with normal bowel sounds. Neuro : Moves all ext. with no localized deficit. Ext : No edema with intact pulses.Non tender calves Derm : No rashes or decubitus ulcer. LABS/RADIOLOGY: CTABD/CHEST , NOTHING ACUTE ASSESSMENT/PLAN : FOR PLACEMENT Objective - Vital Signs/Intake and Output Vital Signs (last 24 hours): Temp Pulse Resp BP Pulse Ox 98 F 80 20 117/70 95 07/22/17 07:31 07/22/17 07:31 07/22/17 07:31 07/22/17 08:58 07/22/17 07:31 Intake and Output: 07/22/17 07/22/17 11:59 23:59 Intake Total 100 Balance 100 - Medications Medications: Current Medications Enalapril Maleate (Vasotec) 5 mg PO DAILY [facility] Last Admin: 07/22/17 08:58 Dose: 5 mg Insulin Human Regular (Novolin R) 0 unit SC ACHS [facility] PRN Reason: Protocol Last Admin: 07/22/17 12:29 Dose: 3 unit Metformin HCl (Glucophage) 500 mg PO BID [facility] Last Admin: 07/22/17 08:58 Dose: 500 mg Pantoprazole Sodium (Protonix Ec Tab) 40 mg PO DAILY [facility] Last Admin: 07/22/17 08:58 Dose: 40 mg - Labs Labs: 07/15/17 06:16 07/15/17 06:16 PT 13.0 SECONDS (9.7-12.2) H 07/01/17 23:24 INR 1.2 07/01/17 23:24 APTT 27 SECONDS (21-34) 07/01/17 23:24
[2017-07-23] MEDS: (Novolin R) Insulin Human Regular 100 units/ml vial SC SCH ×4 (08:37→21:37)
[2017-07-23] MEDS: Pantoprazole 40 mg EC Tab PO SCH (09:44)
--- NOTE | 2017-07-23 13:54 | CP.PCM.PN ---
Subjective - Date & Time of Evaluation Date of Evaluation: 07/23/17 Time of Evaluation: 13:54 - Subjective Subjective: CHIEF COMPLAINTS TODAY : NO SP. COMPLAINTS ROS. PT. NOT ANSWERING PE. Pt. is alert awake in no distress. V.S As noted in the chart Head ,ear nose,throat and eyes : Normal. Neck : Supple with normal carotids. Lungs: Clear air entry. Heart : S1 & S2 normal with S4. No murmur. Abd : Soft non tender with normal bowel sounds. Neuro : Moves all ext. with no localized deficit. Ext : No edema with intact pulses.Non tender calves Derm : No rashes or decubitus ulcer. LABS/RADIOLOGY: CTABD/CHEST , NOTHING ACUTE ASSESSMENT/PLAN : FOR PLACEMENT Objective - Vital Signs/Intake and Output Vital Signs (last 24 hours): Temp Pulse Resp BP Pulse Ox 98.4 F 91 H 20 124/74 98 07/23/17 08:40 07/23/17 08:40 07/23/17 08:40 07/23/17 09:45 07/23/17 08:40 Intake and Output: 07/23/17 07/23/17 11:59 23:59 Intake Total 150 Balance 150 - Medications Medications: Current Medications Enalapril Maleate (Vasotec) 5 mg PO DAILY [facility] Last Admin: 07/23/17 09:45 Dose: 5 mg Insulin Human Regular (Novolin R) 0 unit SC ACHS [facility] PRN Reason: Protocol Last Admin: 07/23/17 12:37 Dose: 2 unit Metformin HCl (Glucophage) 500 mg PO BID [facility] Last Admin: 07/23/17 09:44 Dose: 500 mg Pantoprazole Sodium (Protonix Ec Tab) 40 mg PO DAILY [facility] Last Admin: 07/23/17 09:44 Dose: 40 mg - Labs Labs: 07/15/17 06:16 07/15/17 06:16 PT 13.0 SECONDS (9.7-12.2) H 07/01/17 23:24 INR 1.2 07/01/17 23:24 APTT 27 SECONDS (21-34) 07/01/17 23:24
[2017-07-24] MEDS: (Novolin R) Insulin Human Regular 100 units/ml vial SC SCH ×4 (08:14→22:00)
[2017-07-24] MEDS: Pantoprazole 40 mg EC Tab PO SCH (09:23)
--- NOTE | 2017-07-24 10:27 | CP.PCM.PN ---
Subjective - Date & Time of Evaluation Date of Evaluation: 07/24/17 Time of Evaluation: 10:27 - Subjective Subjective: CHIEF COMPLAINTS TODAY : NO SP. COMPLAINTS ROS. PT. NOT ANSWERING PE. Pt. is alert awake in no distress. V.S As noted in the chart Head ,ear nose,throat and eyes : Normal. Neck : Supple with normal carotids. Lungs: Clear air entry. Heart : S1 & S2 normal with S4. No murmur. Abd : Soft non tender with normal bowel sounds. Neuro : Moves all ext. with no localized deficit. Ext : No edema with intact pulses.Non tender calves Derm : No rashes or decubitus ulcer. LABS/RADIOLOGY: CTABD/CHEST , NOTHING ACUTE ASSESSMENT/PLAN : FOR PLACEMENT Objective - Vital Signs/Intake and Output Vital Signs (last 24 hours): Temp Pulse Resp BP Pulse Ox 97.5 F L 87 20 131/67 98 07/24/17 07:51 07/24/17 07:51 07/24/17 07:51 07/24/17 09:24 07/24/17 07:51 Intake and Output: 07/23/17 07/24/17 23:59 11:59 Intake Total 490 100 Balance 490 100 - Medications Medications: Current Medications Enalapril Maleate (Vasotec) 5 mg PO DAILY [facility] Last Admin: 07/24/17 09:24 Dose: 5 mg Insulin Human Regular (Novolin R) 0 unit SC ACHS [facility] PRN Reason: Protocol Last Admin: 07/24/17 08:14 Dose: 2 unit Metformin HCl (Glucophage) 500 mg PO BID [facility] Last Admin: 07/24/17 09:23 Dose: 500 mg Pantoprazole Sodium (Protonix Ec Tab) 40 mg PO DAILY [facility] Last Admin: 07/24/17 09:23 Dose: 40 mg - Labs Labs: 07/15/17 06:16 07/15/17 06:16 PT 13.0 SECONDS (9.7-12.2) H 07/01/17 23:24 INR 1.2 07/01/17 23:24 APTT 27 SECONDS (21-34) 07/01/17 23:24
[2017-07-25 07:24] VITALS: BP 126/79; PULSE 92; TEMP 97.8; O2SAT 96
[2017-07-25] MEDS: (Novolin R) Insulin Human Regular 100 units/ml vial SC SCH (07:46)
[2017-07-25] MEDS: Pantoprazole 40 mg EC Tab PO SCH (09:35)
--- NOTE | 2017-08-08 12:04 | CP.PCM.DIS ---
Provider - Provider Date of Admission: 07/01/17 23:43 Attending physician: Jama Salmon MD Time Spent in preparation of Discharge (in minutes): 30 Hospital Course - Lab Results Lab Results: Micro Results 07/02/17 14:33 Urine,Catheterized Urine Culture - Final Escherichia Coli Most Recent Lab Values WBC 5.7 K/uL (4.8-10.8) 07/15/17 06:16 RBC 3.71 Mil/uL (3.80-5.20) L 07/15/17 06:16 Hgb 11.4 g/dL (11.0-16.0) 07/15/17 06:16 Hct 31.9 % (34.0-47.0) L 07/15/17 06:16 MCV 86.0 fL (81.0-99.0) 07/15/17 06:16 MCH 30.7 pg (27.0-31.0) 07/15/17 06:16 MCHC 35.7 g/dL (33.0-37.0) 07/15/17 06:16 RDW 14.1 % (11.5-14.5) 07/15/17 06:16 Plt Count 244 K/uL (130-400) 07/15/17 06:16 MPV 6.9 fL (7.2-11.7) L 07/15/17 06:16 Neut % (Auto) 53.3 % (50.0-75.0) 07/15/17 06:16 Lymph % (Auto) 33.3 % (20.0-40.0) 07/15/17 06:16 [place] % (Auto) 7.4 % (0.0-10.0) 07/15/17 06:16 Eos % (Auto) 5.1 % (0.0-4.0) H 07/15/17 06:16 Baso % (Auto) 0.9 % (0.0-2.0) 07/15/17 06:16 Neut # 3.0 K/uL (1.8-7.0) 07/15/17 06:16 Lymph # 1.9 K/uL (1.0-4.3) 07/15/17 06:16 Chase # 0.4 K/uL (0.0-0.8) 07/15/17 06:16 Eos # 0.3 K/uL (0.0-0.7) 07/15/17 06:16 Baso # 0.0 K/uL (0.0-0.2) 07/15/17 06:16 PT 13.0 SECONDS (9.7-12.2) H 07/01/17 23:24 INR 1.2 07/01/17 23:24 APTT 27 SECONDS (21-34) 07/01/17 23:24 Sodium 139 mmol/L (132-148) 07/15/17 06:16 Potassium 3.5 mmol/L (3.6-5.2) L 07/15/17 06:16 Chloride 99 mmol/L (98-107) 07/15/17 06:16 Carbon Dioxide 29 mmol/L (22-30) 07/15/17 06:16 Anion Gap 15 (10-20) 07/15/17 06:16 BUN 14 mg/dL (7-17) 07/15/17 06:16 Creatinine 0.5 MG/DL (0.7-1.2) L 07/15/17 06:16 Est GFR ( Amer) > 60 07/15/17 06:16 Est GFR (Non-Af Amer) > 60 07/15/17 06:16 POC Glucose (mg/dL) 168 mg/dL (65-110) H 07/25/17 07:01 Random Glucose 83 mg/dL (65-105) 07/15/17 06:16 Calcium 9.5 mg/dl (8.6-10.4) 07/15/17 06:16 Total Bilirubin 0.5 mg/dL (0.2-1.3) 07/15/17 06:16 Direct Bilirubin 0.4 mg/dL (0.0-0.4) 07/12/17 08:36 AST 15 U/L (14-36) 07/15/17 06:16 ALT 20 U/L (9-52) 07/15/17 06:16 Alkaline Phosphatase 92 U/L (38-126) 07/15/17 06:16 Total Protein 7.1 g/dL (6.3-8.3) 07/15/17 06:16 Albumin 3.7 g/dL (3.5-5.0) 07/15/17 06:16 Globulin 3.4 gm/dL (2.2-3.9) 07/15/17 06:16 Albumin/Globulin Ratio 1.1 (1.0-2.1) 07/15/17 06:16 TSH 3rd Generation 1.51 mIU/L (0.46-4.68) 07/01/17 23:24 Urine Color Yellow (YELLOW) 07/02/17 14:53 Urine Clarity Hazy (Clear) 07/02/17 14:53 Urine pH 5.0 (5.0-8.0) 07/02/17 14:53 Ur Specific [place] 1.020 (1.003-1.030) 07/02/17 14:53 Urine Protein Negative mg/dL (NEGATIVE) 07/02/17 14:53 Urine Glucose (UA) Normal mg/dL (Normal) 07/02/17 14:53 Urine Ketones Negative mg/dL (NEGATIVE) 07/02/17 14:53 Urine Blood 1+ (NEGATIVE) H 07/02/17 14:53 Urine Nitrate Positive (NEGATIVE) H 07/02/17 14:53 Urine Bilirubin Negative (NEGATIVE) 07/02/17 14:53 Urine Urobilinogen Normal mg/dL (0.2-1.0) 07/02/17 14:53 Ur Leukocyte Esterase 3+ [place]/uL (Negative) H 07/02/17 14:53 Urine WBC (Auto) 166 /hpf (0-5) H 07/02/17 14:53 Urine RBC (Auto) 9 /hpf (0-3) H 07/02/17 14:53 Urine WBC Clumps (Auto) Many /hpf (NONE) H 07/02/17 14:53 Ur Squamous Epith Cells 12 /hpf (0-5) H 07/02/17 14:53 Urine Bacteria Rare (<OCC) 07/02/17 14:53 - Hospital Course Hospital Course: PER THE FAMILY PT HAS INCREASING MENTAL CONFUSION WITH FALLS AND UNABLE TO FUNCTION AT HOME AND DO HER ADL . FAMILY IS LOOKING FOR [facility]OTOGR[facility] AND THEN DAUGHTER WILL TRANSFER PT TO ME URINE WAS POS FOR INFECTION PT RECEIVED COMPLETE 2 WEEKS IV AB PT CURRENTLY HAS NO SYMPTOMS PT HAS NO DAYS LEFT FOR JUAN M FAMILY TO MAKE ARRANGEMENTS FOR HOME Discharge Exam - Head Exam Head Exam: NORMAL INSPECTION Discharge Plan - Follow Up Plan Condition: FAIR Disposition: HOME/ ROUTINE Instructions: Diabetes Mellitus Type 2 in Adults (GEN), COPD (Chronic Obstructive Pulmonary Disease) (DC), Altered Mental Status (GEN) Referrals: Jama Salmon MD [Staff Provider] -
== END 2017-07-25 10:30 | disposition home or self-care (01) | DRG 57 ==
LOC: C.ER 21:54 → C.9E 23:43 → C.3T 07-02 00:47
PROVIDERS: ADMIT Internal Medicine Cardiovascular Disease; ATTEND Internal Medicine Cardiovascular Disease
DX: G30.1 Alzheimer's disease with late onset (principal); E11.22 Type 2 diabetes mellitus with diabetic chronic kidney disease; N39.0 Urinary tract infection, site not specified; F02.80 Dementia in other diseases classified elsewhere, unspecified severity, without behavioral disturbance, psychotic disturbance, mood disturbance, and anxiety; I12.9 Hypertensive chronic kidney disease with stage 1 through stage 4 chronic kidney disease, or unspecified chronic kidney disease; M17.0 Bilateral primary osteoarthritis of knee; E78.00 Pure hypercholesterolemia, unspecified; M81.0 Age-related osteoporosis without current pathological fracture; N18.9 Chronic kidney disease, unspecified; Z90.49 Acquired absence of other specified parts of digestive tract; M19.012 Primary osteoarthritis, left shoulder; Z91.81 History of falling; R32 Unspecified urinary incontinence; B96.20 Unspecified Escherichia coli [E. coli] as the cause of diseases classified elsewhere; Z79.4 Long term (current) use of insulin